=== PATIENT | male | born 1930 | race Caucasian/White ===

== ENCOUNTER → 2016-08-02 | Outpatient (CLI) | payer MEDICARE, BC ==
[2016-08-02 13:13] LABS: Blood Urea Nitrogen 16 mg/dL (9-20); Non-African American GFR(MDRD) 58 (>60 ml/min/1.73 sqM)
--- NOTE | 2016-08-02 14:57 | CT ---
CT angiogram thoracic and abdominal aorta HISTORY: Iliac aneurysm Helical acquisition obtained through the aorta and pelvis pre- and postadministration following 80 cc Visipaque IV. Three-dimensional reconstructions performed on an alternate workstation. Correlation to previous exam 21 July 2015, 12 July 2012 Findings at the lung bases are again noted, there are calcified pleural plaques, post median sternoto my change, soft tissue density present along the left hemidiaphragm with some associated calcificatio n. Calcified right hilar, subcarinal nodes left hilar nodes again noted. No thoracic aortic root aneu rysm evident, ascending aorta 3.8 cm. Descending aorta measures 2.8 cm. At the infrarenal location th ere may be a small limited dissection, aorta measures 2.8 cm, some luminal plaque is present. More di stally at the level just proximal to the bifurcation there is also luminal plaque, possible limited d issection, diameter is approximately 2.9 cm. Right common iliac artery also shows luminal irregularit y and measures 2.8 cm, there may be a limited dissection. Left common iliac artery shows a smaller ar ea of possible limited dissection distally with luminal plaque, maximal diameter of the common iliac artery on the left 14 mm. Internal and external iliac arteries are patent and show normal caliber, co mmon femoral, proximal deep and superficial femoral arteries show normal caliber. Superior mesenteric artery, celiac axis, renal arteries, superior aortic branch vessels are patent. Granulomatous changes also present in the liver and spleen. IMPRESSION: Aneurysmal change as described, additional findings above
== END | disposition home or self-care (01) ==
LOC: RADCTMAIN 12:41
PROVIDERS: ATTEND Thoracic Surgery (Cardiothoracic Vascular Surgery)
DX: I72.3 Aneurysm of iliac artery (principal)
CPT/HCPCS: 82565; 84520; 75635; 71275; 36415; Q9967

== ENCOUNTER 2017-11-18 04:27 | Inpatient (IN) | payer MEDICARE, BC ==
--- NOTE | 2017-11-18 04:49 | CT ---
EXAMINATION TYPE: CT brain wo con DATE OF EXAM: 11/18/2017 COMPARISON: 11/19/2015 HISTORY: stroke CT DLP: 1380 mGycm Automated exposure control for dose reduction was used. FINDINGS: There is severe diffuse cerebral atrophy. There is hypodensity in the periventricular white matter. T here is no mass effect nor midline shift. There is enlargement of the ventricles. There is no evidenc e of intracranial hemorrhage. There is extensive mucosal thickening and opacification in the ethmoid and maxillary sinuses. This is also present to a lesser extent in the sphenoid sinus. I see no focal bone destruction. IMPRESSION: ADVANCED ATROPHY AND CHRONIC SMALL VESSEL ISCHEMIA. NO ACUTE INTRACRANIAL ABNORMALITY. I DO NOT SEE E VIDENCE OF AN ACUTE INFARCT. SINUSITIS. NO SIGNIFICANT CHANGE COMPARED TO OLD EXAM.
[2017-11-18 04:59] LABS: Basophils % (A) 0 %; Eosinophils # (A) 0.8 k/uL (0-0.7); Eosinophils % (A) 11 %; HCT 36.6 % (39.0-53.0); HGB 12.2 gm/dL (13.0-17.5); Lymphocytes # (A) 2.6 k/uL (1.0-4.8); Lymphocytes % (A) 36 %; MCH 30.7 pg (25.0-35.0); MCHC 33.4 g/dL (31.0-37.0); MCV 91.8 fL (80.0-100.0); Mean Platelet Volume 9.1; Monocytes # (A) 0.7 k/uL (0-1.0); Monocytes % (A) 10 %; Neutrophils % (A) 41 %; Platelet Count 201 k/uL (150-450); RBC 3.99 m/uL (4.30-5.90); RDW 13.2 % (11.5-15.5); WBC 7.3 k/uL (3.8-10.6)
--- NOTE | 2017-11-18 05:02 | CT ---
EXAMINATION TYPE: CT angio head neck DATE OF EXAM: 11/18/2017 HISTORY: stroke COMPARISON: None CT DLP: 268.30 mGycm. Automated Exposure Control for Dose Reduction was Utilized. TECHNIQUE: CTA scan of the neck is performed with IV Contrast, patient injected with 65 mL of Isovue 370, axial images are obtained, coronal and sagittal reformatted images are reviewed. Three-D recons tructed images are created on an independent workstation and reviewed. FINDINGS: The ascending aorta measures 3.7 cm at the top of the aortic arch. There is normal branching pattern of the great vessels on the aortic arch. There is arterial flow in both vertebral arteries which are fairly symmetric. There is arterial flow in both common carotid arteries. There is very severe stenos is at the origin of the right internal carotid artery. Stenosis is estimated 90%. There is extensive plaque on the left side at the carotid artery bifurcation an estimated stenosis of 75%. The vertebral artery on the left side fills the basilar artery. Basilar artery appears to fill entire ly from the left side. There is arterial flow in the anterior middle and posterior cerebral arteries. I see no evidence of a neurysm or neovascularity. I see no sign of intracranial arterial stenosis. There is no mass effect. There is no evidence of spasm. There is some atherosclerotic plaque and calc ification in the intracranial internal carotid arteries without evidence of significant stenosis. There is normal contrast opacification of the venous sinuses. Impression Atherosclerotic vascular disease. There is approximate 90% stenosis at the origin of the right buying intern al carotid artery. There is approximate 75% stenosis at the origin left internal carotid artery. No e vidence of any significant intracranial arterial stenosis.
[2017-11-18 05:06] LABS: Glucose,Whole Blood 117 mg/dL (75-99)
[2017-11-18 05:09] LABS: INR 1.1 (<1.2); Partial Thromboplastin Time 22.8 sec (22.0-30.0); Prothrombin Time 10.3 sec (9.0-12.0)
[2017-11-18 05:10] LABS: Albumin 3.1 g/dL (3.5-5.0); Calcium 8.9 mg/dL (8.4-10.2); Creatine Kinase 38 U/L (55-170); Potassium 4.3 mmol/L (3.5-5.1); Total Bilirubin 0.4 mg/dL (0.2-1.3); Total Protein 6.1 g/dL (6.3-8.2)
[2017-11-18 05:22] LABS: Creatine Kinase MB 0.4 ng/mL (0.0-2.4); Troponin I <0.012 ng/mL (0.000-0.034)
--- NOTE | 2017-11-18 05:33 | XR ---
EXAMINATION TYPE: XR chest 1V portable DATE OF EXAM: 11/18/2017 COMPARISON: 08/28/2016 HISTORY: Altered mental status TECHNIQUE: Single frontal view of the chest is obtained. FINDINGS: There is slight blunting of costophrenic angles. There is no heart failure. Thoracic aorta is atheromatous. There are sternal wires. There are chest leads. There is some coarsening of interst itial markings. IMPRESSION: Pulmonary fibrotic changes. No heart failure. There is some pleural reaction at the lung bases that is slightly worse than last exam.
[2017-11-18] MEDS ORDERED: ASPIRIN 325 MG TAB PO STA (07:26)
--- NOTE | 2017-11-18 07:26 | ED ---
Neuro HPI - General Chief Complaint: Altered Mental Status Stated Complaint: Neuro Deficits Time Seen by Provider: 11/18/17 04:29 Source: EMS Mode of arrival: EMS Limitations: language barrier, altered mental status - History of Present Illness Is the patient presenting with stroke symptoms?: Yes Last Known Well Date: 11/17/17 Last Known Well Time: 23:00 Onset/Timin -: hour(s) Initial Comments: This patient is an 87-year-old man brought to be evaluated for suspected stroke. The history is from the patient's partner, she states that he had gone to bed around 11 PM and appeared to be in his usual state of health. He does have moderate underlying dementia. He had gotten up around 4 AM to use the bathroom. She states that when he was going back to bed he appeared to be significantly weak and then slumped down next to the toilet resting his head on his arms and they were not able to get him back up. They state that at that time his speech did appear to be slurred. They also felt he had some right- sided weakness of face and possibly body. The patient does have history of previous TIA. Location: speech, right face History of same: Yes Place: home Severity: moderate Quality: weak Improves With: none Worsens With: none On Anticoagulants: No Associated Symptoms: denies other symptoms Treatments Prior to Arrival: none - Related Data Home Medications: Home Medications Medication Instructions Recorded Confirmed Albuterol Sulfate [Proventil Hfa] 6.7 gm INHALATION RT-DAILY PRN 12/03/13 Mometasone Furoate [Asmanex] 220 mcg INHALATION RT-BID 12/03/13 11/18/17 Omeprazole [PriLOSEC] 20 mg PO DAILY 12/03/13 11/18/17 Aspirin EC [Ecotrin] 81 mg PO DAILY 11/12/15 11/18/17 Cholecalciferol [Vitamin D3] 2,000 units PO DAILY 11/12/15 11/18/17 Metoprolol Tartrate [Lopressor] 25 mg PO DAILY 11/18/17 11/18/17 Allergies/Adverse Reactions: Allergies Allergy/AdvReac Type Severity Reaction Status Date / Time No Known Allergies Allergy Verified 11/18/17 10:13 Review of Systems ROS Statement: Those systems with pertinent positive or pertinent negative responses have been documented in the HPI. ROS Other: All systems not noted in ROS Statement are negative. Limitations: ROS unobtainable due to patients medical condition Constitutional: Reports: fever (Patient reportedly felt hot, but no temperature measured) Respiratory: Denies: cough, dyspnea Cardiovascular: Denies: syncope Gastrointestinal: Denies: vomiting, diarrhea Neurological: Reports: weakness, confusion, abnormal gait General Exam Limitations: language barrier, altered mental status General appearance: alert Head exam: Present: atraumatic, normocephalic Eye exam: Present: normal appearance, PERRL, EOMI. Absent: scleral icterus, conjunctival injection ENT exam: Present: normal oropharynx, other (Right-sided facial droop) Neck exam: Present: normal inspection, full ROM. Absent: meningismus Respiratory exam: Present: normal lung sounds bilaterally. Absent: respiratory distress, wheezes, rales, rhonchi, stridor Cardiovascular Exam: Present: regular rate, normal rhythm, systolic murmur. Absent: diastolic murmur, rubs, gallop GI/Abdominal exam: Present: soft. Absent: distended, tenderness, guarding, rebound, mass Extremities exam: Present: normal inspection, normal capillary refill. Absent: pedal edema, calf tenderness Back exam: Present: normal inspection Neurological exam: Present: alert, motor sensory deficit (Patient not moving the right side equally), other (Patient is not able to follow commands, though on observation he does appear to not move the right side equally though he is able to overcome gravity.). Absent: oriented X3 (Patient is oriented to person only), CN II-XII intact (There is right-sided facial droop) Skin exam: Present: warm, dry, intact, normal color. Absent: rash Stroke MDM - Lab Data Result diagrams: 11/18/17 04:41 11/18/17 04:41 Lab Results 11/18/17 11/18/17 11/18/17 Range/Units 04:41 04:41 04:41 WBC 7.3 (3.8-10.6) k/uL RBC 3.99 L (4.30-5.90) m/uL Hgb 12.2 L (13.0-17.5) gm/dL Hct 36.6 L (39.0-53.0) % MCV 91.8 (80.0-100.0) fL MCH 30.7 (25.0-35.0) pg MCHC 33.4 (31.0-37.0) g/dL RDW 13.2 (11.5-15.5) % Plt Count 201 (150-450) k/uL Neutrophils % 41 % Lymphocytes % 36 % Monocytes % 10 % Eosinophils % 11 % Basophils % 0 % Neutrophils # 3.0 (1.3-7.7) k/uL Lymphocytes # 2.6 (1.0-4.8) k/uL Monocytes # 0.7 (0-1.0) k/uL Eosinophils # 0.8 H (0-0.7) k/uL Basophils # 0.0 (0-0.2) k/uL PT (9.0-12.0) sec INR (<1.2) APTT (22.0-30.0) sec Sodium 136 L (137-145) mmol/L Potassium 4.3 (3.5-5.1) mmol/L Chloride 107 (98-107) mmol/L Carbon Dioxide 22 (22-30) mmol/L Anion Gap 7 mmol/L BUN 17 (9-20) mg/dL Creatinine 1.30 H (0.66-1.25) mg/dL Est GFR (CKD-EPI)AfAm 57 (>60 ml/min/1.73 sqM) Est GFR (CKD-EPI)NonAf 49 (>60 ml/min/1.73 sqM) Glucose 117 H (74-99) mg/dL POC Glucose (mg/dL) (75-99) mg/dL POC Glu Beauty [employer] Manager ID Calcium 8.9 (8.4-10.2) mg/dL Total Bilirubin 0.4 (0.2-1.3) mg/dL AST 22 (17-59) U/L ALT 24 (21-72) U/L Alkaline Phosphatase 85 (38-126) U/L Total Creatine Kinase 38 L (55-170) U/L CK-MB (CK-2) 0.4 (0.0-2.4) ng/mL CK-MB (CK-2) Rel Index 1.1 Troponin I <0.012 (0.000-0.034) ng/mL Total Protein 6.1 L (6.3-8.2) g/dL Albumin 3.1 L (3.5-5.0) g/dL Triglycerides (<150) mg/dL Cholesterol (<200) mg/dL LDL Cholesterol, Calc (0-99) mg/dL HDL Cholesterol (40-60) mg/dL 11/18/17 11/18/17 11/18/17 Range/Units 04:41 04:41 04:45 WBC (3.8-10.6) k/uL RBC (4.30-5.90) m/uL Hgb (13.0-17.5) gm/dL Hct (39.0-53.0) % MCV (80.0-100.0) fL MCH (25.0-35.0) pg MCHC (31.0-37.0) g/dL RDW (11.5-15.5) % Plt Count (150-450) k/uL Neutrophils % % Lymphocytes % % Monocytes % % Eosinophils % % Basophils % % Neutrophils # (1.3-7.7) k/uL Lymphocytes # (1.0-4.8) k/uL Monocytes # (0-1.0) k/uL Eosinophils # (0-0.7) k/uL Basophils # (0-0.2) k/uL PT 10.3 (9.0-12.0) sec INR 1.1 (<1.2) APTT 22.8 (22.0-30.0) sec Sodium (137-145) mmol/L Potassium (3.5-5.1) mmol/L Chloride (98-107) mmol/L Carbon Dioxide (22-30) mmol/L Anion Gap mmol/L BUN (9-20) mg/dL Creatinine (0.66-1.25) mg/dL Est GFR (CKD-EPI)AfAm (>60 ml/min/1.73 sqM) Est GFR (CKD-EPI)NonAf (>60 ml/min/1.73 sqM) Glucose (74-99) mg/dL POC Glucose (mg/dL) 117 H (75-99) mg/dL POC Glu Beauty [employer] Manager ID Gayle Jon Calcium (8.4-10.2) mg/dL Total Bilirubin (0.2-1.3) mg/dL AST (17-59) U/L ALT (21-72) U/L Alkaline Phosphatase (38-126) U/L Total Creatine Kinase (55-170) U/L CK-MB (CK-2) (0.0-2.4) ng/mL CK-MB (CK-2) Rel Index Troponin I (0.000-0.034) ng/mL Total Protein (6.3-8.2) g/dL Albumin (3.5-5.0) g/dL Triglycerides 140 (<150) mg/dL Cholesterol 149 (<200) mg/dL LDL Cholesterol, Calc 93 (0-99) mg/dL HDL Cholesterol 28 L (40-60) mg/dL - Thrombolytic Inclusion/Exclusion Thrombolytic Exclusion Criteria: Onset of Symptoms Unknown Thrombolytic Contraindications: Rapidly Improving s/s - Medical Decision Making Patient is an 87-year-old man with moderate underlying dementia, brought in with suspected stroke. The patient is having rapid improvement in the symptoms , after returning from the CT he was able to squeeze fingers with his right hand and his speech is not displaying dysarthria. After another 20-30 minutes, family states that he does appear to be at his baseline. I did discuss results of studies with the patient is family, and they would like the patient to be evaluated by the neurologist. Case discussed with admitting physician. 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, 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 History of Any Multi-Drug Resistant Organisms: None Reported Past Surgical History: Appendectomy, Cholecystectomy, Coronary Bypass/CABG Additional Past Surgical History / Comment(s): double bypass approx 8 yrs ago Past Anesthesia/Blood Transfusion Reactions: No Reported Reaction Past Psychological History: No Psychological Hx Reported Smoking Status: Former smoker Past Alcohol Use History: None Reported Past Drug Use History: None Reported - Past Family History Father Family Medical History: Myocardial Infarction ([place]) Additional Family Medical History / Comment(s): father in his 50'a Course Vital Signs 11/18/17 11/18/17 11/18/17 04:41 05:15 05:25 Temperature 97.0 F L Pulse Rate 67 64 58 L Respiratory 20 18 20 Rate Blood Pressure 171/74 164/72 163/72 O2 Sat by Pulse 95 94 L 97 Oximetry 11/18/17 11/18/17 11/18/17 05:44 05:55 06:10 Temperature Pulse Rate 60 53 L 57 L Respiratory 18 20 20 Rate Blood Pressure 154/70 164/73 162/72 O2 Sat by Pulse 98 100 98 Oximetry 11/18/17 11/18/17 11/18/17 06:25 06:40 07:13 Temperature Pulse Rate 53 L 57 L 60 Respiratory 20 20 18 Rate Blood Pressure 158/65 160/74 173/75 O2 Sat by Pulse 98 95 98 Oximetry 11/18/17 11/18/17 11/18/17 07:26 08:26 10:13 Temperature Pulse Rate 55 L 58 L 64 Respiratory 18 18 18 Rate Blood Pressure 181/84 181/81 187/85 O2 Sat by Pulse 96 98 97 Oximetry 11/18/17 11/18/17 12:30 14:40 Temperature 97.0 F L Pulse Rate 87 77 Respiratory 18 18 Rate Blood Pressure 174/77 154/77 O2 Sat by Pulse 99 95 Oximetry Critical Care Time Critical Care Time: Yes (30 minutes) Disposition Clinical Impression: TIA (transient ischemic attack) Disposition: ADMITTED IP TO THIS [facility] Condition: Poor
[2017-11-18] MEDS: SODIUM CHLORIDE 0.9% 1,000 ML IV SCH (07:54)
[2017-11-18] MEDS ORDERED: LORazepam 2 MG/ML INJ IV STA (11:39)
[2017-11-18] MEDS: METOPROLOL TARTRATE 50 MG TAB PO SCH (11:48)
[2017-11-18] MEDS: PANTOPRAZOLE 40 MG TABLET PO SCH (11:52)
[2017-11-18] MEDS: CHOLECALCIFEROL 1,000 UNIT TAB PO SCH (11:53)
[2017-11-18 12:45] LABS: Appearance,Urine Clear (Clear); Bacteria,Urine Rare /hpf; Bilirubin,Urine Negative (Negative); Blood,Urine Trace (Negative); Color,Urine Yellow; Glucose,Urine (UA) Negative (Negative); Ketones,Urine Negative (Negative); Leukocyte Esterase,Urine Negative (Negative); Nitrite,Urine Negative (Negative); PH, Urine 6.5 (5.0-8.0); Protein,Urine Negative (Negative); RBC,Urine 4 /hpf (0-5); Specific Gravity,Urine 1.035 (1.001-1.035); Squamous Epithelial Cell,Urine <1 /hpf (0-4); Urobilinogen,Urine <2.0 mg/dL (<2.0); WBC,Urine <1 /hpf (0-5)
--- NOTE | 2017-11-18 15:04 | P.HPIM ---
History of Present Illness H&P Date: 11/18/17 Chief Complaint: Stroke-like symptoms Patient is a 87-year-old male with a known history of coronary artery disease and CABG 8 years ago, COPD, history of TIA, dementia and hypertension was brought to the hospital for evaluation of suspected stroke. According to the family patient had gone to bed around 11 PM last night and appeared to be in his usual state of health. He woke up around 4 AM to use the bathroom to urinate and turned around to go to bed. Patient suddenly became so weak and slid down to the change from there to the floor. Patient apparently has been having left lower extremities weakness since falling 2017. Patient was not able to get up by is warm. As per the family patient's speech did appear to be slurred. Also noticed some right-sided weakness of face, Currently there is no facial droop noted. Patient is able to swallow and does speak without difficulty. Patient does have underlying dementia otherwise. No fever no chills. No nausea vomiting or abdominal pain no diarrhea. No recent illnesses. EKG showed sinus rhythm with first-degree AV block Chest x-ray showed pulmonary fibrotic changes. No heart failure. There is some pleural reaction at the lung bases that is slightly worse than last exam CT head without contrast showed advanced atrophy and chronic small was ischemia. No acute intracranial abnormality. I don't see evidence of an acute infarct. Sinusitis. No children changed compared to old exam CT angiogram of the neck showed atherosclerotic vascular disease. There is approximate 90% stenosis at the origin of the right internal carotid artery. It is approximately 75% stenosis at the origin of the left internal carotid artery. No evidence of any significant intracranial arterial stenosis. Review of Systems Constitutional: Patient denies any fever or chills . Does have generalized weakness.. Abdomen: Patient denied nausea vomiting and diarrhea and abdominal pain. Cardiovascular: Patient denies any chest pain or short of breath no palpitations. Respiratory: patient denied any cough is from production. No shortness of breath Neurologic: Patient denied any numbness or tingling headache. No facial droop or slurring speech. 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, 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 History of Any Multi-Drug Resistant Organisms: None Reported Past Surgical History: Appendectomy, Cholecystectomy, Coronary Bypass/CABG Additional Past Surgical History / Comment(s): double bypass approx 8 yrs ago Past Anesthesia/Blood Transfusion Reactions: No Reported Reaction Past Psychological History: No Psychological Hx Reported Smoking Status: Former smoker Past Alcohol Use History: None Reported Past Drug Use History: None Reported - Past Family History Father Family Medical History: Myocardial Infarction ([place]) Additional Family Medical History / Comment(s): father in his 50'a Medications and Allergies Home Medications Medication Instructions Recorded Confirmed Type Albuterol Sulfate [Proventil Hfa] 6.7 gm INHALATION RT-DAILY PRN 12/03/13 History Mometasone Furoate [Asmanex] 220 mcg INHALATION RT-BID 12/03/13 11/18/17 History Omeprazole [PriLOSEC] 20 mg PO DAILY 12/03/13 11/18/17 History Aspirin EC [Ecotrin] 81 mg PO DAILY 11/12/15 11/18/17 History Cholecalciferol [Vitamin D3] 2,000 units PO DAILY 11/12/15 11/18/17 History Metoprolol Tartrate [Lopressor] 25 mg PO DAILY 11/18/17 11/18/17 History Allergies Allergy/AdvReac Type Severity Reaction Status Date / Time No Known Allergies Allergy Verified 11/18/17 10:13 Physical Exam Vitals: Vital Signs Temp Pulse Resp BP Pulse Ox 11/18/17 10:13 64 18 187/85 97 11/18/17 08:26 58 L 18 181/81 98 11/18/17 07:26 55 L 18 181/84 96 11/18/17 07:13 60 18 173/75 98 11/18/17 06:40 57 L 20 160/74 95 11/18/17 06:25 53 L 20 158/65 98 11/18/17 06:10 57 L 20 162/72 98 11/18/17 05:55 53 L 20 164/73 100 11/18/17 05:44 60 18 154/70 98 11/18/17 05:25 58 L 20 163/72 97 11/18/17 05:15 64 18 164/72 94 L 11/18/17 04:41 97.0 F L 67 20 171/74 95 Intake and Output 11/17/17 11/18/17 11/18/17 22:59 06:59 14:59 Other: Weight 77.383 kg PHYSICAL EXAMINATION: Patient is lying in the bed comfortably, no acute distress, awake alert and oriented2-3.. HEENT: Normocephalic. Neck is supple. Pupils reactive. Nostrils clear. Oral cavity is moist. Ears reveal no drainage. Neck reveals no JVD, carotid bruits, or thyromegaly. CHEST EXAMINATION: Trachea is central. Symmetrical expansion. Lung gonzalez clear to auscultation and percussion. CARDIAC: Normal S1, S2 with no gallops. No murmurs ABDOMEN: Soft. Bowel sounds normal. No organomegaly. No abdominal bruits. Extremities: reveal no edema. No clubbing or cyanosis Neurologically awake, alert, oriented x2-3 with well-coordinated movements. Patient does have generalized bilateral upper extremities weakness. No focal weakness noted. Patient does have underlying dementia. Skin: No rash or skin lesions. Psychiatric: Coperative. Could not bases completely. Musculoskeletal: No joint swelling or deformity. Results CBC & Chem 7: 11/18/17 04:41 11/18/17 04:41 Labs: Abnormal Lab Results - Last 24 Hours (Table) 11/18/17 11/18/17 11/18/17 Range/Units 04:41 04:41 04:41 RBC 3.99 L (4.30-5.90) m/uL Hgb 12.2 L (13.0-17.5) gm/dL Hct 36.6 L (39.0-53.0) % Eosinophils # 0.8 H (0-0.7) k/uL Sodium 136 L (137-145) mmol/L Creatinine 1.30 H (0.66-1.25) mg/dL Glucose 117 H (74-99) mg/dL POC Glucose (mg/dL) (75-99) mg/dL Total Creatine Kinase 38 L (55-170) U/L Total Protein 6.1 L (6.3-8.2) g/dL Albumin 3.1 L (3.5-5.0) g/dL 11/18/17 Range/Units 04:45 RBC (4.30-5.90) m/uL Hgb (13.0-17.5) gm/dL Hct (39.0-53.0) % Eosinophils # (0-0.7) k/uL Sodium (137-145) mmol/L Creatinine (0.66-1.25) mg/dL Glucose (74-99) mg/dL POC Glucose (mg/dL) 117 H (75-99) mg/dL Total Creatine Kinase (55-170) U/L Total Protein (6.3-8.2) g/dL Albumin (3.5-5.0) g/dL Thrombosis Risk Factor Assmnt - DVT/VTE Prophylaxis DVT/VTE Prophylaxis: Pharmacologic Prophylaxis ordered Assessment and Plan Assessment: Possible acute CVA Bilateral carotid artery stenosis History of recent TIA Uncontrolled hypertension COPD stable History of coronary artery disease status post CABG Dementia GERD DVT prophylaxis Previous history of smoking Plan: Patient will be continued on aspirin. CT head and CT angiogram of the neck was done. Neurology was consulted. Vascular surgery was consulted due to carotid artery stenosis. We will continue with neuro checks and follow closely. Continue with home medications. Discussed with the family at bedside. Further recommendations based on the clinical course. Time with Patient: Greater than 30
--- NOTE | 2017-11-18 19:45 | P.CNNES ---
History of Present Illness Consult date: 11/18/17 Reason for Consult: Patient admitted with TIA and severe right carotid artery stenosis. History of Present Illness: This patient is a 87-year-old right-handed white male who has a history of severe dementia. He apparently lives at home with his who takes complete care of him and provides all of his daily needs. He is not currently in any nursing facility at this time. According to the daughter who was at bedside the patient had gone to bed at about 11 PM yesterday evening and appear to be in his usual state of health. As noted he has underlying dementia but did not seem to be showing any other new signs of change. He awoke at about 4 AM to use the bathroom and apparently felt very weak and slid down onto the floor and was unable to get up. Patient has history of left lower extremity weakness after sustaining a fall back in June of this year. Apparently the patient was so weak he could not get up. According to the daughter who is at bedside he also had some slurring of his speech. He was also noted to have possible right sided face sterile weakness. Patient does have history of previous TIA. EMS was called to the home and he was brought into the emergency room at [facility] for further evaluation. He was seen in the ER by Dr. Álvarez who ordered a computed tomography scan of the brain and CTA angiogram of the head and neck. Computed tomography scan of the brain revealed advanced atrophy and chronic small vessel ischemia. No evidence of acute intracranial abnormality was noted. No evidence of acute stroke. Review of the actual CAT scan films of the brain reveals very severe cortical atrophy consistent with his history of severe dementia. Patient also underwent CTA angiogram of the head and neck. Results indicated 90% stenosis of the right internal carotid artery and 75% stenosis of the left internal carotid artery. According to the daughter she is not aware of previous carotid Doppler studies for him in the past. Given his clinical history there was concern for possibility of right hemispheric TIA given his left-sided leg weakness. Due to this severe carotid arteries stenosis vascular surgery has been consulted. Patient does not complain of any significant weakness on examination at this time. He is a very poor historian due to his dementia. Patient is now admitted and neurology has been consulted for further evaluation and recommendations. Review of Systems Constitutional: Denies chills, Denies fever Eyes: denies blurred vision, denies pain Ears, nose, mouth and throat: Denies headache, Denies sore throat Cardiovascular: Denies chest pain, Denies shortness of breath Respiratory: Denies cough Gastrointestinal: Denies abdominal pain, Denies diarrhea, Denies nausea, Denies vomiting Musculoskeletal: Denies myalgias Integumentary: Denies pruritus, Denies rash Neurological: Reports change in mentation, Reports change in speech, Reports confusion, Reports gait dysfunction, Reports memory loss, Reports motor disturbance, Reports syncope, Denies numbness, Denies weakness Psychiatric: Denies anxiety, Denies depression Endocrine: Denies fatigue, Denies weight change 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, 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 History of Any Multi-Drug Resistant Organisms: None Reported Past Surgical History: Appendectomy, Cholecystectomy, Coronary Bypass/CABG Additional Past Surgical History / Comment(s): double bypass approx 8 yrs ago Past Anesthesia/Blood Transfusion Reactions: No Reported Reaction Past Psychological History: No Psychological Hx Reported Smoking Status: Former smoker Past Alcohol Use History: None Reported Past Drug Use History: None Reported - Past Family History Father Family Medical History: Myocardial Infarction ([place]) Additional Family Medical History / Comment(s): father in his 50'a Medications and Allergies Home Medications Medication Instructions Recorded Confirmed Type Albuterol Sulfate [Proventil Hfa] 6.7 gm INHALATION RT-DAILY PRN 12/03/13 History Mometasone Furoate [Asmanex] 220 mcg INHALATION RT-BID 12/03/13 11/18/17 History Omeprazole [PriLOSEC] 20 mg PO DAILY 12/03/13 11/18/17 History Aspirin EC [Ecotrin] 81 mg PO DAILY 11/12/15 11/18/17 History Cholecalciferol [Vitamin D3] 2,000 units PO DAILY 11/12/15 11/18/17 History Metoprolol Tartrate [Lopressor] 25 mg PO DAILY 11/18/17 11/18/17 History Allergies Allergy/AdvReac Type Severity Reaction Status Date / Time No Known Allergies Allergy Verified 11/18/17 10:13 Physical Examination - Vital Signs Vital Signs: Vital Signs Temp Pulse Resp BP Pulse Ox 11/18/17 14:40 97.0 F L 77 18 154/77 95 11/18/17 12:30 87 18 174/77 99 11/18/17 10:13 64 18 187/85 97 11/18/17 08:26 58 L 18 181/81 98 11/18/17 07:26 55 L 18 181/84 96 11/18/17 07:13 60 18 173/75 98 11/18/17 06:40 57 L 20 160/74 95 11/18/17 06:25 53 L 20 158/65 98 11/18/17 06:10 57 L 20 162/72 98 11/18/17 05:55 53 L 20 164/73 100 11/18/17 05:44 60 18 154/70 98 11/18/17 05:25 58 L 20 163/72 97 11/18/17 05:15 64 18 164/72 94 L 11/18/17 04:41 97.0 F L 67 20 171/74 95 Intake and Output 11/18/17 11/18/17 11/18/17 06:59 14:59 22:59 Other: Weight 77.383 kg - Constitutional General appearance: average body habitus, cooperative - EENT EENT: PERRL, mucous membranes moist - Respiratory Respiratory: lungs clear, normal breath sounds - Cardiovascular Cardiovascular: regular rate, normal S1, normal S2 Extremities: no peripheral edema bilaterally - Gastrointestinal Gastrointestinal: normoactive bowel sounds - Integumentary Integumentary: normal - Neurologic Cranial nerve examination: PERRL, EOMI, VFF, V1/V2/V3 grossly intact, face symmetric, intact gag reflex, intact corneal reflex, normal palatal elevation Speech examination: intact Sensorimotor examination: intact Motor examination - right side: 4/5: biceps, triceps, wrist flexion, wrist extension, flour tester, hip flexors, knee extensors, dorsiflexion, toe extension (EHL) , plantarflexion Motor examination - left side: 3/5: hip flexors, knee extensors, dorsiflexion, toe extension (EHL), plantarflexion, 4/5: biceps, triceps, wrist flexion, wrist extension, flour tester Detailed sensory examination: intact Reflex and gait examination: intact Reflexes: 1+: ankle, bicep, knee, tricep - Musculoskeletal Musculoskeletal: no pain - Psychiatric Psychiatric: mood/affect appropriate, cooperative Results - Laboratory Findings CBC and BMP: 11/18/17 04:41 11/18/17 04:41 Abnormal Lab Findings: Abnormal Labs 11/18/17 11/18/17 11/18/17 04:41 04:41 04:41 RBC 3.99 L Hgb 12.2 L Hct 36.6 L Eosinophils # 0.8 H Sodium 136 L Creatinine 1.30 H Glucose 117 H POC Glucose (mg/dL) Total Creatine Kinase 38 L Total Protein 6.1 L Albumin 3.1 L Urine Blood Urine Bacteria 11/18/17 11/18/17 04:45 12:34 RBC Hgb Hct Eosinophils # Sodium Creatinine Glucose POC Glucose (mg/dL) 117 H Total Creatine Kinase Total Protein Albumin Urine Blood Trace H Urine Bacteria Rare H Assessment and Plan (1) TIA (transient ischemic attack) Current Visit: Yes Status: Acute Code(s): G45.9 - TRANSIENT CEREBRAL ISCHEMIC ATTACK, UNSPECIFIED SNOMED Code(s): 247499746 (2) Advanced dementia Current Visit: Yes Status: Acute Code(s): F03.90 - UNSPECIFIED DEMENTIA WITHOUT BEHAVIORAL DISTURBANCE SNOMED Code(s): 93583549 (3) Carotid artery disease Current Visit: Yes Status: Acute Code(s): I77.9 - DISORDER OF ARTERIES AND ARTERIOLES, UNSPECIFIED SNOMED Code(s): 424470461 (4) Uncontrolled hypertension Current Visit: Yes Status: Acute Code(s): I10 - ESSENTIAL (PRIMARY) HYPERTENSION SNOMED Code(s): 05894348 Plan: This patient is a 87-year-old right-handed white male admitted to Hospital with symptoms of generalized weakness and fall at home. Rarely was noted to have slurred speech and left lower extremity weakness initially yesterday and was brought into the hospital. He was seen in the emergency room by Dr. Álvarez ordered computed tomography scan of the brain and CTA angiogram of the head and neck. Results are as noted above. Patient has severe right carotid artery stenosis greater than 90% and will require vascular surgery consultation. He has advanced dementia as noted by his computed tomography scan of the brain results. We will continue close neurological follow-up with the patient. Clinical history at this time suggest possibility of acute TIA as cause of his current symptoms. We'll await further recommendations from vascular surgery. Would recommend tight control of his blood pressure is well. Given his age he may be limited done possible interventions but we will await further recommendations from other specialists. Patient is to continue on aspirin therapy at this time. His overall prognosis at this time remains very guarded. Case was discussed at length with the patient's daughter who is at bedside. All of her questions were answered. She is per of our current findings and recommendations. We will continue close neurological follow-up for this patient during this admission. Time with Patient: Greater than 30
[2017-11-18] MEDS: BUDESONIDE 0.5 MG/2 ML NEBU INHALATION SCH (22:14)
[2017-11-18 23:31] LABS: Cholesterol 149 mg/dL (<200); HDL Cholesterol 28 mg/dL (40-60); LDL Cholesterol,Calculated 93 mg/dL (0-99); Triglycerides 140 mg/dL (<150)
[2017-11-19] MEDS: SODIUM CHLORIDE 0.9% 1,000 ML IV SCH (06:16)
[2017-11-19] MEDS: CHOLECALCIFEROL 1,000 UNIT TAB PO SCH (08:54)
[2017-11-19] MEDS: PANTOPRAZOLE 40 MG TABLET PO SCH (08:54)
[2017-11-19] MEDS: METOPROLOL TARTRATE 50 MG TAB PO SCH (08:54)
[2017-11-19] MEDS ORDERED: ASPIRIN 325 MG TAB PO SCH (09:00)
[2017-11-19] MEDS: BUDESONIDE 0.5 MG/2 ML NEBU INHALATION SCH ×2 (09:10→19:34)
--- NOTE | 2017-11-19 13:58 | CONS ---
CONSULTATION This is an 87-year-old gentleman who has been admitted to [facility] with history of passing out spell at home. He woke up in the morning and he could not get up. He had some slurring of speech with complete recovery. Patient had a similar TIA in the past. Patient has history of coronary artery disease and had a CABG done 8 years ago. Patient also has COPD and severe dementia. Patient also has a history of hypertension. Patient had a CT of the head which showed advanced atrophy and chronic small-vessel disease. No acute intracranial abnormality seen. CT angiogram of the neck showed atherosclerosis vascular disease. There is 80% stenosis of the origin of the right internal carotid artery and 75% stenosis origin of the left internal carotid artery and no evidence of any intracranial vessel disease. PAST HISTORY: Patient had coronary artery disease, COPD, history of TIA in the past, history of severe dementia, history of hypertension, history of memory impairment. PHYSICAL EXAMINATION: Patient was seen in his room with his daughter. His neck is supple. Chest is clear to auscultation. Abdomen is soft, nontender. Vascular examination, brachial and radial femoral pulses are present. CENTRAL NERVOUS SYSTEM: Patient has a normal motor function of the upper and lower extremity. No weakness noted on either extremity. CT of the carotid shows right side 90%, left side 75%, No intracranial bleeding or infarction noted. Patient is on antiplatelet platelet therapy and I have discussed with the daughter and the family. Patient was discussed of the options. Most likely he may have incidental finding of the bilateral carotid stenosis. I have discussed with the family about the surgical intervention. They seem to be reluctant to go for any major vascular intervention because of age and severe dementia. Will follow with you and will discuss with the family and with Dr. Hart again. MMODL / IJN: [id number] /
--- NOTE | 2017-11-19 15:09 | ECHOF ---
Referral Reason:Thrombus MEASUREMENTS -------- HEIGHT: 172.7 cm WEIGHT: 75.8 kg BP: 139/67 IVSd: 1.2 cm (0.6 - 1.1) LVIDd: 4.0 cm (3.9 - 5.3) LVPWd: 1.5 cm (0.6 - 1.1) IVSs: 1.8 cm LVIDs: 2.6 cm LVPWs: 1.6 cm Ao Diam: 3.4 cm (2.0 - 3.7) LA Diam: 3.6 cm (2.7 - 3.8) AV Cusp: 1.9 cm (1.5 - 2.6) EPSS: 1.3 cm RAP: 5.00 mmHg RVSP: 7.85 mmHg MV EF SLOPE: 29.50 mm/s (70 - 150) MV EXCURSION: 9.72 mm (> 18.000) FINDINGS -------- Sinus rhythm. This was a technically difficult study with suboptimal views. Pt. is combative. Pt refused rest of test. The left ventricular size is normal. There is mild concentric left ventricular hypertrophy. Overa ll left ventricular systolic function is normal with, an EF between 55 - 60 %. The right ventricle is normal in size and function. The left atrium is normal in size. The right atrium is normal in size. Aortic valve is trileaflet and is mildly thickened. The mitral valve was not well visualized. The tricuspid valve was not well visualized. The pulmonic valve was not well visualized. CONCLUSIONS -------- 1. Sinus rhythm. 2. This was a technically difficult study with suboptimal views. 3. Pt. is combative. Pt refused rest of test. 4. The left ventricular size is normal. 5. There is mild concentric left ventricular hypertrophy. 6. Overall left ventricular systolic function is normal with, an EF between 55 - 60 %. 7. The right ventricle is normal in size and function. 8. The left atrium is normal in size. 9. The right atrium is normal in size. 10. Aortic valve is trileaflet and is mildly thickened. 11. The mitral valve was not well visualized. 12. The tricuspid valve was not well visualized. 13. The pulmonic valve was not well visualized. IT COMPLIANCE MANAGER: Ava Jacobsen [facility]
[2017-11-19] MEDS ORDERED: HALOPERIDOL LACTATE 5 MG/ML 1 ML VIAL IM PRN (17:34)
[2017-11-19] MEDS: ALBUTEROL NEBULIZED 2.5 MG/3 ML INHALATION PRN (19:34)
--- NOTE | 2017-11-20 00:26 | P.PN ---
Subjective Progress Note Date: 11/19/17 This patient is a 87-year-old male being evaluated for recent episode of TIA. He underwent carotid Doppler ultrasound which reveals significant carotid artery stenosis in the right internal carotid artery. Vascular surgery has been consulted. Patient has a history of underlying dementia which has remained stable. He underwent computed tomography scan of the brain which reveals severe cortical atrophy of both hemispheres. Patient was evaluated by vascular surgery today and treatment options were discussed with the daughter and they are reluctant to go forward with any major vascular intervention because of his age and severe dementia at this time. We will continue to monitor his progress closely during this admission. Patient's was at bedside today and we did update her on her his overall neurological status and recent carotid findings. He underwent a echocardiogram today as well which reveals ejection fraction of 5560 percent. Patient is pleasantly confused. He does follow simple commands. He is having some difficulty eating his dinner today but otherwise according to his has been relatively stable. Patient' s clinical presentation on admission was suggesting left-sided leg weakness. This suggested the differential diagnosis of right hemispheric TIA. Given his severe carotid artery disease involving the right internal carotid artery the possibility of arterial sclerotic disease as a cause of his TIA remains high. As noted at this time he is not considered a surgical candidate. We will continue close neurological follow-up with the patient during this admission. His overall prognosis remains guarded. Objective - Vital Signs Vital signs: Vital Signs Temp 97.9 F 11/19/17 19:24 Pulse 80 11/19/17 19:46 Resp 18 11/19/17 19:25 BP 120/59 11/19/17 19:24 Pulse Ox 99 11/19/17 19:24 Intake & Output 11/19/17 11/19/17 11/20/17 06:59 18:59 06:59 Intake Total 180 Balance 180 Weight 76 kg Intake: Oral 180 Other: Voiding Method Toilet Urinal Urinal # Voids 1 - Exam Physical examination: PHYSICAL EXAMINATION: Patient is resting comfortably in bed. VITAL SIGNS: Blood pressure is [120/59]. Heart rate is [58]. Respiration is [18] . Temperature is [97.9]. HEENT: Head is atraumatic, neck is supple, there were no carotid bruits. CHEST: Lungs are clear to auscultation and percussion. CARDIAC: S1, S2 normal rate and rhythm. There is no murmur. ABDOMEN: Soft and nontender. Bowel sounds are present. EXTREMITIES: There is no pedal edema. Peripheral pulses are present. Neurological examination: Patient's neurological examination is unchanged from yesterday. - Labs CBC & Chem 7: 11/18/17 04:41 11/18/17 04:41 Labs: Abnormal Lab Results - Last 24 Hours (Table) 11/18/17 Range/Units 04:41 HDL Cholesterol 28 L (40-60) mg/dL Assessment and Plan (1) TIA (transient ischemic attack) Current Visit: Yes Status: Acute Code(s): G45.9 - TRANSIENT CEREBRAL ISCHEMIC ATTACK, UNSPECIFIED SNOMED Code(s): 887015550 (2) Advanced dementia Current Visit: Yes Status: Acute Code(s): F03.90 - UNSPECIFIED DEMENTIA WITHOUT BEHAVIORAL DISTURBANCE SNOMED Code(s): 13681568 (3) Carotid artery disease Current Visit: Yes Status: Acute Code(s): I77.9 - DISORDER OF ARTERIES AND ARTERIOLES, UNSPECIFIED SNOMED Code(s): 971030023 (4) Uncontrolled hypertension Current Visit: Yes Status: Acute Code(s): I10 - ESSENTIAL (PRIMARY) HYPERTENSION SNOMED Code(s): 05354691 Plan: This patient is a 87-year-old male who has a long-standing history of advanced dementia and was admitted with possible TIA symptoms. He was seen by vascular surgery today and is not considered a good candidate for surgery as he has evidence of severe right internal carotid artery stenosis of 90%. Given his general for medical health and dementia family has decided to be very cautious in any aggressive treatment for this patient given his elderly age. Neurologically he remains intact. As mentioned his CAT scan of the brain does reveal severe cortical atrophy. This would be consistent with a severe form of dementia. We will continue close neurological follow-up with the patient during this admission. Overall prognosis at this time remains very guarded.
[2017-11-20] MEDS: ALBUTEROL NEBULIZED 2.5 MG/3 ML INHALATION PRN (08:27)
[2017-11-20] MEDS: BUDESONIDE 0.5 MG/2 ML NEBU INHALATION SCH (08:27)
[2017-11-20 08:29] VITALS: BP 124/63; PULSE 64; TEMP 97.2
[2017-11-20] MEDS: SODIUM CHLORIDE 0.9% 1,000 ML IV SCH (08:32)
[2017-11-20] MEDS: CHOLECALCIFEROL 1,000 UNIT TAB PO SCH (08:36)
[2017-11-20] MEDS: PANTOPRAZOLE 40 MG TABLET PO SCH (08:36)
[2017-11-20 08:52] VITALS: RESP 16
[2017-11-20] MEDS ORDERED: METOPROLOL TARTRATE 25 MG TAB PO SCH (09:00)
[2017-11-20] MEDS ORDERED: ASPIRIN 81 MG PO SCH (09:00)
--- NOTE | 2017-11-20 15:29 | PN ---
PROGRESS NOTE DATE OF SERVICE: 11/19/17. CHIEF COMPLAINT: TIA. HISTORY OF PRESENT ILLNESS: This gentleman is doing fairly well. He remains quite agitated at times and has a sitter. He apparently has a very tight carotid stenosis on one side and the was awaiting a talk to Vascular surgery about possible treatments. PHYSICAL EXAM: He has no neurologic deficits. He is awake and alert, but inappropriate and agitated. IMPRESSION: 1. Transient ischemic attack. 2. Dementia with agitation. 3. Carotid occlusive disease. 4. Await consultation with vascular surgery. MMODL / IJN: [id number] /
--- NOTE | 2017-11-20 17:26 | DS ---
DISCHARGE SUMMARY DATE OF DISCHARGE: 11/20/2017 CHIEF COMPLAINT: TIA. HISTORY OF PRESENT ILLNESS AND PHYSICAL EXAMINATION: Details of this man's history and physical can be found in the initial workup. LABORATORY STUDIES: While he was in the hospital he had laboratory studies, details of which can be found in the laboratory section of his chart. COURSE IN THE HOSPITAL: After admission he was placed on bedrest, started on intravenous fluids and worked up for his TIA. Carotid duplex imaging demonstrated a very tight 90% carotid stenosis on one side. He regained full neurologic function other than his usual dementia. He was referred to Vascular Surgery. Decision was made with the patient's that surgery might be risky and, given his general health-related problems and prognosis, it was probably ill-advised to proceed with surgery. He will be discharged home on his usual activity, diet and medications, and be will be followed up at home. He will be seen by [facility] as well. FINAL DIAGNOSES: 1. Transient ischemic attack. 2. Dementia. 3. Carotid occlusive disease. 4. Coronary artery disease. 5. Atherosclerotic cardiovascular disease. OPERATIONS: None. CONSULTATIONS: Vascular Surgery. He is improved. MMODL / IJN: [id number] /
== END 2017-11-20 13:53 | disposition home health service (06) | DRG 69 ==
LOC: EC 04:27 → 6SEL 07:26
PROVIDERS: ADMIT Family Medicine; ATTEND Family Medicine
DX: G45.9 Transient cerebral ischemic attack, unspecified (principal); I65.23 Occlusion and stenosis of bilateral carotid arteries; R29.710 NIHSS score 10; F03.90 Unspecified dementia, unspecified severity, without behavioral disturbance, psychotic disturbance, mood disturbance, and anxiety; I25.10 Atherosclerotic heart disease of native coronary artery without angina pectoris; J44.9 Chronic obstructive pulmonary disease, unspecified; I10 Essential (primary) hypertension; I44.0 Atrioventricular block, first degree; K21.9 Gastro-esophageal reflux disease without esophagitis; Z95.1 Presence of aortocoronary bypass graft; Z86.73 Personal history of transient ischemic attack (TIA), and cerebral infarction without residual deficits; Z82.49 Family history of ischemic heart disease and other diseases of the circulatory system; Z87.891 Personal history of nicotine dependence; Z79.82 Long term (current) use of aspirin; Z79.899 Other long term (current) drug therapy
CPT/HCPCS: 36415; 70450; 70496; 70498; 71045; 80053; 80061; 81001; 82550; 82553; 84484; 85025; 85610; 85730; 93005; 93306; 94640; 94760; 96374; 99291

== ENCOUNTER 2018-02-19 20:17 | Emergency (ER) | payer MEDICARE, BC ==
--- NOTE | 2018-02-19 21:37 | ED ---
Fall HPI - General Chief Complaint: Fall Stated Complaint: fall Time Seen by Provider: 02/19/18 20:57 Source: family Mode of arrival: ambulatory Limitations: altered mental status (Underlying dementia) - History of Present Illness Initial Comments: This patient is an 87-year-old man to be evaluated after he had a fall down approximately 3-4 stairs tonight. Fall was witnessed by his long-term friend who states that he did not lose consciousness. She states that she was concerned because he has some bruising to his left forehead. The patient has moderately severe dementia and is not able to provide any details related to the fall. He is denying pain to the head or neck. He is denying any other injuries related to the fall. MD Complaint: fall Onset/Timin -: hour(s) Fall From: down stairs (#) (4) When Fall Occurred: 1 hour POTLINE MONITOR Fall Witnessed: yes, by family Place Fall Occurred: home Loss of Consciousness: none Prolonged Down Time?: no Symptoms Prior to Fall: none Location: head - Related Data Home Medications Medication Instructions Recorded Confirmed Albuterol Sulfate [Proventil Hfa] 6.7 gm INHALATION RT-DAILY PRN 12/03/13 Mometasone Furoate [Asmanex] 220 mcg INHALATION RT-BID 12/03/13 02/19/18 Omeprazole [PriLOSEC] 20 mg PO DAILY 12/03/13 02/19/18 Aspirin EC [Ecotrin Low Dose] 81 mg PO DAILY 11/12/15 02/19/18 Cholecalciferol [Vitamin D3] 2,000 units PO DAILY 11/12/15 02/19/18 Metoprolol Tartrate [Lopressor] 25 mg PO DAILY 11/18/17 02/19/18 Ketotifen Fumarate [Zaditor] 1 drop BOTH EYES BID 02/19/18 02/19/18 Allergies Allergy/AdvReac Type Severity Reaction Status Date / Time No Known Allergies Allergy Verified 02/19/18 20:49 Review of Systems ROS Statement: Those systems with pertinent positive or pertinent negative responses have been documented in the HPI. ROS Other: All systems not noted in ROS Statement are negative. Limitations: ROS unobtainable due to patients medical condition (Dementia) Constitutional: Denies: weakness Eyes: Denies: vision change Respiratory: Denies: cough, dyspnea Cardiovascular: Denies: chest pain Gastrointestinal: Denies: abdominal pain, vomiting Musculoskeletal: Denies: back pain Neurological: Reports: confusion (At baseline). 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, 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 History of Any Multi-Drug Resistant Organisms: None Reported Past Surgical History: Appendectomy, Cholecystectomy, Coronary Bypass/CABG Additional Past Surgical History / Comment(s): double bypass approx 8 yrs ago Past Anesthesia/Blood Transfusion Reactions: No Reported Reaction Past Psychological History: No Psychological Hx Reported Smoking Status: Former smoker Past Alcohol Use History: None Reported Past Drug Use History: None Reported - Past Family History Father Family Medical History: Myocardial Infarction ([place]) Additional Family Medical History / Comment(s): father in his 50'a General Exam Limitations: no limitations General appearance: alert, in no apparent distress Head exam: Present: normocephalic, other (Contusion and abrasion to the left frontal area. No palpable deformity. There is only minimal tenderness at the contusion.) Eye exam: Present: PERRL, EOMI, conjunctival injection, periorbital swelling, other (The patient does have some left perioral swelling and some conjunctival injection. He was seen by the supplier relationship director today and started on drops and will have follow-up in 2 days.). Absent: scleral icterus, periorbital tenderness ENT exam: Present: normal oropharynx Neck exam: Present: normal inspection, full ROM. Absent: tenderness Respiratory exam: Present: normal lung sounds bilaterally. Absent: respiratory distress, wheezes, rales, rhonchi, stridor, chest wall tenderness Cardiovascular Exam: Present: regular rate, normal rhythm, normal heart sounds. Absent: systolic murmur, diastolic murmur, rubs, gallop GI/Abdominal exam: Present: soft. Absent: distended, tenderness, guarding, rebound, rigid, mass Extremities exam: Present: normal inspection, full ROM, normal capillary refill. Absent: tenderness, pedal edema Back exam: Present: normal inspection. Absent: CVA tenderness (R), CVA tenderness (L), paraspinal tenderness, vertebral tenderness Neurological exam: Present: alert, CN II-XII intact, normal gait. Absent: oriented X3 (Patient is oriented only to person. This is reportedly his baseline), motor sensory deficit Skin exam: Present: warm, dry, intact, normal color. Absent: rash Course Vital Signs 02/19/18 20:34 Pulse Rate 68 Respiratory 20 Rate Blood Pressure 163/81 O2 Sat by Pulse 95 Oximetry Disposition Clinical Impression: Fall, Head injury Disposition: HOME SELF-CARE Condition: Good Instructions: Fall Prevention for Older Adults (ED), Head Injury (ED) Is patient prescribed a controlled substance at d/c from ED?: No Referrals: Gama Hart MD [Primary Care Provider] - 1-2 days
--- NOTE | 2018-02-19 22:05 | CT ---
EXAMINATION TYPE: CT brain ray wo con DATE OF EXAM: 02/19/2018 COMPARISON: 11/18/[address] scan HISTORY: trauma, fall headache. Neck pain CT DLP: 1136.0 mGycm Automated exposure control for dose reduction was used. TECHNIQUE: CT scan of the head and cervical spine are performed without contrast. FINDINGS: There is moderate diffuse cerebral atrophy. There is enlargement of the ventricles. There is no midline shift. There is no sign of intracranial hemorrhage. The calvarium is intact. There is mucosal thickening in the maxillary sinuses and ethmoid sinuses. There is straightening of the cervical spine. There is degenerative disc space narrowing from C3 to C 7 with spurring of the endplates. Facet joints are intact. The skull base is intact. IMPRESSION: Spondylotic changes in the cervical spine. No fracture. Cerebral atrophy. No acute intracranial abnormality. Brain is unchanged compared to old exam. There is sinusitis improved compared to old exam.
[2018-02-19] MEDS ORDERED: DIPH,PERTUS(ACELL)TETVAC-LF 0.5 ML VIAL IM ONE (22:38)
[2018-02-19 23:36] VITALS: BP 148/82; PULSE 62; RESP 16; TEMP 97
== END 2018-02-19 23:36 | disposition home or self-care (01) ==
LOC: EC 20:17
DX: S09.90XA Unspecified injury of head, initial encounter (principal); F03.90 Unspecified dementia, unspecified severity, without behavioral disturbance, psychotic disturbance, mood disturbance, and anxiety; I25.10 Atherosclerotic heart disease of native coronary artery without angina pectoris; I10 Essential (primary) hypertension; K21.9 Gastro-esophageal reflux disease without esophagitis; J44.9 Chronic obstructive pulmonary disease, unspecified; Z23 Encounter for immunization; Z79.82 Long term (current) use of aspirin; Z79.899 Other long term (current) drug therapy; Z86.73 Personal history of transient ischemic attack (TIA), and cerebral infarction without residual deficits; Z95.1 Presence of aortocoronary bypass graft; Z87.891 Personal history of nicotine dependence; W10.9XXA Fall (on) (from) unspecified stairs and steps, initial encounter
CPT/HCPCS: 70450; 72125; 90471; 90715; 99283

== ENCOUNTER 2018-05-08 11:40 | Inpatient (IN) | payer MEDICARE, BC ==
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
[2018-05-08 13:09] LABS: Basophils % (A) 0 %; Eosinophils % (A) 10 %; HCT 44.1 % (39.0-53.0); HGB 14.8 gm/dL (13.0-17.5); Lymphocytes # (A) 3.2 k/uL (1.0-4.8); Lymphocytes % (A) 33 %; MCH 31.2 pg (25.0-35.0); MCHC 33.4 g/dL (31.0-37.0); MCV 93.3 fL (80.0-100.0); Monocytes # (A) 0.8 k/uL (0-1.0); Monocytes % (A) 8 %; Neutrophils # (A) 4.5 k/uL (1.3-7.7); Neutrophils % (A) 47 %; Platelet Count 233 k/uL (150-450); RBC 4.73 m/uL (4.30-5.90); RDW 13.3 % (11.5-15.5); WBC 9.6 k/uL (3.8-10.6)
[2018-05-08 13:19] LABS: Albumin 4.4 g/dL (3.5-5.0); Magnesium 1.9 mg/dL (1.6-2.3); Total Bilirubin 0.8 mg/dL (0.2-1.3); Total Protein 8.3 g/dL (6.3-8.2)
[2018-05-08 13:32] LABS: Creatine Kinase 40 U/L (55-170)
--- NOTE | 2018-05-08 13:35 | CT ---
EXAMINATION TYPE: CT brain wo con DATE OF EXAM: 05/08/2018 COMPARISON: 02/19/2018 HISTORY: 88-year-old male CONFUSION TECHNIQUE: Examination was done in axial plane without intravenous contrast. Coronal and sagittal r econstructions performed. CT DLP: 1060.4 mGycm Automated exposure control for dose reduction was used. FINDINGS: There is no evidence of acute intracranial hemorrhage, acute ischemic changes, mass, mass-effect, or extra-axial fluid collection. There is no effacement of cerebral sulci or basal subarachnoid cister ns. There is no hydrocephalus. There is no midline shift. Rodríguez-white matter distinction is preserv ed. Moderate to severe mucosal thickening throughout the visualized maxillary sinuses and ethmoid air brandon ls and possible trace air-fluid levels on the frontal sinuses, all increased from prior exam. Redemonstrated moderate generalized supratentorial volume loss with mild ventriculomegaly likely due to central cerebral atrophy. There is ratio is calculated at 0.34 and not significantly changed. Moderate confluent white matter hypodensities in both cervical hemispheres. Atherosclerotic calcifica tions in the bilateral carotid siphons are noted. Mastoid air cells are well pneumatized. IMPRESSION: 1. Moderate generalized atrophy and mild hydrocephalus not significantly changed, likely due to ex va cuo ventricular enlargement from central cerebral atrophy. 2. Also, similar moderate confluent changes of chronic small vessel ischemic disease. No acute intrac ranial abnormality seen. 3. Worsening moderate to severe pansinus disease with suggestion of air-fluid levels in the frontal s inuses that could represent superimposed acute sinusitis.
[2018-05-08 13:45] LABS: Creatine Kinase MB 0.6 ng/mL (0.0-2.4); Troponin I <0.012 ng/mL (0.000-0.034)
--- NOTE | 2018-05-08 14:40 | XR ---
EXAMINATION TYPE: XR chest 2V DATE OF EXAM: 05/08/2018 COMPARISON: 11/18/2017 HISTORY: 88-year-old male with cough TECHNIQUE: AP and lateral views FINDINGS: Heart normal size. Aorta within normal limits. Mild diffuse interstitial prominence is unchanged. Xiang e patchy posterior basilar opacity is noted on the lateral view. No sizable effusion. Median sternoto my wires and post-CABG clips. IMPRESSION: Chronic appearing changes but with patchy posterior basilar opacity on the lateral view. This could r epresent atelectasis or pneumonia.
[2018-05-08] MEDS ORDERED: LORazepam 2 MG/ML INJ IV STA (16:16)
[2018-05-08] MEDS ORDERED: PNEUMONIA PROTOCOL UTILIZED 1 EACH MISC PO PRN (16:19)
[2018-05-08] MEDS ORDERED: PSYLLIUM HUSK 100% 6 GM PACKET PO PRN (16:22)
[2018-05-08] MEDS ORDERED: ALBUTEROL NEBULIZED 2.5 MG/3 ML INHALATION PRN (16:22)
[2018-05-08] MEDS ORDERED: AZITHROMYCIN 500 MG in SODIUM CHLORIDE 0.9% 250 ML IVPB STA (16:24)
[2018-05-08] MEDS ORDERED: SODIUM CHLORIDE 0.9% 1,000 ML IV SCH (16:30)
[2018-05-08] MEDS: FLUTICASONE 110 MCG INHALER INHALATION SCH (19:23)
[2018-05-08] MEDS: MELATONIN 5 MG TABLET PO SCH (19:40)
[2018-05-08 20:15] LABS: Appearance,Urine Clear (Clear); Bilirubin,Urine Negative (Negative); Blood,Urine Negative (Negative); Color,Urine Yellow; Glucose,Urine (UA) Negative (Negative); Ketones,Urine Negative (Negative); Leukocyte Esterase,Urine Negative (Negative); Nitrite,Urine Negative (Negative); PH, Urine 6.5 (5.0-8.0); Protein,Urine Negative (Negative); Specific Gravity,Urine 1.011 (1.001-1.035); Urobilinogen,Urine <2.0 mg/dL (<2.0)
[2018-05-08 20:26] LABS: Amphetamine Screen,Urine Not Detected (NotDetected); Barbiturate Screen,Urine Not Detected (NotDetected); Benzodiazepines Screen,Urine Not Detected (NotDetected); Cocaine Screen,Urine Not Detected (NotDetected); Methadone Screen, Urine Not Detected (NotDetected); Opiate Screen,Urine Not Detected (NotDetected); Oxycodone Screen, Urine Not Detected (NotDetected); Phencyclidine Screen,Urine Not Detected (NotDetected); Tricyclic Antidepressant,Urine Not Detected (NotDetected); Urn Cannabinoid Scrn Not Detected (NotDetected)
[2018-05-08] MEDS ORDERED: HALOPERIDOL LACTATE 5 MG/ML 1 ML VIAL IM PRN (23:52)
[2018-05-09] MEDS: ASPIRIN 81 MG PO SCH (08:37)
[2018-05-09] MEDS: METOPROLOL TARTRATE 25 MG TAB PO SCH (08:37)
[2018-05-09] MEDS: AZITHROMYCIN 500 MG TAB PO SCH (08:37)
[2018-05-09] MEDS: FLUTICASONE 110 MCG INHALER INHALATION SCH ×2 (09:08→20:05)
--- NOTE | 2018-05-09 09:24 | XR ---
EXAMINATION TYPE: XR chest 2V DATE OF EXAM: 05/09/2018 COMPARISON: 05/08/2018 TECHNIQUE: PA and lateral views submitted. HISTORY: Pneumonia FINDINGS: Persistent bilateral consolidation correlate for pleural-based calcification along the left hemidiaph ragm. Postsurgical changes are noted there is mild interstitial prominence. No pneumothorax. Biapical pleural thickening. Epicardial lead noted. Arthropathy of the shoulders. IMPRESSION: 1. Bilateral lower lobe infiltrate and small effusion. Mild central venous congestion in the differen tial diagnosis. 2. Pleural-based calcification correlate for asbestosis related disease.
[2018-05-09] MEDS ORDERED: LORazepam 1 MG TAB PO PRN (13:21)
[2018-05-09] MEDS: risperiDONE 2 MG TAB PO SCH (14:17)
--- NOTE | 2018-05-09 14:34 | PN ---
PROGRESS NOTE DATE OF SERVICE: 05/09/2018 CHIEF COMPLAINT: Pneumonitis and dementia. HISTORY OF PRESENT ILLNESS: This gentleman has been very agitated, difficult to manage. We have had to remove his IV. PHYSICAL EXAM: Breath sounds sound clear and cardiac exam is normal. IMPRESSION: 1. Pneumonitis. 2. Dementia. 3. Delirium. 4. Coronary artery disease. PLAN: I will switch antibiotics to oral route. MMODL / IJN: [id number] /
--- NOTE | 2018-05-09 14:40 | HP ---
HISTORY AND PHYSICAL CHIEF COMPLAINT: Acute mental status changes, dementia and pneumonitis. HISTORY OF PRESENT ILLNESS: This is another admission for this 88-year-old white male with dementia and progressively more aggressive behavior at home. His can no longer manage him. He has a history of coronary artery disease and in the emergency room identified as having a possible lower lobe pneumonitis. REVIEW OF SYSTEMS: Unobtainable. Past medical history, family history and personal and social histories reveal that he has had a history of coronary artery disease and hypertension. Other than that, he has had very few medical problems. Details of his medications can be found in his med rec. He does not smoke. PHYSICAL EXAM: Blood pressure is 142/86 with a pulse of 89, respirations of 32 and he is afebrile. GENERAL: He appeared to be well developed, well nourished, and somewhat agitated. Skin color is normal, skin is warm and dry. Lymph nodes not enlarged. Head, ears, eyes, nose, mouth, and throat were normal. Chest is clear. Cardiac exam is normal sinus rhythm. His abdomen is soft, nontender. Extremities are normal. Neurologically sensory motor and cranial nerves are intact, but he is profoundly demented. He is admitted to the hospital with diagnosis: 1. Pneumonitis. 2. Dementia. 3. Delirium. 4. History of coronary artery disease. PLAN: Stabilize for [facility] placement and treatment of pneumonitis. MMODL / PORSCHEN: [id number] /
[2018-05-09] MEDS: CEPHALEXIN 500 MG CAP PO SCH ×2 (17:17→22:01)
[2018-05-09] MEDS: MELATONIN 5 MG TABLET PO SCH (22:01)
[2018-05-10] MEDS: CEPHALEXIN 500 MG CAP PO SCH ×4 (08:10→22:34)
[2018-05-10] MEDS: ASPIRIN 81 MG PO SCH (08:10)
[2018-05-10] MEDS: risperiDONE 2 MG TAB PO SCH (08:10)
[2018-05-10] MEDS: METOPROLOL TARTRATE 25 MG TAB PO SCH (08:10)
[2018-05-10] MEDS: AZITHROMYCIN 500 MG TAB PO SCH (08:10)
[2018-05-10] MEDS: FLUTICASONE 110 MCG INHALER INHALATION SCH ×2 (09:02→20:35)
[2018-05-10] MEDS: MELATONIN 5 MG TABLET PO SCH (22:34)
[2018-05-11] MEDS: FLUTICASONE 110 MCG INHALER INHALATION SCH ×2 (07:38→19:04)
[2018-05-11] MEDS: METOPROLOL TARTRATE 25 MG TAB PO SCH (08:06)
[2018-05-11] MEDS: CEPHALEXIN 500 MG CAP PO SCH ×4 (08:06→23:02)
[2018-05-11] MEDS: ASPIRIN 81 MG PO SCH (08:06)
[2018-05-11] MEDS: AZITHROMYCIN 500 MG TAB PO SCH (08:06)
--- NOTE | 2018-05-11 15:15 | PN ---
PROGRESS NOTE DATE OF SERVICE: 05/10/2018 CHIEF COMPLAINT: Dementia and CAD. HISTORY OF PRESENT ILLNESS: This gentleman is sedated and very drowsy. PHYSICAL EXAM: Chest is clear. Cardiac exam is normal. IMPRESSION: 1. Dementia. 2. Delirium. 3. Sedation. PLAN: 1. Cut back on sedation. 2. Await fdc placement the first of the week. MMODL / IJN: [id number] /
--- NOTE | 2018-05-11 15:29 | PN ---
PROGRESS NOTE DATE OF SERVICE: 05/11/2018 CHIEF COMPLAINT: Dementia and delirium. HISTORY OF PRESENT ILLNESS: This gentleman is stable and somewhat lethargic. We are waiting for bed which will probably become available on Sunday. PHYSICAL EXAMINATION: Color is good. Chest is clear. Cardiac exam is normal. IMPRESSION: 1. Dementia. 2. Delirium. 3. History of coronary artery disease. PLAN: No change in program. MMODL / IJN: [id number] /
[2018-05-11] MEDS: MELATONIN 5 MG TABLET PO SCH (23:02)
[2018-05-12] MEDS: FLUTICASONE 110 MCG INHALER INHALATION SCH ×2 (07:11→19:30)
[2018-05-12] MEDS: AZITHROMYCIN 500 MG TAB PO SCH (07:52)
[2018-05-12] MEDS: ASPIRIN 81 MG PO SCH (07:52)
[2018-05-12] MEDS: METOPROLOL TARTRATE 25 MG TAB PO SCH (07:52)
[2018-05-12] MEDS: CEPHALEXIN 500 MG CAP PO SCH ×4 (07:52→21:09)
[2018-05-12] MEDS: MELATONIN 5 MG TABLET PO SCH (21:09)
[2018-05-13] MEDS: FLUTICASONE 110 MCG INHALER INHALATION SCH ×2 (07:29→19:27)
[2018-05-13] MEDS: CEPHALEXIN 500 MG CAP PO SCH ×4 (08:55→22:54)
[2018-05-13] MEDS: METOPROLOL TARTRATE 25 MG TAB PO SCH (08:55)
[2018-05-13] MEDS: AZITHROMYCIN 500 MG TAB PO SCH (08:55)
[2018-05-13] MEDS: ASPIRIN 81 MG PO SCH (08:55)
[2018-05-13] MEDS: MELATONIN 5 MG TABLET PO SCH (20:23)
--- NOTE | 2018-05-13 22:23 | PN ---
PROGRESS NOTE DATE OF SERVICE: 05/12/2018 CHIEF COMPLAINT: Dementia. HISTORY OF PRESENT ILLNESS: This gentleman is stable and is still quite lethargic. We will stop Ativan. PHYSICAL EXAMINATION: Chest is clear. Cardiac exam is normal. IMPRESSION: 1. Dementia. 2. Agitation. 3. Delirium. 4. Coronary artery disease. PLAN: Stop Ativan and wait for discharge to long-care nursing. MMODL / IJN: [id number] /
--- NOTE | 2018-05-13 22:26 | PN ---
PROGRESS NOTE CHIEF COMPLAINT: Pneumonitis and dementia. HISTORY OF PRESENT ILLNESS: This gentleman is still a bit lethargic, but starting to become more alert. He has apparently been refused at [facility] and another [facility] was being sought. MMODL / IJN: [id number] /
[2018-05-14] MEDS: FLUTICASONE 110 MCG INHALER INHALATION SCH (07:20)
[2018-05-14 07:49] VITALS: RESP 18
[2018-05-14] MEDS: CEPHALEXIN 500 MG CAP PO SCH ×2 (08:21→12:18)
[2018-05-14] MEDS: ASPIRIN 81 MG PO SCH (08:21)
[2018-05-14] MEDS: METOPROLOL TARTRATE 25 MG TAB PO SCH (08:21)
[2018-05-14] MEDS: AZITHROMYCIN 500 MG TAB PO SCH (08:21)
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
[2018-05-14 16:07] VITALS: BP 146/76; PULSE 64; TEMP 97.6
--- NOTE | 2018-05-14 19:30 | DS ---
DISCHARGE SUMMARY CHIEF COMPLAINT: Dementia and delirium with CAD and hypertension. HISTORY OF PRESENT ILLNESS AND PHYSICAL EXAM: Details of this man's history and physical can be found in the initial workup. LABORATORY STUDIES: While he was the hospital, he had laboratory studies, details of which can be found in the laboratory section of his chart. COURSE IN HOSPITAL: After admission, he was placed on bedrest, started on intravenous fluids. IV had to be removed due to agitation and delirium. He was started on sedation and this was eventually stopped. He was recently turned down from [facility] and on the , a bed was found for him at [facility] and he will be transferred there. FINAL DIAGNOSES: 1. Dementia. 2. Agitation. 3. Delirium. 4. Coronary artery disease. 5. Hypertension. OPERATIONS: None. CONSULTATION: None. He is improved. MMPHUCL / PORSCHEN: [id number] /
--- NOTE | 2018-05-16 20:37 | MISC ---
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 MMODL / IJN: [id number] /
== END 2018-05-14 17:43 | DRG 194 ==
LOC: EC 11:40 → 4MS4W 16:19
PROVIDERS: ADMIT Family Medicine; ATTEND Family Medicine
DX: J18.9 Pneumonia, unspecified organism (principal); F05 Delirium due to known physiological condition; J44.0 Chronic obstructive pulmonary disease with (acute) lower respiratory infection; F01.51 Vascular dementia, unspecified severity, with behavioral disturbance; I10 Essential (primary) hypertension; I25.10 Atherosclerotic heart disease of native coronary artery without angina pectoris; K21.9 Gastro-esophageal reflux disease without esophagitis; Z79.899 Other long term (current) drug therapy; Z82.49 Family history of ischemic heart disease and other diseases of the circulatory system; Z87.891 Personal history of nicotine dependence; Z95.1 Presence of aortocoronary bypass graft; I69.319 Unspecified symptoms and signs involving cognitive functions following cerebral infarction
CPT/HCPCS: 36415; 70450; 71046; 80053; 80306; 81003; 82140; 82150; 82550; 82553; 83690; 83735; 84443; 84484; 85025; 87040; 94640; 96365; 96375; 99285

== ENCOUNTER 2018-09-19 21:29 | Inpatient (IN) | payer MEDICARE, BC ==
--- NOTE | 2018-09-19 22:35 | ED ---
General Adult HPI - General Chief complaint: Shortness of Breath Stated complaint: Diff Breathing Time Seen by Provider: 09/19/18 21:46 Source: EMS Mode of arrival: EMS Limitations: altered mental status - History of Present Illness Initial comments: Dictation was produced using [employer] dictation software. please excuse any grammatical, word or spelling errors. Chief Complaint: 88-year-old male presents with altered mental status and shortness of breath. History of Present Illness: Is an 88-year-old male past medical history of coronary artery disease, dementia, COPD, CVA, memory impairment brought in by EMS for dyspnea. Patient has been having abnormal breathing for the last 3 days. Patient presents to the emergency department with his reports that he has been showing some signs of mental status changes. She reports that he has a baseline demented but able to verbalize words. As of the last 2-3 days he's been having gibberish language. No history of recent falls. Patient unable to provide a history at this time. The ROS documented in this emergency department record has been reviewed and c onfirmed by me. Those systems with pertinent positive or negative responses have been documented in the HPI. All other systems are other negative and/or noncontributory. PHYSICAL EXAM: General Impression: Alert and oriented x3, lethargic, abdominal breathing, cachexia HEENT: Normocephalic atraumatic, extra-ocular movements intact, pupils equal and reactive to light bilaterally, dry mucous membranes, shallow-based ulcers to the soft palate Cardiovascular: Heart regular rate and rhythm, S1&S2 audible, no murmurs, rubs or gallops Chest: Lungs clear to auscultation bilaterally, no rhonchi, no wheeze, no rales Abdomen: Bowel sounds present, abdomen soft, non-tender, non-distended, no organomegaly Musculoskeletal: Pulses present and equal in all extremities, no peripheral edema Motor: no focal deficits noted Neurological: no focal motor or sensory deficits noted Skin: Intact with no visualized rashes ED course: 88-year-old female multiple comorbidities presents with respiratory symptoms and ultimate status. As upon arrival are within acceptable limits.Laboratory evaluation obtained. Leukocytosis of 18.8, rest of CBC is unremarkable. Coag panel is unremarkable. Metabolic panel is negative. Chronic enzymes negative. Chest x-ray is positive for infiltrate in the right lower lobe however read by radiology as normal chest x-ray CT of the brain was obtained due to mental status changes. No acute processes noted. At this point there is no clear source however highly suspicious for pneumonia sepsis. Pending urine studies. Nonetheless, patient given broad-spectrum antibiotics vancomycin and cefepime. There is concern of sepsis. No clinical suspicion of meningitis or encephalitis given that negative Kernig's or Brudzinski sign. No signs of septic arthritis given that all his joints are moved about freely. Abdomen is nontender. Discussed patient case with Dr. Hart who is willing to accept admission. EKG interpretation: Ventricular rate 90, sinus rhythm, MD interval 160, Q 70, QTc 433. No MD prolongation, no QTC prolongation, no ST or T-wave changes noted. . Overall, this EKG is unremarkable - Related Data Home Medications Medication Instructions Recorded Confirmed Aspirin EC [Ecotrin Low Dose] 81 mg PO DAILY 11/12/15 09/19/18 Metoprolol Tartrate [Lopressor] 12.5 mg PO BID 11/18/17 09/19/18 Melatonin 5 mg PO HS 05/08/18 09/19/18 Dextromethorphan Polistirex 30 mg PO Q4H PRN 09/19/18 09/19/18 [Delsym] Magnesium Hydroxide [Milk of 2,400 mg PO DAILY PRN 09/19/18 09/19/18 Magnesia] Allergies Allergy/AdvReac Type Severity Reaction Status Date / Time No Known Allergies Allergy Verified 09/19/18 21:55 Review of Systems ROS Statement: Those systems with pertinent positive or pertinent negative responses have been documented in the HPI. ROS Other: All systems not noted in ROS Statement are negative. 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, falls History of Any Multi-Drug Resistant Organisms: None Reported Past Surgical History: Appendectomy, Cholecystectomy, Coronary Bypass/CABG Additional Past Surgical History / Comment(s): double bypass approx 8 yrs ago Past Anesthesia/Blood Transfusion Reactions: No Reported Reaction Past Psychological History: No Psychological Hx Reported Smoking Status: Former smoker - Past Family History Father Family Medical History: Myocardial Infarction (OR) Additional Family Medical History / Comment(s): father in his 50'a General Exam Limitations: altered mental status Course Vital Signs 09/19/18 21:46 Temperature 98.9 F Pulse Rate 79 Respiratory 18 Rate Blood Pressure 130/78 O2 Sat by Pulse 93 L Oximetry Medical Decision Making - Lab Data Result diagrams: 09/19/18 22:20 09/19/18 22:20 Lab Results 09/19/18 09/19/18 09/19/18 Range/Units 22:20 22:20 22:20 WBC 18.8 H (3.8-10.6) k/uL RBC 4.63 (4.30-5.90) m/uL Hgb 14.4 (13.0-17.5) gm/dL Hct 42.7 (39.0-53.0) % MCV 92.3 (80.0-100.0) fL MCH 31.0 (25.0-35.0) pg MCHC 33.6 (31.0-37.0) g/dL RDW 12.9 (11.5-15.5) % Plt Count 354 (150-450) k/uL Neutrophils % 63 % Lymphocytes % 23 % Monocytes % 10 % Eosinophils % 2 % Basophils % 1 % Neutrophils # 11.9 H (1.3-7.7) k/uL Lymphocytes # 4.2 (1.0-4.8) k/uL Monocytes # 1.8 H (0-1.0) k/uL Eosinophils # 0.4 (0-0.7) k/uL Basophils # 0.1 (0-0.2) k/uL PT (9.0-12.0) sec INR (<1.2) APTT (22.0-30.0) sec Sodium 138 (137-145) mmol/L Potassium 5.0 (3.5-5.1) mmol/L Chloride 104 (98-107) mmol/L Carbon Dioxide 22 (22-30) mmol/L Anion Gap 12 mmol/L BUN 19 (9-20) mg/dL Creatinine 1.22 (0.66-1.25) mg/dL Est GFR (CKD-EPI)AfAm 61 (>60 ml/min/1.73 sqM) Est GFR (CKD-EPI)NonAf 53 (>60 ml/min/1.73 sqM) Glucose 123 H (74-99) mg/dL Calcium 10.1 (8.4-10.2) mg/dL Total Bilirubin 1.0 (0.2-1.3) mg/dL AST 31 (17-59) U/L ALT 12 L (21-72) U/L Alkaline Phosphatase 129 H (38-126) U/L Troponin I (0.000-0.034) ng/mL NT-Pro-B Natriuret Pep 528 pg/mL Total Protein 8.3 H (6.3-8.2) g/dL Albumin 4.2 (3.5-5.0) g/dL 09/19/18 09/19/18 Range/Units 22:20 22:20 WBC (3.8-10.6) k/uL RBC (4.30-5.90) m/uL Hgb (13.0-17.5) gm/dL Hct (39.0-53.0) % MCV (80.0-100.0) fL MCH (25.0-35.0) pg MCHC (31.0-37.0) g/dL RDW (11.5-15.5) % Plt Count (150-450) k/uL Neutrophils % % Lymphocytes % % Monocytes % % Eosinophils % % Basophils % % Neutrophils # (1.3-7.7) k/uL Lymphocytes # (1.0-4.8) k/uL Monocytes # (0-1.0) k/uL Eosinophils # (0-0.7) k/uL Basophils # (0-0.2) k/uL PT 10.6 (9.0-12.0) sec INR 1.0 (<1.2) APTT 24.2 (22.0-30.0) sec Sodium (137-145) mmol/L Potassium (3.5-5.1) mmol/L Chloride (98-107) mmol/L Carbon Dioxide (22-30) mmol/L Anion Gap mmol/L BUN (9-20) mg/dL Creatinine (0.66-1.25) mg/dL Est GFR (CKD-EPI)AfAm (>60 ml/min/1.73 sqM) Est GFR (CKD-EPI)NonAf (>60 ml/min/1.73 sqM) Glucose (74-99) mg/dL Calcium (8.4-10.2) mg/dL Total Bilirubin (0.2-1.3) mg/dL AST (17-59) U/L ALT (21-72) U/L Alkaline Phosphatase (38-126) U/L Troponin I <0.012 (0.000-0.034) ng/mL NT-Pro-B Natriuret Pep pg/mL Total Protein (6.3-8.2) g/dL Albumin (3.5-5.0) g/dL Disposition Clinical Impression: Sepsis Disposition: ADMITTED IP TO THIS HOSP Condition: Fair Referrals: Gama Hart MD [Primary Care Provider] - 1-2 days Decision Time: 00:43
[2018-09-19 22:44] LABS: Basophils # (A) 0.1 k/uL (0-0.2); Basophils % (A) 1 %; Eosinophils # (A) 0.4 k/uL (0-0.7); Eosinophils % (A) 2 %; HCT 42.7 % (39.0-53.0); HGB 14.4 gm/dL (13.0-17.5); Lymphocytes # (A) 4.2 k/uL (1.0-4.8); Lymphocytes % (A) 23 %; MCHC 33.6 g/dL (31.0-37.0); MCV 92.3 fL (80.0-100.0); Mean Platelet Volume 10.2; Monocytes # (A) 1.8 k/uL (0-1.0); Monocytes % (A) 10 %; Neutrophils # (A) 11.9 k/uL (1.3-7.7); Neutrophils % (A) 63 %; Platelet Count 354 k/uL (150-450); RBC 4.63 m/uL (4.30-5.90); RDW 12.9 % (11.5-15.5); WBC 18.8 k/uL (3.8-10.6)
[2018-09-19 22:45] LABS: Albumin 4.2 g/dL (3.5-5.0); Calcium 10.1 mg/dL (8.4-10.2); Total Protein 8.3 g/dL (6.3-8.2)
[2018-09-19 22:46] LABS: Partial Thromboplastin Time 24.2 sec (22.0-30.0); Prothrombin Time 10.6 sec (9.0-12.0)
--- NOTE | 2018-09-19 23:05 | XR ---
EXAM: XR Chest, 2 Views CLINICAL HISTORY: difficulty breathing TECHNIQUE: Frontal and lateral views of the chest. COMPARISON: 05/09/18 FINDINGS: There is some patchy density noted in the right lower lobe the possibility of acute infiltrate cannot be totally excluded. There is chronic interstitial changes bilaterally. No pneumothorax. No cardiomegaly. IMPRESSION: Normal chest x-rays.
--- NOTE | 2018-09-19 23:31 | CT ---
EXAM: CT Head Without Intravenous Contrast CLINICAL HISTORY: Pain TECHNIQUE: Axial computed tomography images of the head/brain without intravenous contrast. CTDI is 51.7 mGy and DLP is 1370.4 mGy-cm. This CT exam was performed using one or more of the following dose reduction techniques: automated exposure control, adjustment of the mA and/or kV according to patient size, and/or use of iterative reconstruction technique. COMPARISON: 05/08/18 FINDINGS: No intracranial hemorrhage, abnormal intra- or extra-axial collections or parenchymal lesions are seen. There are involutional changes with prominence of the sulci, basal cisterns and ventricles. Scattered white matter hypoattenuations are present, likely from small vessel disease. The gamboa-white differentiation is preserved. No evidence of mass effect, midline shift, or edema. The osseous structures are unremarkable. The visualized portions of the paranasal sinuses are clear. IMPRESSION: 1. No acute intracranial process. 2. Involutional changes with small vessel disease. Stable compared to 05/08/18
[2018-09-20] MEDS ORDERED: CEFEPIME 2 GM in SODIUM CHLORIDE 0.9% 100 ML IVPB ONE ×2
[2018-09-20] MEDS ORDERED: VANCOMYCIN 1,000 MG in SODIUM CHLORIDE 0.9% 250 ML IVPB ONE ×2
[2018-09-20] MEDS ORDERED: NALOXONE 0.4 MG/ML 1 ML VIAL IV PRN (00:43)
[2018-09-20] MEDS ORDERED: ACETAMINOPHEN TAB 325 MG TAB PO PRN (00:43)
[2018-09-20] MEDS ORDERED: SODIUM CHLORIDE 0.9% 500 ML 500 ML IV ONE (02:21)
[2018-09-20] MEDS ORDERED: SODIUM CHLORIDE 0.9% 2,000 ML IV ONE (02:21)
[2018-09-20] MEDS ORDERED: SODIUM CHLORIDE 0.9% 500 ML 200 ML IV ONE (02:22)
[2018-09-20 02:54] LABS: Appearance,Urine Cloudy (Clear); Bacteria,Urine Occasional /hpf; Bilirubin,Urine Negative (Negative); Blood,Urine Moderate (Negative); Color,Urine Yellow; Glucose,Urine (UA) Negative (Negative); Ketones,Urine Negative (Negative); Leukocyte Esterase,Urine Large (Negative); Mucus,Urine Few /hpf; Nitrite,Urine Positive (Negative); Protein,Urine 2+ (Negative); RBC,Urine 43 /hpf (0-5); Specific Gravity,Urine 1.028 (1.001-1.035); Squamous Epithelial Cell,Urine 5 /hpf (0-4); Urobilinogen,Urine <2.0 mg/dL (<2.0); WBC,Urine >182 /hpf (0-5)
[2018-09-20] MEDS: SODIUM CHLORIDE 0.9% 1,000 ML IV SCH ×3 (06:21→21:25)
[2018-09-20] MEDS: METOPROLOL TARTRATE 12.5 MG TAB PO SCH ×2 (18:13→21:20)
[2018-09-20] MEDS: ASPIRIN 81 MG PO SCH (18:14)
[2018-09-20] MEDS: LEVOFLOXACIN 250 MG TAB PO SCH (18:14)
--- NOTE | 2018-09-20 20:38 | HP ---
HISTORY AND PHYSICAL CHIEF COMPLAINT: Weakness, hypotension, mental status changes, dehydration. HISTORY OF PRESENT ILLNESS: This gentleman resides at [facility] and was found to have a change in mentation and weakness as well as blood pressure dropping to 91 systolically. He was brought to the emergency room. In the ER he was found to have an elevated white count and urine suggesting infection and chest x-ray suggesting a patchy right lower lobe infiltrate. REVIEW OF SYSTEMS: Review of systems is unobtainable. Past medical history, family history, and personal and social histories are similarly unobtainable because of his dementia. He is NOT ALLERGIC TO ANY MEDICATION. The rest of his history is unremarkable and noncontributory. PHYSICAL EXAMINATION: Blood pressure 134/63, pulse 78, respirations 16 and temperature 98.7. In general he appeared to be dehydrated. Skin was dry. Lymph nodes were not enlarged. Head, ears, eyes, nose, mouth and throat were normal except for dehydration. Neck veins were not distended. The chest demonstrated scattered rales throughout both lung gonzalez. Cardiac exam demonstrated sinus rhythm. The abdomen was soft, nontender. Extremities were normal. Neurologically he was symmetrically intact but very confused, but alert. IMPRESSION: 1. Right lower lobe pneumonitis. 2. Urinary tract infection. 3. Dehydration. 4. Dementia. 5. Coronary artery disease. PLAN: 1. Bed rest. 2. IV fluids. 3. IV antibiotics. LEO / NORBERT: [id number] /
[2018-09-20] MEDS: MELATONIN 5 MG TABLET PO SCH (21:20)
--- NOTE | 2018-09-20 21:29 | PN ---
PROGRESS NOTE DATE OF SERVICE: 09/20/2018 CHIEF COMPLAINT: Dehydration. HISTORY OF PRESENT ILLNESS: This gentleman is alert. He is still very dehydrated. The temperature has been down. Vital signs have been normal. PHYSICAL EXAM: Chest demonstrates persistent rales at the bases posteriorly and cardiac exam is normal. Abdomen is soft, nontender. IMPRESSION: 1. Urinary tract infection. 2. Probable right lower lobe pneumonitis. 3. Dehydration. 4. Hypotension. 5. Dementia. PLAN: Continue with IV fluids and antibiotics. MMODL / IJN: [id number] /
[2018-09-21] MEDS: SODIUM CHLORIDE 0.9% 1,000 ML IV SCH ×2 (05:48→21:20)
[2018-09-21] MEDS: METOPROLOL TARTRATE 12.5 MG TAB PO SCH ×2 (08:59→21:20)
[2018-09-21] MEDS: ASPIRIN 81 MG PO SCH (08:59)
[2018-09-21] MEDS: LEVOFLOXACIN 250 MG TAB PO SCH (16:44)
--- NOTE | 2018-09-21 19:57 | PN ---
PROGRESS NOTE CHIEF COMPLAINT: Mental status changes, dehydration, urinary tract infection and possible pneumonitis. HISTORY OF PRESENT ILLNESS: This gentleman is doing a lot better. He is much more awake and alert. Hydration is improved greatly. He is eating and his activities increasing. PHYSICAL EXAM: Chest is quite clear. Cardiac exam is normal. Abdomen is soft and nontender. Hydration is improved. IMPRESSION: 1. Mental status changes. 2. Dehydration. 3. Urinary tract infection. 4. Pneumonitis. 5. History of coronary artery disease. PLAN: Continue rehydration and probably send back to the longterm on Sunday. MMODL / IJN: [id number] /
[2018-09-21] MEDS: MELATONIN 5 MG TABLET PO SCH (21:20)
[2018-09-22] MEDS: SODIUM CHLORIDE 0.9% 1,000 ML IV SCH ×2 (04:14→11:17)
[2018-09-22] MEDS: METOPROLOL TARTRATE 12.5 MG TAB PO SCH ×2 (10:01→20:30)
[2018-09-22] MEDS: ASPIRIN 81 MG PO SCH (10:01)
[2018-09-22] MEDS: LEVOFLOXACIN 250 MG TAB PO SCH (14:59)
[2018-09-22 18:55] LABS: Basophils % (A) 0 %; Eosinophils # (A) 0.6 k/uL (0-0.7); Eosinophils % (A) 8 %; HCT 39.9 % (39.0-53.0); HGB 13.1 gm/dL (13.0-17.5); Lymphocytes # (A) 2.3 k/uL (1.0-4.8); Lymphocytes % (A) 29 %; MCH 30.2 pg (25.0-35.0); MCHC 32.9 g/dL (31.0-37.0); MCV 91.8 fL (80.0-100.0); Mean Platelet Volume 8.6; Monocytes # (A) 0.8 k/uL (0-1.0); Monocytes % (A) 10 %; Neutrophils # (A) 3.9 k/uL (1.3-7.7); Neutrophils % (A) 49 %; Platelet Count 337 k/uL (150-450); RBC 4.35 m/uL (4.30-5.90); RDW 12.3 % (11.5-15.5); WBC 7.9 k/uL (3.8-10.6)
[2018-09-22 19:15] LABS: Albumin 3.3 g/dL (3.5-5.0); Calcium 9.2 mg/dL (8.4-10.2); Potassium 4.3 mmol/L (3.5-5.1); Total Bilirubin 0.4 mg/dL (0.2-1.3); Total Protein 6.8 g/dL (6.3-8.2)
--- NOTE | 2018-09-22 20:17 | PN ---
PROGRESS NOTE CHIEF COMPLAINT: Urinary tract infection and pneumonia. HISTORY OF PRESENT ILLNESS: This gentleman is doing fairly well. When he is awake, he is alert and he eats well and he is well hydrated. We will probably be able to send him back to the [facility] tomorrow. PHYSICAL EXAM: CHEST: Clear now. There are no rales or rhonchi. Cardiac exam is normal. Abdomen is soft, nontender. IMPRESSION: 1. Urinary tract infection. 2. Dehydration. 3. Possible pneumonitis. 4. Dementia. 5. Coronary artery disease. PLAN: Probably return to the [facility] tomorrow. MMODL / IJN: [id number] /
[2018-09-22] MEDS: MELATONIN 5 MG TABLET PO SCH (20:30)
[2018-09-23] MEDS: SODIUM CHLORIDE 0.9% 1,000 ML IV SCH ×2 (07:51→08:20)
[2018-09-23 07:54] VITALS: RESP 16; TEMP 97.5
[2018-09-23] MEDS: METOPROLOL TARTRATE 12.5 MG TAB PO SCH (08:20)
[2018-09-23] MEDS: ASPIRIN 81 MG PO SCH (08:20)
--- NOTE | 2018-09-23 12:43 | DS ---
DISCHARGE SUMMARY CHIEF COMPLAINT: Syncope, dehydration and urinary tract infection. HISTORY OF PRESENT ILLNESS AND PHYSICAL EXAM: Details of this man's history and physical can be found in the initial workup. LABORATORY STUDIES: While he was in a hospital he had laboratory studies, details of which can be found in the laboratory section of his chart. COURSE IN HOSPITAL: After admission, he was placed on bedrest, started intravenous fluids and IV antibiotics. He is rehydrated and he became much more awake and alert. It was felt that he may have a right-sided pneumonitis, but it was believed more likely that the urine was the source of his infection. He is doing well. It was felt that he could go back to the assisted on the . He will go there on Levaquin 250 mg once a day. FINAL DIAGNOSES: 1. Syncope and weakness due to urinary tract infection. 2. Cystitis. 3. Dehydration. 4. Possible right lower lobe pneumonitis. 5. Dementia. OPERATIONS: None. CONSULTATION: None. He is improved. MMODL / IJN: [id number] /
[2018-09-23 13:36] VITALS: BP 152/78; PULSE 68
--- NOTE | 2018-09-25 01:34 | CDI ---
Documentation Clarification Form Date: 09/25/18 From: Keron Powell Phone: call to [phone] Admit Date: 09/20/2018 12:43:00 AM Patient Name: Mauro Simmons Visit Number: [id number] Discharge Date: 09/23/2018 2:05:00 PM ATTENTION: The Clinical Documentation Specialists (CDI) and [facility] Coding Staff appreciate your assistance in clarifying documentation. Please respond to the clarification below the line at the bottom and electronically sign. The CDI & [facility] Coding staff will review the response and follow-up if needed. Please note: Queries are made part of the Legal Health Record. If you have any questions, please contact the author of this message via ITS. Dr. Gama Hart The patient presented with the following SOB, altered mental status. EMS. A/Ox3, lethargic, abd breathing, cachexia, dry mucous membranes, ulcers to soft palate. Highly suspicious for sepsis w/pneumonia, Only In ED Clinical impression mentioned "Sepsis" documenetd by Dr. Dakota Thomas DO In ED documented Clinical indicators are symptoms : AMS Pulse Rate 79 Respiratory rate: 18 WBC: 18.8 Temperature: 98.9 F Infectious codnitions: UTI & Pneumonia treatment: Broad-spectrum Antibiotics vancomycin and cefepime. In your professional opinion, please clarify if these findings signify one of the following conditions, whether the condition is POA, and cause, if known: Condition Sepsis Sepsis with Pneumonia & UTI Sepsis Ruled out Unable to determine MTDD
--- NOTE | 2018-09-26 13:03 | MISC ---
MISCELLANOUS REPORT QUERY Sepsis is ruled out. MMODL / IJN: [id number] /
--- NOTE | 2018-09-27 00:20 | CDI ---
Documentation Clarification Form Date: 09/25/2018 From: Keron Powell Phone: call to [phone] Admit Date: 09/20/2018 12:43:00 AM Patient Name: Mauro Simmons Visit Number: [id number] Discharge Date: 09/23/2018 2:05:00 PM ATTENTION: The Clinical Documentation Specialists (CDI) and [facility] Coding Staff appreciate your assistance in clarifying documentation. Please respond to the clarification below the line at the bottom and electronically sign. The CDI & [facility] Coding staff will review the response and follow-up if needed. Please note: Queries are made part of the Legal Health Record. If you have any questions, please contact the author of this message via ITS. Dr. Gama Hart, The patient presented with the following SOB, altered mental status. EMS. A/Ox3, lethargic, abd breathing, cachexia, dry mucous membranes, ulcers to soft palate. Highly suspicious for sepsis w/pneumonia, Only In ED Clinical impression mentioned "Sepsis" documenetd by Dr. Dakota Thomas DO In ED documented Clinical indicators are symptoms : AMS Pulse Rate 79 Respiratory rate: 18 WBC: 18.8 Temperature: 98.9 F Infectious codnitions: UTI Pneumonia treatment: Broad-spectrum Antibiotics vancomycin and cefepime. In your professional opinion, please clarify if these findings signify one of the following conditions, whether the condition is POA, and cause, if known: Condition Sepsis Sepsis with Pneumonia & UTI Sepsis Ruled out Unable to determine MTDD
--- NOTE | 2018-09-27 10:45 | MISC ---
MISCELLANOUS REPORT QUERY: Sepsis ruled out. MMODL / IJN: [id number] /
== END 2018-09-23 14:05 | DRG 689 ==
LOC: EC 21:29 → 3SCARD 09-20 00:43
PROVIDERS: ADMIT Family Medicine; ATTEND Family Medicine
DX: N39.0 Urinary tract infection, site not specified (principal); J18.9 Pneumonia, unspecified organism; J44.0 Chronic obstructive pulmonary disease with (acute) lower respiratory infection; I25.10 Atherosclerotic heart disease of native coronary artery without angina pectoris; F03.90 Unspecified dementia, unspecified severity, without behavioral disturbance, psychotic disturbance, mood disturbance, and anxiety; E86.0 Dehydration; I10 Essential (primary) hypertension; I95.9 Hypotension, unspecified; K21.9 Gastro-esophageal reflux disease without esophagitis; Z79.82 Long term (current) use of aspirin; Z82.49 Family history of ischemic heart disease and other diseases of the circulatory system; Z86.73 Personal history of transient ischemic attack (TIA), and cerebral infarction without residual deficits; Z87.891 Personal history of nicotine dependence; Z90.49 Acquired absence of other specified parts of digestive tract; Z95.1 Presence of aortocoronary bypass graft
CPT/HCPCS: 36415; 51701; 70450; 71046; 80053; 81001; 83605; 83880; 84484; 85025; 85610; 85730; 87040; 87081; 87086; 87430; 87502; 93005; 96365; 96366; 96368; 99285

== ENCOUNTER 2018-10-11 16:06 | Inpatient (IN) | payer MEDICARE, BC, OTHER ==
[2018-10-11] MEDS ORDERED: ACETAMINOPHEN TAB 500 MG TAB PO STA (16:39)
[2018-10-11] MEDS ORDERED: VANCOMYCIN IV PER PHARMACY 1 EACH MISC MISCELLANE PRN (16:56)
[2018-10-11] MEDS ORDERED: PIPERACILLIN-TAZOBACTAM 3.375 GM in SODIUM CHLORIDE 0.9% 100 ML IVPB STA (16:56)
--- NOTE | 2018-10-11 16:57 | ED ---
General Adult HPI - General Chief complaint: Fever Stated complaint: Hypertension, Altered Time Seen by Provider: 10/11/18 16:29 Source: family, EMS, RN notes reviewed, old records reviewed Mode of arrival: EMS Limitations: altered mental status - History of Present Illness Initial comments: 88-year-old male with advanced dementia presenting with dyspnea and fever. Patient unable to contribute to the history. Review of the medical record does indicate the patient was recently admitted with pneumonia, UTI, and dehydration. There is no history of vomiting or diarrhea. Patient did have mild cough. He has not been eating or drinking well recently. - Related Data Home Medications Medication Instructions Recorded Confirmed Aspirin EC [Ecotrin Low Dose] 81 mg PO DAILY 11/12/15 10/11/18 Metoprolol Tartrate [Lopressor] 12.5 mg PO BID 11/18/17 10/11/18 Melatonin 5 mg PO HS 05/08/18 10/11/18 Dextromethorphan Polistirex 30 mg PO Q4H PRN 09/19/18 10/11/18 [Delsym] Magnesium Hydroxide [Milk of 2,400 mg PO DAILY PRN 09/19/18 10/11/18 Magnesia] Allergies Allergy/AdvReac Type Severity Reaction Status Date / Time No Known Allergies Allergy Verified 10/11/18 17:01 Review of Systems ROS Statement: Those systems with pertinent positive or pertinent negative responses have been documented in the HPI. 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, [place] History of Any Multi-Drug Resistant Organisms: None Reported Past Surgical History: Appendectomy, Cholecystectomy, Coronary Bypass/CABG Additional Past Surgical History / Comment(s): double bypass approx 8 yrs ago Past Anesthesia/Blood Transfusion Reactions: No Reported Reaction Past Psychological History: No Psychological Hx Reported Smoking Status: Former smoker Past Alcohol Use History: None Reported Past Drug Use History: None Reported - Past Family History Father Family Medical History: Myocardial Infarction ([place]) Additional Family Medical History / Comment(s): father in his 50'a General Exam Limitations: altered mental status General appearance: lethargic, in distress Head exam: Present: atraumatic, normocephalic Eye exam: Present: normal appearance, PERRL ENT exam: Present: mucous membranes dry Respiratory exam: Present: respiratory distress, rhonchi, decreased breath sounds Cardiovascular Exam: Present: normal rhythm, tachycardia GI/Abdominal exam: Present: soft. Absent: distended, tenderness, guarding, rebound Rectal exam: Present: other (No decubitus ulcer) Extremities exam: Present: normal inspection. Absent: pedal edema Skin exam: Present: warm, dry, intact. Absent: cyanosis, diaphoretic Course Vital Signs 10/11/18 10/11/18 10/11/18 16:18 17:00 17:30 Temperature 102.7 F H Pulse Rate 105 H 101 H 102 H Respiratory 20 20 22 Rate Blood Pressure 191/98 176/93 165/88 O2 Sat by Pulse 94 L 95 95 Oximetry 10/11/18 10/11/18 10/11/18 18:00 18:30 19:05 Temperature Pulse Rate 101 H 107 H 101 H Respiratory 19 20 24 Rate Blood Pressure 158/82 160/86 81/51 O2 Sat by Pulse 96 96 98 Oximetry EKG Findings - EKG Comments: EKG Findings:: EKG: Sinus rhythm with first-degree AV block, rate of 99, DC interval 212, QRS duration 88, QTC 428, no ST segment elevation Medical Decision Making - Medical Decision Making 88-year-old male presenting with fever, lethargy, history of dementia. Patient is tachycardic, hypotensive and febrile on initial evaluation. He is foul- smelling urine. Urinalysis does reveal greater than 182 red cells, bacteria, and 72 white cells. He has leukocytosis of 23,000. Lactic 3.6. He receives 2.5 L normal saline bolus with improvement in blood pressure and heart rate. He started on broad-spectrum antibiotics including Zosyn and vancomycin. Chest x- ray does show concern for some increased atelectasis, maybe early pneumonia. He's admitted for further evaluation and treatment. Case is discussed with Dr. Hart who will admit. - Lab Data Result diagrams: 10/11/18 16:35 10/11/18 16:35 Lab Results 10/11/18 10/11/18 10/11/18 Range/Units 16:35 16:35 16:35 WBC 22.6 H (3.8-10.6) k/uL RBC 4.57 (4.30-5.90) m/uL Hgb 13.7 (13.0-17.5) gm/dL Hct 41.6 (39.0-53.0) % MCV 90.9 (80.0-100.0) fL MCH 29.9 (25.0-35.0) pg MCHC 32.9 (31.0-37.0) g/dL RDW 14.0 (11.5-15.5) % Plt Count 295 (150-450) k/uL Neutrophils % 87 % Lymphocytes % 4 % Monocytes % 7 % Eosinophils % 1 % Basophils % 0 % Neutrophils # 19.7 H (1.3-7.7) k/uL Lymphocytes # 0.9 L (1.0-4.8) k/uL Monocytes # 1.5 H (0-1.0) k/uL Eosinophils # 0.2 (0-0.7) k/uL Basophils # 0.1 (0-0.2) k/uL PT (9.0-12.0) sec INR (<1.2) APTT (22.0-30.0) sec Sodium 135 L (137-145) mmol/L Potassium 5.1 (3.5-5.1) mmol/L Chloride 97 L (98-107) mmol/L Carbon Dioxide 23 (22-30) mmol/L Anion Gap 15 mmol/L BUN 19 (9-20) mg/dL Creatinine 1.19 (0.66-1.25) mg/dL Est GFR (CKD-EPI)AfAm 63 (>60 ml/min/1.73 sqM) Est GFR (CKD-EPI)NonAf 54 (>60 ml/min/1.73 sqM) Glucose 174 H (74-99) mg/dL Plasma Lactic Acid Keith 3.6 H* (0.7-2.0) mmol/L Calcium 9.7 (8.4-10.2) mg/dL Total Bilirubin 1.1 (0.2-1.3) mg/dL AST 34 (17-59) U/L ALT 9 L (21-72) U/L Alkaline Phosphatase 113 (38-126) U/L Total Protein 8.6 H (6.3-8.2) g/dL Albumin 4.4 (3.5-5.0) g/dL Urine Color Urine Appearance (Clear) Urine pH (5.0-8.0) Ur Specific [place] (1.001-1.035) Urine Protein (Negative) Urine Glucose (UA) (Negative) Urine Ketones (Negative) Urine Blood (Negative) Urine Nitrite (Negative) Urine Bilirubin (Negative) Urine Urobilinogen (<2.0) mg/dL Ur Leukocyte Esterase (Negative) Urine RBC (0-5) /hpf Urine WBC (0-5) /hpf Urine WBC Clumps (None) /hpf Ur Squamous Epith Cells (0-4) /hpf Urine Bacteria (None) /hpf Urine Mucus (None) /hpf 10/11/18 10/11/18 Range/Units 16:35 16:35 WBC (3.8-10.6) k/uL RBC (4.30-5.90) m/uL Hgb (13.0-17.5) gm/dL Hct (39.0-53.0) % MCV (80.0-100.0) fL MCH (25.0-35.0) pg MCHC (31.0-37.0) g/dL RDW (11.5-15.5) % Plt Count (150-450) k/uL Neutrophils % % Lymphocytes % % Monocytes % % Eosinophils % % Basophils % % Neutrophils # (1.3-7.7) k/uL Lymphocytes # (1.0-4.8) k/uL Monocytes # (0-1.0) k/uL Eosinophils # (0-0.7) k/uL Basophils # (0-0.2) k/uL PT 10.4 (9.0-12.0) sec INR 1.0 (<1.2) APTT 22.1 (22.0-30.0) sec Sodium (137-145) mmol/L Potassium (3.5-5.1) mmol/L Chloride (98-107) mmol/L Carbon Dioxide (22-30) mmol/L Anion Gap mmol/L BUN (9-20) mg/dL Creatinine (0.66-1.25) mg/dL Est GFR (CKD-EPI)AfAm (>60 ml/min/1.73 sqM) Est GFR (CKD-EPI)NonAf (>60 ml/min/1.73 sqM) Glucose (74-99) mg/dL Plasma Lactic Acid Keith (0.7-2.0) mmol/L Calcium (8.4-10.2) mg/dL Total Bilirubin (0.2-1.3) mg/dL AST (17-59) U/L ALT (21-72) U/L Alkaline Phosphatase (38-126) U/L Total Protein (6.3-8.2) g/dL Albumin (3.5-5.0) g/dL Urine Color Yellow Urine Appearance Cloudy (Clear) Urine pH 8.0 (5.0-8.0) Ur Specific [place] 1.018 (1.001-1.035) Urine Protein 1+ H (Negative) Urine Glucose (UA) 3+ H (Negative) Urine Ketones Negative (Negative) Urine Blood Moderate H (Negative) Urine Nitrite Positive (Negative) Urine Bilirubin Negative (Negative) Urine Urobilinogen <2.0 (<2.0) mg/dL Ur Leukocyte Esterase Large H (Negative) Urine RBC >182 H (0-5) /hpf Urine WBC 72 H (0-5) /hpf Urine WBC Clumps Few H (None) /hpf Ur Squamous Epith Cells 2 (0-4) /hpf Urine Bacteria Few H (None) /hpf Urine Mucus Rare H (None) /hpf Critical Care Time Critical Care Time: Yes Total Critical Care Time: 35 Disposition Clinical Impression: Sepsis, Dementia, Pneumonia, UTI (urinary tract infection) Disposition: ADMITTED IP TO THIS [facility] Condition: Serious Is patient prescribed a controlled substance at d/c from ED?: No Referrals: Gama Hart MD [Primary Care Provider] - 1-2 days Decision to Admit Reason: Admit from EC Decision Date: 10/11/18 Decision Time: 19:09
[2018-10-11] MEDS ORDERED: VANCOMYCIN 1,750 MG in SODIUM CHLORIDE 0.9% 500 ML 500 ML IVPB STA (17:05)
[2018-10-11 17:07] LABS: Albumin 4.4 g/dL (3.5-5.0); Calcium 9.7 mg/dL (8.4-10.2); Potassium 5.1 mmol/L (3.5-5.1); Total Bilirubin 1.1 mg/dL (0.2-1.3); Total Protein 8.6 g/dL (6.3-8.2)
[2018-10-11 17:11] LABS: Appearance,Urine Cloudy (Clear); Bacteria,Urine Few /hpf; Bilirubin,Urine Negative (Negative); Blood,Urine Moderate (Negative); Color,Urine Yellow; Glucose,Urine (UA) 3+ (Negative); Ketones,Urine Negative (Negative); Leukocyte Esterase,Urine Large (Negative); Mucus,Urine Rare /hpf; Nitrite,Urine Positive (Negative); Protein,Urine 1+ (Negative); RBC,Urine >182 /hpf (0-5); Specific Gravity,Urine 1.018 (1.001-1.035); Squamous Epithelial Cell,Urine 2 /hpf (0-4); Urobilinogen,Urine <2.0 mg/dL (<2.0); WBC,Urine 72 /hpf (0-5)
[2018-10-11] MEDS: SODIUM CHLORIDE 0.9% 500 ML 500 ML IV SCH ×2 (17:12→17:13)
[2018-10-11 17:13] LABS: Partial Thromboplastin Time 22.1 sec (22.0-30.0); Prothrombin Time 10.4 sec (9.0-12.0)
[2018-10-11 17:24] LABS: Basophils # (A) 0.1 k/uL (0-0.2); Basophils % (A) 0 %; Eosinophils # (A) 0.2 k/uL (0-0.7); Eosinophils % (A) 1 %; HCT 41.6 % (39.0-53.0); HGB 13.7 gm/dL (13.0-17.5); Lymphocytes # (A) 0.9 k/uL (1.0-4.8); Lymphocytes % (A) 4 %; MCH 29.9 pg (25.0-35.0); MCHC 32.9 g/dL (31.0-37.0); MCV 90.9 fL (80.0-100.0); Mean Platelet Volume 10.3; Monocytes # (A) 1.5 k/uL (0-1.0); Monocytes % (A) 7 %; Neutrophils # (A) 19.7 k/uL (1.3-7.7); Neutrophils % (A) 87 %; Platelet Count 295 k/uL (150-450); RBC 4.57 m/uL (4.30-5.90); WBC 22.6 k/uL (3.8-10.6)
--- NOTE | 2018-10-11 18:45 | XR ---
EXAMINATION TYPE: XR chest 2V DATE OF EXAM: 10/11/2018 COMPARISON: 09/19/2018 HISTORY: Fever TECHNIQUE: Frontal and lateral views of the chest are obtained. FINDINGS: There is no heart failure. There is coarsening of the lung markings. There is poor inspira tion. There is some linear density at the lung bases. Thoracic aorta is atheromatous. There are louie al wires. There is no definite pleural effusion. IMPRESSION: Mild pulmonary fibrosis. Inspiration is decreased compared to last exam. No gross heart failure. There is slight increased atelectasis at the lung bases compared to old exam.
[2018-10-11] MEDS ORDERED: SODIUM CHLORIDE 0.9% 1,000 ML IV ONE (19:03)
[2018-10-11] MEDS ORDERED: NALOXONE 0.4 MG/ML 1 ML VIAL IV PRN (19:04)
[2018-10-11] MEDS ORDERED: SODIUM CHLORIDE 0.9% 500 ML 500 ML IV ONE (19:08)
[2018-10-11] MEDS: SODIUM CHLORIDE 0.9% 1,000 ML IV SCH (19:51)
[2018-10-12] MEDS: PIPERACILLIN-TAZOBACTAM 3.375 GM in SODIUM CHLORIDE 0.9% 100 ML IVPB SCH ×4 (00:07→23:30)
[2018-10-12] MEDS ORDERED: VANCOMYCIN 1,750 MG in SODIUM CHLORIDE 0.9% 500 ML 500 ML IVPB ONE (06:45)
[2018-10-12 06:52] LABS: Basophils # (A) 0.1 k/uL (0-0.2); Basophils % (A) 0 %; Eosinophils # (A) 0.1 k/uL (0-0.7); Eosinophils % (A) 0 %; HCT 33.9 % (39.0-53.0); HGB 11.2 gm/dL (13.0-17.5); Lymphocytes # (A) 1.8 k/uL (1.0-4.8); Lymphocytes % (A) 6 %; MCH 30.2 pg (25.0-35.0); MCHC 32.9 g/dL (31.0-37.0); MCV 91.7 fL (80.0-100.0); Monocytes # (A) 2.1 k/uL (0-1.0); Monocytes % (A) 7 %; Neutrophils # (A) 24.4 k/uL (1.3-7.7); Neutrophils % (A) 85 %; Platelet Count 245 k/uL (150-450); RBC 3.69 m/uL (4.30-5.90); RDW 13.9 % (11.5-15.5); WBC 28.7 k/uL (3.8-10.6)
[2018-10-12 07:04] LABS: Calcium 8.7 mg/dL (8.4-10.2); Total Bilirubin 1.3 mg/dL (0.2-1.3); Total Protein 6.1 g/dL (6.3-8.2)
[2018-10-12] MEDS: SODIUM CHLORIDE 0.9% 1,000 ML IV SCH (07:25)
[2018-10-12 10:44] VITALS: BMI 18.8
[2018-10-12] MEDS: ACETAMINOPHEN TAB 325 MG TAB PO PRN (14:06)
--- NOTE | 2018-10-12 15:29 | US ---
EXAMINATION TYPE: US kidneys/renal and bladder DATE OF EXAM: 10/12/2018 COMPARISON: US, CT CLINICAL HISTORY: RECURRENT uti. UTI EXAM MEASUREMENTS: Right Kidney: 9.7 x 4.6 x 4.7 cm Left Kidney: 10.4 x 4.9 x 4.7 cm Left kidney imaged 1st due to pt's body position Right Kidney: Possible cortical thinning/ very difficult to visualize right kidney due to pt's positi on and uncooperative pt, moving, grabbing tech's arm Left Kidney: wnl Bladder: wnl Bilateral Jets seen: No Incidental granulomatous spleen IMPRESSION: No evidence of renal mass or obstruction. Normal appearing urinary bladder.
--- NOTE | 2018-10-12 16:22 | PN ---
PROGRESS NOTE DATE OF SERVICE: 10/12/2018 CHIEF COMPLAINT: Urinary tract infection with fever and dehydration. HISTORY OF PRESENT ILLNESS: This gentleman's remains a little bit more lethargic than normal. He is still somewhat dehydrated. Head, ears, eyes, nose, mouth, and throat are normal other than evidence of his dryness. Chest is clear. Cardiac exam is normal. Abdomen is soft and nontender without any masses. IMPRESSION: 1. Cystitis. 2. Dehydration. 3. Dementia. 4. Coronary artery disease. PLAN: Continue with IV fluids and antibiotics. MMODL / IJN: [id number] /
--- NOTE | 2018-10-12 16:22 | HP ---
HISTORY AND PHYSICAL CHIEF COMPLAINT: Hyperpyrexia. HISTORY OF PRESENT ILLNESS: This is another recent admission for this 88-year-old demented white male from a shelter. He was just in the hospital recently with urinary tract infection. He suddenly spiked a temp up to over 103 along with elevation of his blood pressure. He was sent to the emergency room where he was thought to have urinary tract infection and was admitted. REVIEW OF SYSTEMS: Unobtainable. Past medical history, family history, personal and social histories are all otherwise unobtainable or unchanged from his recent visit to the hospital. He is not allergic to any medication. PHYSICAL EXAMINATION: Temperature when he came in was 103.5 and he is now afebrile. Blood pressure 123/61 with a pulse of 85 and regular, respirations of 35. In general, he appears to be slightly dehydrated and pale. Head, ears, eyes, nose, mouth, and throat are normal. Mucous membranes are dry, however. Neck veins are not distended. Chest sounds clear to auscultation. Cardiac exam demonstrates sinus tachycardia. Abdomen is soft. He is not tender over the bladder. Extremities are normal. Neurologically, other than being demented, he is intact. He is somewhat lethargic. He is admitted to the hospital with diagnoses: 1. Urinary tract infection with hyperpyrexia. 2. Coronary artery disease. 3. Dementia. 4. Dehydration. PLAN: 1. Bed rest. 2. IV fluids. 3. IV antibiotics. LEO / NORBERT: [id number] /
[2018-10-12] MEDS: METOPROLOL TARTRATE 12.5 MG TAB PO SCH (20:39)
[2018-10-12] MEDS ORDERED: VANCOMYCIN 1,500 MG in SODIUM CHLORIDE 0.9% 250 ML IVPB SCH (22:00)
--- NOTE | 2018-10-12 23:01 | P.CONS ---
History of Present Illness - Reason for Consult Consult date: 10/12/18 Fever Requesting physician: Gama Hart - Chief Complaint Fever and shortness of breath x 1 day - History of Present Illness Patient is a 88-year-old male who was brought into the ER at [facility] ER last night with chief complaints of fever and increasing shortness of breath the patient's symptom has been going on for a day before the patient was brought into the hospital is no clear history of any nausea and vomiting patient to have underlying dementia and unable to put any history most information has been obtained by the family at the bedside and did mention the patient seemed to have some pain while urinating the last day or 2 but no history of any hematuria suprapubic or flank pain no nausea no vomiting or any diarrhea that has some shortness of breath and no significant cough or sputum production or choking on the phone with the symptoms the patient has been evaluated by the ER physician on arrival to the patient did have a temperature of 102F did have elevated white count 22,000 chest x-ray with poor inspiratory effort and increased lung markings patient had did have significant positive UA patient has been started on vancomycin and Zosyn and admitted to the hospital infectious disease was consulted for further recommendation for antibiotic Review of Systems Positive points has been mentioned in HPI complete review could not be obtained because of underlying dementia 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 Smoking Status: Former smoker Past Alcohol Use History: None Reported Additional Past Alcohol Use History / Comment(s): started smoking age 17(1948) and quit 1989, sig other does'nt know how much he used to smoked. Past Drug Use History: None Reported - Past Family History Father Family Medical History: Myocardial Infarction ([place]) Additional Family Medical History / Comment(s): father in his 50s Medications and Allergies Home Medications Medication Instructions Recorded Confirmed Type Aspirin EC [Ecotrin Low Dose] 81 mg PO DAILY 11/12/15 10/11/18 History Metoprolol Tartrate [Lopressor] 12.5 mg PO BID 11/18/17 10/11/18 History Melatonin 5 mg PO HS 05/08/18 10/11/18 History Dextromethorphan Polistirex 30 mg PO Q4H PRN 09/19/18 10/11/18 History [Delsym] Magnesium Hydroxide [Milk of 2,400 mg PO DAILY PRN 09/19/18 10/11/18 History Magnesia] Allergies Allergy/AdvReac Type Severity Reaction Status Date / Time No Known Allergies Allergy Verified 10/11/18 17:01 Physical Exam Vitals: Vital Signs Temp Pulse Pulse Resp BP BP BP 10/12/18 07:00 98.7 F 85 16 123/61 10/12/18 04:25 98.9 F 10/12/18 02:05 99.4 F 90 20 135/61 10/11/18 21:30 98.7 F 83 22 103/60 10/11/18 20:26 120/80 10/11/18 19:49 98.4 F 10/11/18 19:35 86 21 106/45 10/11/18 19:05 101 H 24 81/51 10/11/18 18:30 107 H 20 160/86 10/11/18 18:00 101 H 19 158/82 10/11/18 17:30 102 H 22 165/88 10/11/18 17:00 101 H 20 176/93 10/11/18 16:18 102.7 F H 105 H 20 191/98 Pulse Ox 10/12/18 07:00 96 10/12/18 04:25 10/12/18 02:05 96 10/11/18 21:30 95 10/11/18 20:26 10/11/18 19:49 10/11/18 19:35 99 10/11/18 19:05 98 10/11/18 18:30 96 10/11/18 18:00 96 10/11/18 17:30 95 10/11/18 17:00 95 10/11/18 16:18 94 L Intake and Output 10/11/18 10/12/18 10/12/18 22:59 06:59 14:59 Intake Total 350 901 Output Total 2 Balance 350 899 Intake: Intake, IV Titration 150 700 Amount Piperacillin-Tazobactam 3 100 .375 gm In Sodium Chloride 0.9% 100 ml @ 25 mls/hr IVPB Q8HR DAILY Rx# :[id number] Sodium Chloride 0.9% 1, 150 600 000 ml @ 75 mls/hr IV . [id number] DAILY Rx#:[id number] Oral 200 201 Output: Urine/Stool Mix 2 Other: Voiding Method Diaper Diaper Incontinent Incontinent # Voids 1 2 # Bowel Movements 1 1 Weight 79.379 kg 59.5 kg GENERAL DESCRIPTION: Elderly male lying in bed, no distress. No tachypnea or accessory muscle of respiration use. HEENT: Shows Pallor , no scleral icterus. Oral mucous membrane is dry. No pharyngeal erythema or thrush NECK: Trachea central, no thyromegaly. LUNGS: Unlabored breathing. Decreased breath sound at the base. No wheeze or crackle. HEART: S1, S2, regular rate and rhythm. No loud murmur ABDOMEN: Soft, no tenderness , guarding or rigidity, no organomegaly EXTREMITIES: No edema of feet. SKIN: No rash, no masses palpable. NEUROLOGICAL: The patient is awake, alert, oriented x1, mood and affect normal Results CBC & Chem 7: 10/12/18 05:37 10/12/18 05:37 Labs: Abnormal Lab Results - Last 24 Hours (Table) 10/11/18 10/11/18 10/11/18 Range/Units 16:35 16:35 16:35 WBC 22.6 H (3.8-10.6) k/uL RBC (4.30-5.90) m/uL Hgb (13.0-17.5) gm/dL Hct (39.0-53.0) % Neutrophils # 19.7 H (1.3-7.7) k/uL Lymphocytes # 0.9 L (1.0-4.8) k/uL Monocytes # 1.5 H (0-1.0) k/uL Sodium 135 L (137-145) mmol/L Chloride 97 L (98-107) mmol/L Creatinine (0.66-1.25) mg/dL Glucose 174 H (74-99) mg/dL Plasma Lactic Acid Keith 3.6 H* (0.7-2.0) mmol/L ALT 9 L (21-72) U/L Total Protein 8.6 H (6.3-8.2) g/dL Albumin (3.5-5.0) g/dL Urine Protein (Negative) Urine Glucose (UA) (Negative) Urine Blood (Negative) Ur Leukocyte Esterase (Negative) Urine RBC (0-5) /hpf Urine WBC (0-5) /hpf Urine WBC Clumps (None) /hpf Urine Bacteria (None) /hpf Urine Mucus (None) /hpf 10/11/18 10/11/18 10/12/18 Range/Units 16:35 21:01 05:37 WBC 28.7 H (3.8-10.6) k/uL RBC 3.69 L (4.30-5.90) m/uL Hgb 11.2 L (13.0-17.5) gm/dL Hct 33.9 L (39.0-53.0) % Neutrophils # 24.4 H (1.3-7.7) k/uL Lymphocytes # (1.0-4.8) k/uL Monocytes # 2.1 H (0-1.0) k/uL Sodium (137-145) mmol/L Chloride (98-107) mmol/L Creatinine (0.66-1.25) mg/dL Glucose (74-99) mg/dL Plasma Lactic Acid Keith 2.3 H* (0.7-2.0) mmol/L ALT (21-72) U/L Total Protein (6.3-8.2) g/dL Albumin (3.5-5.0) g/dL Urine Protein 1+ H (Negative) Urine Glucose (UA) 3+ H (Negative) Urine Blood Moderate H (Negative) Ur Leukocyte Esterase Large H (Negative) Urine RBC >182 H (0-5) /hpf Urine WBC 72 H (0-5) /hpf Urine WBC Clumps Few H (None) /hpf Urine Bacteria Few H (None) /hpf Urine Mucus Rare H (None) /hpf 10/12/18 Range/Units 05:37 WBC (3.8-10.6) k/uL RBC (4.30-5.90) m/uL Hgb (13.0-17.5) gm/dL Hct (39.0-53.0) % Neutrophils # (1.3-7.7) k/uL Lymphocytes # (1.0-4.8) k/uL Monocytes # (0-1.0) k/uL Sodium 136 L (137-145) mmol/L Chloride (98-107) mmol/L Creatinine 1.30 H (0.66-1.25) mg/dL Glucose 109 H (74-99) mg/dL Plasma Lactic Acid Keith (0.7-2.0) mmol/L ALT 15 L (21-72) U/L Total Protein 6.1 L (6.3-8.2) g/dL Albumin 3.0 L (3.5-5.0) g/dL Urine Protein (Negative) Urine Glucose (UA) (Negative) Urine Blood (Negative) Ur Leukocyte Esterase (Negative) Urine RBC (0-5) /hpf Urine WBC (0-5) /hpf Urine WBC Clumps (None) /hpf Urine Bacteria (None) /hpf Urine Mucus (None) /hpf Microbiology - Last 24 Hours (Table) 10/11/18 16:35 Urine Culture - Preliminary Urine,Catheterized Assessment and Plan Assessment: 1-patient admitted hospital with sepsis in this patient who did have a fever of 102F the patient did have elevated white blood count [id number] meeting criteria for sepsis source is likely urinary tract infection in this patient who has been in and out of the hospital will need to cover for resistant gram-negative patient has some shortness of breath but no significant cough or sputum production chest x-ray finding more likely related to poor inspiratory effort rather than pneumonia (1) Sepsis Current Visit: Yes Status: Acute Code(s): A41.9 - SEPSIS, UNSPECIFIED ORGANISM SNOMED Code(s): 19936273 (2) UTI (urinary tract infection) Current Visit: Yes Status: Acute Code(s): N39.0 - URINARY TRACT INFECTION, SITE NOT SPECIFIED SNOMED Code(s): 18350985 Plan: 1-the patient be continued on Zosyn 3.375 g every 8 hours that should cover for the UTI and possible pneumonitis, however discontinue the vancomycin to decrease risk of nephrotoxicity and clinical suspicion is low for underlying gram- positive infection 2-gentle IV fluid we will follow up on clinical condition and cultures to further adjust medication if needed Thank you for this consultation will follow this patient along with you Time with Patient: Greater than 30
[2018-10-13] MEDS: SODIUM CHLORIDE 0.9% 1,000 ML IV SCH ×3 (00:34→23:44)
[2018-10-13] MEDS: ACETAMINOPHEN TAB 325 MG TAB PO PRN (07:40)
[2018-10-13] MEDS: PIPERACILLIN-TAZOBACTAM 3.375 GM in SODIUM CHLORIDE 0.9% 100 ML IVPB SCH ×3 (07:41→23:44)
[2018-10-13] MEDS: METOPROLOL TARTRATE 12.5 MG TAB PO SCH ×2 (07:41→20:02)
[2018-10-13] MEDS: ASPIRIN 81 MG PO SCH (07:41)
--- NOTE | 2018-10-13 10:45 | PN ---
PROGRESS NOTE CHIEF COMPLAINT: Sepsis due to urinary tract infection. HISTORY OF PRESENT ILLNESS: This gentleman still is more lethargic than normal and is still dehydrated. PHYSICAL EXAM: He is awake but not very alert and not communicative. Exam his chest is clear and cardiac exam is normal. Abdomen is soft, nontender. IMPRESSION: 1. Urinary tract infection. 2. Septicemia. 3. Dementia. PLAN: Continue with IV fluids and antibiotics. MMODL / IJN: [id number] /
[2018-10-13 14:47] LABS: Glucose,Whole Blood 132 mg/dL (75-99)
--- NOTE | 2018-10-13 19:54 | PN ---
PROGRESS NOTE DATE OF SERVICE: 10/13/2018. REASON FOR FOLLOWUP VISIT: Urinary tract infection. INTERVAL HISTORY: The patient is currently afebrile. The patient has been sleepy since morning. Per the RN, has not received any pain medication. No nausea, vomiting or diarrhea reported. The patient did not have any urine output since morning with a plan for a bladder scan per RN. Sugar has been stable, currently at 132. No history could be obtained from the patient. PHYSICAL EXAMINATION: Blood pressure 122/70 with a pulse of 78, temperature 96.9. He is 95% on 2 L. General description is an elderly male lying in bed in no distress. RESPIRATORY SYSTEM: Unlabored breathing. Clear to auscultation anteriorly. HEART: S1, S2. Regular rate and rhythm. ABDOMEN: Soft, no tenderness. LABS: The urine culture showing a gram-negative. No CBC and BMP has been done. Ultrasound was negative for edema or obstruction. IMPRESSION/PLAN: The patient admitted to the hospital with fever and mental status changes. Source is likely urinary tract infection. The patient's urine has been growing gram-negative with resistance to penicillins. We will keep the patient on Zosyn while waiting for the culture to finalize. Bladder scan to make sure the patient is not making any urine. Continue supportive care. MMODL / IJN: [id number] /
[2018-10-14] MEDS: PIPERACILLIN-TAZOBACTAM 3.375 GM in SODIUM CHLORIDE 0.9% 100 ML IVPB SCH (07:20)
[2018-10-14] MEDS: METOPROLOL TARTRATE 12.5 MG TAB PO SCH ×2 (07:21→20:18)
[2018-10-14] MEDS: ASPIRIN 81 MG PO SCH (07:21)
--- NOTE | 2018-10-14 13:04 | PN ---
PROGRESS NOTE DATE OF SERVICE: 10/14/2018 REASON FOR FOLLOWUP: Urinary tract infection. INTERVAL HISTORY: The patient is currently afebrile. Patient has been slightly lethargic, but no agitation has been noted. No nausea, vomiting, or any diarrhea. The patient in on unable to provided any history. PHYSICAL EXAMINATION: Blood count is 157/69, with a pulse of 95, temperature 98.6, he is 97% on 2 L nasal cannula. General description is an elderly male, lying in bed in no distress. RESPIRATORY SYSTEM: Unlabored breathing, clear to auscultation anteriorly. HEART: S1, S2. Regular rate and rhythm. ABDOMEN: Soft, no tenderness. LAB: Urine has been finalized with an E coli, that is a sensitive pathogen. DIAGNOSTIC IMPRESSION AND PLAN: Patient with E coli urinary tract infection, in view of the organism being sensitive. Antibiotic will be transitioned to Rocephin 2 g daily and monitor his clinical course closely. Continue with supportive care. MMODL / IJN: [id number] /
[2018-10-14] MEDS: SODIUM CHLORIDE 0.9% 1,000 ML IV SCH (13:31)
--- NOTE | 2018-10-14 18:28 | PN ---
PROGRESS NOTE CHIEF COMPLAINT: Septicemia, urinary tract infection, dementia. HISTORY OF PRESENT ILLNESS: This gentleman is doing a little bit better. Hydration is improved and he is becoming a little bit more alert. PHYSICAL EXAMINATION: Chest demonstrates scattered rales at the bases. Cardiac exam is normal. Abdomen is soft and nontender. IMPRESSION: 1. Urinary tract infection with septicemia. 2. Dehydration. 3. Dementia. 4. Delirium. PLAN: Continue with IV fluids and antibiotics. MMODL / IJN: [id number] /
[2018-10-15] MEDS: SODIUM CHLORIDE 0.9% 1,000 ML IV SCH ×2 (05:42→15:39)
[2018-10-15] MEDS: ASPIRIN 81 MG PO SCH (07:01)
[2018-10-15] MEDS: METOPROLOL TARTRATE 12.5 MG TAB PO SCH ×2 (07:01→20:16)
[2018-10-15 12:17] LABS: HCT 32.3 % (39.0-53.0); HGB 10.3 gm/dL (13.0-17.5); MCH 29.8 pg (25.0-35.0); MCV 93.1 fL (80.0-100.0); Mean Platelet Volume 9.9; Platelet Count 208 k/uL (150-450); RBC 3.47 m/uL (4.30-5.90); RDW 13.1 % (11.5-15.5); WBC 5.3 k/uL (3.8-10.6)
[2018-10-15 13:31] LABS: Band Neutrophils % 2 %; Eosinophils # (M) 0.42 k/uL (0-0.7); Lymphocytes # (M) 1.06 k/uL (1.0-4.8); Monocytes # (M) 1.01 k/uL (0-1.0); Neutrophils % (M) 51 %; Nucleated Red Blood Cells 0 /100 WBC (0-0); Total Cells Counted 100
--- NOTE | 2018-10-15 13:38 | PN ---
PROGRESS NOTE CHIEF COMPLAINT: Urinary tract infection with sepsis and dementia. HISTORY OF PRESENT ILLNESS: This gentleman is doing better. He is more awake and alert as his hydration improves. PHYSICAL EXAMINATION: Respirations are shallow, but breath sounds are fairly clear. Abdomen is soft and nontender. IMPRESSION: 1. Urinary tract infection with sepsis. 2. Dehydration. 3. Dementia. PLAN: Continue with IV fluids and antibiotics. Try to increase activity. If he continues to improve. He could probably go back to the senior care in a day or 2. MMODL / IJN: [id number] /
--- NOTE | 2018-10-15 18:05 | PN ---
PROGRESS NOTE DATE OF SERVICE: 10/15/2018 REASON FOR FOLLOWUP: E coli urinary tract infection. INTERVAL HISTORY: The patient is currently afebrile. The patient has been breathing comfortably. He is hemodynamically stable. No nausea, vomiting or any diarrhea has been reported. Less agitation per the family at the bedside. PHYSICAL EXAMINATION: Blood pressure 135/67 with a pulse of 65, temperature 97.5. He is 99% on 3 L nasal cannula. General description is an elderly male lying in bed in no distress. RESPIRATORY SYSTEM: Unlabored breathing. Clear to auscultation anteriorly. HEART: S1, S2. Regular rate and rhythm. ABDOMEN: Soft. No tenderness. LABS: Hemoglobin 10.3, white count 5.3. Urine with an E coli sensitive pathogen. Blood cultures have been negative. DIAGNOSTIC IMPRESSION AND PLAN: Patient with an Escherichia coli urinary tract infection. The patient is currently covered with Rocephin. Transition to oral Ceftin on discharge for a short course therapy. Family at the bedside. Their questions and concerns were answered about how to prevent recurrent UTIs. MMODL / IJN: [id number] /
[2018-10-15 22:18] VITALS: RESP 16
[2018-10-16] MEDS: SODIUM CHLORIDE 0.9% 1,000 ML IV SCH (03:59)
[2018-10-16 06:07] VITALS: BP 142/63; PULSE 73
[2018-10-16] MEDS: METOPROLOL TARTRATE 12.5 MG TAB PO SCH (08:37)
[2018-10-16] MEDS: ASPIRIN 81 MG PO SCH (08:37)
[2018-10-16] MEDS ORDERED: NITROFURANTOIN MONOHYD/M-CRYST 100 MG CAP PO STA (11:10)
[2018-10-16 11:39] VITALS: TEMP 98
--- NOTE | 2018-10-16 11:53 | DS ---
DISCHARGE SUMMARY CHIEF COMPLAINT: Fever, chills, delirium, dehydration, lethargy, urinary tract infection, septicemia. HISTORY OF PRESENT ILLNESS AND PHYSICAL EXAM: Details of this man's history and history and physical can be found in the initial workup. LABORATORY STUDIES: While he was in the hospital he had laboratory studies, details of which can be found in the laboratory section of his chart. COURSE IN HOSPITAL: After admission, he was placed on bedrest, started on intravenous fluids and was rehydrated. He was placed on IV antibiotics. He grew out E coli sensitive to most antibiotics. He gradually became more awake and alert and hydration improved. He started to eat and was felt he could go back to the assisted on the . Good on usual activity, diet and medication and will try keeping him on Macrobid 50 mg once a day, to see if this helps suppress his frequent UTIs. The Escherichia coli was sensitive to nitrofurantoin. FINAL DIAGNOSES: 1. Bacterial septicemia. 2. Bacterial urinary tract infection. 3. Dehydration. 4. Dementia. 5. Coronary artery disease. OPERATIONS: None. CONSULTATION: He is improved. MMODL / IJN: [id number] /
--- NOTE | 2018-10-16 12:23 | PN ---
PROGRESS NOTE DATE OF SERVICE: 10/16/2018. REASON FOR FOLLOWUP: E. coli urinary tract infection. INTERVAL HISTORY: The patient is currently afebrile. The patient has been breathing comfortably. He is more awake, alert today. However, remains to be pleasantly confused, unable to provide any history. No nausea, vomiting or diarrhea reported by the nurse aide. PHYSICAL EXAMINATION: Blood pressure is 142/63 with a pulse of 73, temperature 98.5. He is 95% on room air. General description is an elderly male, lying in bed in no distress. RESPIRATORY SYSTEM: Unlabored breathing, clear to auscultation anteriorly. HEART: S1, S2. Regular rate and rhythm. ABDOMEN: Soft, no tenderness. LABS: Hemoglobin is 10.1, white count of 5.3. DIAGNOSTIC IMPRESSION AND PLAN: Patient with an Escherichia coli urinary tract infection, seemed to have shown clinical improvement. PLAN: At this time is to continue therapy with a short course of oral Ceftin and close outpatient followup. Continue supportive care. MMODL / IJN: [id number] /
== END 2018-10-16 16:37 | DRG 872 ==
LOC: EC 16:06 → EEVIPCON 16:06 → 4SSUR 19:05 → 4MS4W 10-13 07:13
PROVIDERS: ADMIT Family Medicine; ATTEND Family Medicine
DX: A41.51 Sepsis due to Escherichia coli [E. coli] (principal); N39.0 Urinary tract infection, site not specified; E86.0 Dehydration; F03.90 Unspecified dementia, unspecified severity, without behavioral disturbance, psychotic disturbance, mood disturbance, and anxiety; I10 Essential (primary) hypertension; I25.10 Atherosclerotic heart disease of native coronary artery without angina pectoris; J44.9 Chronic obstructive pulmonary disease, unspecified; K21.9 Gastro-esophageal reflux disease without esophagitis; Z79.82 Long term (current) use of aspirin; Z82.49 Family history of ischemic heart disease and other diseases of the circulatory system; Z86.73 Personal history of transient ischemic attack (TIA), and cerebral infarction without residual deficits; Z87.891 Personal history of nicotine dependence; Z95.1 Presence of aortocoronary bypass graft; Z90.49 Acquired absence of other specified parts of digestive tract; Z87.440 Personal history of urinary (tract) infections
CPT/HCPCS: 36415; 51701; 71046; 76770; 80053; 81001; 82565; 83605; 85025; 85610; 85730; 87040; 87077; 87086; 87186; 93005; 96361; 96365; 99291

== ENCOUNTER 2018-12-23 17:06 | Inpatient (IN) | payer MEDICARE, BC ==
[2018-12-23] MEDS ORDERED: cefTRIAXone IN SWFI 1,000 MG/10 ML SYRINGE IVP STA ×2 (17:53→18:32)
--- NOTE | 2018-12-23 17:59 | ED ---
General Adult HPI - General Chief complaint: Altered Mental Status Stated complaint: UTI Time Seen by Provider: 12/23/18 17:15 Source: EMS, RN notes reviewed Mode of arrival: EMS Limitations: altered mental status, physical limitation - History of Present Illness Initial comments: This is an 88-year-old male who presents emergency Department with his . Patient comes in because the states he is altered mentally. states she's normally awake but not alert or oriented. states that the normal speech but doesn't make any sense and today he wasn't talking at all which indicated to her that something was wrong. Patient is unable to express that he has any pain. states he does not have a fever that she knows of. states he is breathing a little heavier than normal. He has a history of urinary tract infections and once had pneumonia. does state he has trouble swallowing so most of his food is thickened. Patient is unable to give any history on his own. - Related Data Home Medications Medication Instructions Recorded Confirmed Aspirin EC [Ecotrin Low Dose] 81 mg PO DAILY 11/12/15 12/23/18 Metoprolol Tartrate [Lopressor] 12.5 mg PO BID 11/18/17 12/23/18 Melatonin 5 mg PO HS 05/08/18 12/23/18 Magnesium Hydroxide [Milk of 2,400 mg PO DAILY PRN 09/19/18 12/23/18 Magnesia] Allergies Allergy/AdvReac Type Severity Reaction Status Date / Time No Known Allergies Allergy Verified 12/23/18 19:14 Review of Systems ROS Statement: Those systems with pertinent positive or pertinent negative responses have been documented in the HPI. ROS Other: All systems not noted in ROS Statement are negative. 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, [place] History of Any Multi-Drug Resistant Organisms: None Reported Past Surgical History: Appendectomy, Cholecystectomy, Coronary Bypass/CABG Additional Past Surgical History / Comment(s): double bypass approx 8 yrs ago Past Anesthesia/Blood Transfusion Reactions: No Reported Reaction Past Psychological History: No Psychological Hx Reported Smoking Status: Former smoker Past Alcohol Use History: None Reported Past Drug Use History: None Reported - Past Family History Father Family Medical History: Myocardial Infarction ([place]) Additional Family Medical History / Comment(s): father in his 50s General Exam - General Exam Comments Initial Comments: GENERAL: Patient is well-developed and well-nourished. ENT: Neck is soft and supple. No significant lymphadenopathy is noted. Oropharynx is clear. Moist mucous membranes. EYES: The sclera were anicteric and conjunctiva were pink and moist. PULMONARY: Unlabored respirations. Good breath sounds bilaterally. CARDIOVASCULAR: There is a regular rate and rhythm without any murmurs gallops or rubs. ABDOMEN: Soft and nontender with normal bowel sounds. SKIN: Skin is clear with no lesions or rashes and otherwise unremarkable. NEUROLOGIC: Patient is not oriented at all. Cranial nerves II through XII are grossly intact. Motor and sensory are also intact. Normal speech, volume and content. Symmetrical smile. MUSCULOSKELETAL: Normal extremities with adequate strength and full range of motion. LYMPHATICS: No significant lymphadenopathy is noted PSYCHIATRIC: Normal psychiatric evaluation. Limitations: altered mental status, physical limitation Course Vital Signs 12/23/18 12/23/18 12/23/18 17:17 17:22 18:21 Temperature 99.4 F 103.0 F H Pulse Rate 101 H 96 Respiratory 16 16 Rate Blood Pressure 143/70 143/70 O2 Sat by Pulse 94 L 98 Oximetry 12/23/18 12/23/18 18:51 18:59 Temperature Pulse Rate 98 Respiratory 18 Rate Blood Pressure 107/96 O2 Sat by Pulse 96 Oximetry Medical Decision Making - Medical Decision Making EKG shows sinus rhythm at a 99 bpm AL interval is 204 QRS is 80 QT interval is 348 QTC is 446. Patient's EKG is a quality EKG because the patient would not sit still. But there is no obvious ST segment elevation. Chest x-ray shows an infiltrate not right base which appears to be worse than previous x-ray. Because the patient had a high fever and some white cells in the urine and the infiltrate I started the patient on Rocephin [address] Vizcarra and he agreed to admit the patient admitted the patient wrote admitting orders. - Lab Data Result diagrams: 12/23/18 17:17 12/23/18 17:17 Lab Results 12/23/18 12/23/1812/23/19 Range/Units 17:17 17:17 17:17 WBC 25.1 H (3.8-10.6) k/uL RBC 3.77 L (4.30-5.90) m/uL Hgb 11.7 L (13.0-17.5) gm/dL Hct 35.0 L (39.0-53.0) % MCV 93.0 (80.0-100.0) fL MCH 30.9 (25.0-35.0) pg MCHC 33.3 (31.0-37.0) g/dL RDW 15.1 (11.5-15.5) % Plt Count 301 (150-450) k/uL Neutrophils % 82 % Lymphocytes % 6 % Monocytes % 9 % Eosinophils % 1 % Basophils % 1 % Neutrophils # 20.7 H (1.3-7.7) k/uL Lymphocytes # 1.6 (1.0-4.8) k/uL Monocytes # 2.2 H (0-1.0) k/uL Eosinophils # 0.2 (0-0.7) k/uL Basophils # 0.2 (0-0.2) k/uL PT (9.0-12.0) sec INR (<1.2) APTT (22.0-30.0) sec Sodium 132 L (137-145) mmol/L Potassium 5.1 (3.5-5.1) mmol/L Chloride 97 L (98-107) mmol/L Carbon Dioxide 22 (22-30) mmol/L Anion Gap 13 mmol/L BUN 19 (9-20) mg/dL Creatinine 1.18 (0.66-1.25) mg/dL Est GFR (CKD-EPI)AfAm 63 (>60 ml/min/1.73 sqM) Est GFR (CKD-EPI)NonAf 55 (>60 ml/min/1.73 sqM) Glucose 184 H (74-99) mg/dL Plasma Lactic Acid Keith 2.6 H* (0.7-2.0) mmol/L Calcium 9.5 (8.4-10.2) mg/dL Total Bilirubin 1.0 (0.2-1.3) mg/dL AST 45 (17-59) U/L ALT <6 L (21-72) U/L Alkaline Phosphatase 96 (38-126) U/L Troponin I (0.000-0.034) ng/mL Total Protein 8.3 H (6.3-8.2) g/dL Albumin 4.1 (3.5-5.0) g/dL Urine Color Urine Appearance (Clear) Urine pH (5.0-8.0) Ur Specific [place] (1.001-1.035) Urine Protein (Negative) Urine Glucose (UA) (Negative) Urine Ketones (Negative) Urine Blood (Negative) Urine Nitrite (Negative) Urine Bilirubin (Negative) Urine Urobilinogen (<2.0) mg/dL Ur Leukocyte Esterase (Negative) Urine RBC (0-5) /hpf Urine WBC (0-5) /hpf Ur Squamous Epith Cells (0-4) /hpf Urine Mucus (None) /hpf 12/23/18 12/23/18 12/23/18 Range/Units 17:17 17:17 18:12 WBC (3.8-10.6) k/uL RBC (4.30-5.90) m/uL Hgb (13.0-17.5) gm/dL Hct (39.0-53.0) % MCV (80.0-100.0) fL MCH (25.0-35.0) pg MCHC (31.0-37.0) g/dL RDW (11.5-15.5) % Plt Count (150-450) k/uL Neutrophils % % Lymphocytes % % Monocytes % % Eosinophils % % Basophils % % Neutrophils # (1.3-7.7) k/uL Lymphocytes # (1.0-4.8) k/uL Monocytes # (0-1.0) k/uL Eosinophils # (0-0.7) k/uL Basophils # (0-0.2) k/uL PT 10.4 (9.0-12.0) sec INR 1.0 (<1.2) APTT 22.8 (22.0-30.0) sec Sodium (137-145) mmol/L Potassium (3.5-5.1) mmol/L Chloride (98-107) mmol/L Carbon Dioxide (22-30) mmol/L Anion Gap mmol/L BUN (9-20) mg/dL Creatinine (0.66-1.25) mg/dL Est GFR (CKD-EPI)AfAm (>60 ml/min/1.73 sqM) Est GFR (CKD-EPI)NonAf (>60 ml/min/1.73 sqM) Glucose (74-99) mg/dL Plasma Lactic Acid Keith (0.7-2.0) mmol/L Calcium (8.4-10.2) mg/dL Total Bilirubin (0.2-1.3) mg/dL AST (17-59) U/L ALT (21-72) U/L Alkaline Phosphatase (38-126) U/L Troponin I <0.012 (0.000-0.034) ng/mL Total Protein (6.3-8.2) g/dL Albumin (3.5-5.0) g/dL Urine Color Yellow Urine Appearance Clear (Clear) Urine pH 8.0 (5.0-8.0) Ur Specific [place] 1.017 (1.001-1.035) Urine Protein 1+ H (Negative) Urine Glucose (UA) 2+ H (Negative) Urine Ketones Negative (Negative) Urine Blood Small H (Negative) Urine Nitrite Positive (Negative) Urine Bilirubin Negative (Negative) Urine Urobilinogen <2.0 (<2.0) mg/dL Ur Leukocyte Esterase Moderate H (Negative) Urine RBC 52 H (0-5) /hpf Urine WBC 18 H (0-5) /hpf Ur Squamous Epith Cells <1 (0-4) /hpf Urine Mucus Rare H (None) /hpf Critical Care Time Critical Care Time: Yes Total Critical Care Time: 35 Disposition Clinical Impression: Urinary tract infection, Sepsis, Pneumonia, Altered mental state Disposition: ADMITTED IP TO THIS HOSP Referrals: Gama Hart MD [Primary Care Provider] - 1-2 days Time of Disposition: 20:04
[2018-12-23 18:04] LABS: Basophils # (A) 0.2 k/uL (0-0.2); Basophils % (A) 1 %; Eosinophils # (A) 0.2 k/uL (0-0.7); Eosinophils % (A) 1 %; HGB 11.7 gm/dL (13.0-17.5); Lymphocytes # (A) 1.6 k/uL (1.0-4.8); Lymphocytes % (A) 6 %; MCH 30.9 pg (25.0-35.0); MCHC 33.3 g/dL (31.0-37.0); Mean Platelet Volume 10.3; Monocytes # (A) 2.2 k/uL (0-1.0); Monocytes % (A) 9 %; Neutrophils # (A) 20.7 k/uL (1.3-7.7); Neutrophils % (A) 82 %; Platelet Count 301 k/uL (150-450); RBC 3.77 m/uL (4.30-5.90); RDW 15.1 % (11.5-15.5); WBC 25.1 k/uL (3.8-10.6)
[2018-12-23 18:12] LABS: ALT <6 U/L (21-72); AST 45 U/L (17-59); African American GFR (CKD) 63 (>60 ml/min/1.73 sqM); Albumin 4.1 g/dL (3.5-5.0); Alkaline Phosphatase 96 U/L (38-126); Anion Gap 13 mmol/L; Blood Urea Nitrogen 19 mg/dL (9-20); Calcium 9.5 mg/dL (8.4-10.2); Carbon Dioxide 22 mmol/L (22-30); Chloride 97 mmol/L (98-107); Glucose 184 mg/dL (74-99); Non-African American GFR(CKD) 55 (>60 ml/min/1.73 sqM); Potassium 5.1 mmol/L (3.5-5.1); Sodium 132 mmol/L (137-145); Total Protein 8.3 g/dL (6.3-8.2)
[2018-12-23 18:13] LABS: Partial Thromboplastin Time 22.8 sec (22.0-30.0); Prothrombin Time 10.4 sec (9.0-12.0)
[2018-12-23] MEDS: SODIUM CHLORIDE 0.9% 500 ML 500 ML IV SCH ×2 (18:19→18:49)
[2018-12-23] MEDS ORDERED: IBUPROFEN IV 800 MG in SODIUM CHLORIDE 0.9% 250 ML IV ONE (18:31)
[2018-12-23] MEDS ORDERED: ACETAMINOPHEN SUPPOSITORY 650 MG SUPP RECTAL STA (18:31)
[2018-12-23 18:36] LABS: Appearance,Urine Clear (Clear); Bilirubin,Urine Negative (Negative); Blood,Urine Small (Negative); Color,Urine Yellow; Glucose,Urine (UA) 2+ (Negative); Ketones,Urine Negative (Negative); Leukocyte Esterase,Urine Moderate (Negative); Mucus,Urine Rare /hpf; Nitrite,Urine Positive (Negative); Protein,Urine 1+ (Negative); RBC,Urine 52 /hpf (0-5); Specific Gravity,Urine 1.017 (1.001-1.035); Squamous Epithelial Cell,Urine <1 /hpf (0-4); Urobilinogen,Urine <2.0 mg/dL (<2.0); WBC,Urine 18 /hpf (0-5)
--- NOTE | 2018-12-23 19:51 | XR ---
EXAMINATION TYPE: XR chest 2V DATE OF EXAM: 12/23/2018 COMPARISON: 10/11/2018 HISTORY: Fever TECHNIQUE: Frontal and lateral views of the chest are obtained. FINDINGS: There is some patchy atelectasis at the lung bases. There are sternal wires. Heart size is normal. There is spurring in the thoracic spine. IMPRESSION: Mild atelectasis at the lung bases is the same or slightly worse than last exam. No hear t failure.
[2018-12-23] MEDS ORDERED: AZITHROMYCIN 500 MG in SODIUM CHLORIDE 0.9% 250 ML IVPB STA (20:06)
[2018-12-23] MEDS ORDERED: SODIUM CHLORIDE 0.9% 1,000 ML IV SCH (20:15)
[2018-12-24] MEDS ORDERED: IPRATROPIUM-ALBUTEROL 3 ML NEB INHALATION PRN (11:26)
[2018-12-24 12:09] LABS: HGB 11.3 gm/dL (13.0-17.5); MCH 31.1 pg (25.0-35.0); MCHC 33.3 g/dL (31.0-37.0); MCV 93.3 fL (80.0-100.0); Mean Platelet Volume 8.7; Platelet Count 286 k/uL (150-450); RBC 3.65 m/uL (4.30-5.90); RDW 14.1 % (11.5-15.5); WBC 18.5 k/uL (3.8-10.6)
[2018-12-24 12:25] LABS: Calcium 9.1 mg/dL (8.4-10.2); Potassium 4.5 mmol/L (3.5-5.1)
[2018-12-24] MEDS ORDERED: LEVOFLOXACIN 500MG-D5W PMX 500 MG in DEXTROSE/WATER 1 100ML.BAG IVPB SCH (13:00)
[2018-12-24] MEDS: IPRATROPIUM-ALBUTEROL 3 ML NEB INHALATION SCH ×2 (13:14→19:24)
--- NOTE | 2018-12-24 13:28 | P.CNPUL ---
History of Present Illness Consult date: 12/24/18 Requesting physician: Gama Hart Reason for consult: dyspnea, other Chief complaint: Altered mentation, fever, dyspnea History of present illness: This is a 88-year-old white male patient of Dr. Coppola with past history of advanced dementia, he is a resident of [facility] since May 2018, history of recurrent urinary tract infections, his history of pneumonias, COPD, CVA/TIA, GERD/reflux, hypertension, and past history of smoking, was brought in to the emergency department on 12/23/2018 for evaluation of altered mental status, mild dyspnea, cough, and fever of 101F. Patient was recently hospitalized in October twice for urinary tract infections, patient is chronically incontinent of urine and occasionally of bowel. Wears a brief. His states the day before he was more fidgety, and on the day of admission she came in and found the patient extremely lethargic and febrile. She does admit patient having some snoring breathing the day before, some limited cough, he did sound congested, but not able to bring up anything. Normally does not wear oxygen. Does have chronic dysphagia and he is on modified diet with pured diet and thickened liquids. Chest x-ray was completed in the emergency department showing patchy atelectasis at the lung bases, or a possibility of early infiltrate at the right base. Patient had positive leukocytosis, with a white blood cell count of 25.1, hemoglobin of 11.7, serum sodium was 132, potassium is 5.1, chloride was 97, CO2 is 22, renal profile was within normal limits, lactic acid was elevated at 2.6, blood was negative 1, urinalysis showed nitrites, moderate leuk trase, and white blood cells and red blood cells. Patient is extremely poor historian, unable to provide much history, or follow instructions. Most history was provided by his was at the bedside. Patient was started on the condition of Rocephin and Zithromax for possibility of right lower lung pneumonia, and urinary tract infection, blood cultures and urine cultures have been sent and are pending at this time. No hypotension, this morning she is afebrile, with a temp of 97.4, room air pulse ox 94%, tachycardia, respirations are nonlabored, diminished breath sounds with the bilateral rales at the bases, right greater than the left. Patient is confused, but seems to be at his baseline for the most part, he is awake today, and his mentation seems to have improved. Review of Systems All systems: negative Constitutional: Denies chills, Denies fever Eyes: denies blurred vision, denies pain Ears, nose, mouth and throat: Denies headache, Denies sore throat Cardiovascular: Denies chest pain, Denies shortness of breath Respiratory: Reports congestion, Reports dyspnea, Denies cough Gastrointestinal: Denies abdominal pain, Denies diarrhea, Denies nausea, Denies vomiting Musculoskeletal: Denies myalgias Integumentary: Denies pruritus, Denies rash Neurological: Reports change in mentation, Reports confusion, Reports gait dysfunction, Denies numbness, Denies weakness Psychiatric: Denies anxiety, Denies depression Endocrine: Denies fatigue, Denies weight change 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 Smoking Status: Former smoker Past Alcohol Use History: None Reported Additional Past Alcohol Use History / Comment(s): started smoking age 17(1948) and quit 1989, sig other does'nt know how much he used to smoked. Past Drug Use History: None Reported - Past Family History Father Family Medical History: Myocardial Infarction ([place]) Additional Family Medical History / Comment(s): father in his 50s Medications and Allergies Home Medications Medication Instructions Recorded Confirmed Type Aspirin EC [Ecotrin Low Dose] 81 mg PO DAILY 11/12/15 12/23/18 History Metoprolol Tartrate [Lopressor] 12.5 mg PO BID 11/18/17 12/23/18 History Melatonin 5 mg PO HS 05/08/18 12/23/18 History Magnesium Hydroxide [Milk of 2,400 mg PO DAILY PRN 09/19/18 12/23/18 History Magnesia] Allergies Allergy/AdvReac Type Severity Reaction Status Date / Time No Known Allergies Allergy Verified 12/23/18 19:14 Physical Exam Vitals: Vital Signs Temp Pulse Pulse Resp BP BP Pulse Ox 12/24/18 05:00 97.4 F L 66 18 136/59 94 L 12/24/18 03:50 99.2 F 12/23/18 23:00 59 L 18 102/51 94 L 12/23/18 21:00 100.9 F H 72 18 105/62 95 12/23/18 18:59 107/96 12/23/18 18:51 98 18 96 12/23/18 18:21 96 16 143/70 98 12/23/18 17:22 103.0 F H 12/23/18 17:17 99.4 F 101 H 16 143/70 94 L Intake and Output 12/23/18 12/24/18 12/24/18 22:59 06:59 14:59 Intake Total 0 Balance 0 Intake: Oral 0 Other: Voiding Method Incontinent Incontinent # Voids 1 # Bowel Movements 1 Weight 72.575 kg GENERAL EXAM: Alert, confused, 88-year-old white male, poor historian, does not follow command, related to history of advanced dementia comfortable in no apparent distress. HEAD: Normocephalic/atraumatic. EYES: Normal reaction of pupils, equal size. Conjunctiva pink, sclera white. NOSE: Clear with pink turbinates. THROAT: No erythema or exudates. NECK: No masses, no JVD, no thyroid enlargement, no adenopathy. CHEST: No chest wall deformity. Symmetrical expansion. LUNGS: Equal air entry with bibasilar crackles crackles, but no wheeze, rhonchi or dullness. CVS: Regular rate and rhythm, normal S1 and S2, no gallops, no murmurs, no rubs ABDOMEN: Soft, nontender. No hepatosplenomegaly, normal bowel sounds, no guarding or rigidity. EXTREMITIES: No clubbing, no edema, no cyanosis, 2+ pulses and upper and lower extremities. MUSCULOSKELETAL: Muscle strength and tone normal. SPINE: No scoliosis or deformity SKIN: No rashes CENTRAL NERVOUS SYSTEM: Alert, confused. No focal deficits, tone is normal in all 4 extremities. PSYCHIATRIC: Alert, confused. Results - Laboratory Findings CBC and BMP: 12/24/18 11:45 12/24/18 11:45 PT/INR, D-dimer PT 10.4 sec (9.0-12.0) 12/23/18 17:17 INR 1.0 (<1.2) 12/23/18 17:17 Abnormal lab findings: Abnormal Labs 12/23/18 12/23/18 12/23/18 17:17 17:17 17:17 WBC 25.1 H RBC 3.77 L Hgb 11.7 L Hct 35.0 L Neutrophils # 20.7 H Monocytes # 2.2 H Sodium 132 L Chloride 97 L Glucose 184 H Plasma Lactic Acid Keith 2.6 H* ALT <6 L Total Protein 8.3 H Urine Protein Urine Glucose (UA) Urine Blood Ur Leukocyte Esterase Urine RBC Urine WBC Urine Mucus 12/23/18 12/24/18 12/24/18 18:12 11:45 11:45 WBC 18.5 H RBC 3.65 L Hgb 11.3 L Hct 34.0 L Neutrophils # Monocytes # Sodium 135 L Chloride Glucose 117 H Plasma Lactic Acid Keith ALT Total Protein Urine Protein 1+ H Urine Glucose (UA) 2+ H Urine Blood Small H Ur Leukocyte Esterase Moderate H Urine RBC 52 H Urine WBC 18 H Urine Mucus Rare H - Diagnostic Findings Chest x-ray: report reviewed, image reviewed Assessment and Plan Plan: Assessment: #1. Acute urinary tract infection with sepsis #2. Lactic acidosis related to the above, resolved #3. Altered mentation, improved #4. History of recurrent urinary tract infections #5. Dyspnea, congestion, bibasilar atelectasis versus early infiltrates #6. Dysphagia, he is on modified diet, risk for aspiration related to advanced dementia #7. History of COPD #8. CVA/TIA, #9. Dementia #10. Gait dysfunction, is wheelchair bound, resides at a local longterm #11. History of hypertension #12. Former smoker #13. History of coronary artery disease, status post bypass grafting Plan: Blood culture and urine culture have been collected and are pending at this time, fever has improved, patient is awake and alert, confused, which seems to be the patient's baseline. Maintain aspiration precautions, speech therapy is evaluating the patient. Hemodynamically stable, leukocytosis is improving. We'll stop the Rocephin and Zithromax will switch to Zosyn and Levaquin. We'll order some breathing treatments. We'll continue to follow. I performed a history & physical examination of the patient and discussed their management with my nurse practitioner, Heike eKy. I reviewed the nurse practitioner's note and agree with the documented findings and plan of care. Lung sounds are positive for basilar rales. The findings and the impression was discussed with the patient. I attest to the documentation by the nurse practitioner. Time with Patient: Greater than 30
[2018-12-24] MEDS: DEXTROSE 5%-0.2% NACL 1,000 ML IV SCH (14:05)
[2018-12-24] MEDS: PIPERACILLIN-TAZOBACTAM 3.375 GM in SODIUM CHLORIDE 0.9% 100 ML IVPB SCH (16:33)
--- NOTE | 2018-12-24 17:41 | HP ---
HISTORY AND PHYSICAL CHIEF COMPLAINT: Fever and mental status changes. HISTORY OF PRESENT ILLNESS: This 88-year-old man was sent to the emergency room from the [place] [facility] when he developed fever, chills, more lethargy and mental status changes. He has severe dementia. He has been having frequent episodes of urinary tract infections with sepsis. He presented to the emergency room and was evaluated and admitted for sepsis. REVIEW OF SYSTEMS: Review of systems cannot be obtained from the patient. He is severely demented. Past medical history, family history, and personal and social histories are unremarkable and unchanged. He does have a history of hypertension and CAD many years ago. PHYSICAL EXAMINATION: Blood pressure is 138/90 with a pulse of 84 and regular, respirations of 36 and temperature 99.6. In general he appeared to be slightly dehydrated. He was a little bit more lethargic than usual. Head, ears, eyes, nose, mouth and throat were normal. Pupils were round and gaze conjugate. Neck veins were not distended. Thyroid was not enlarged. Chest was clear. Cardiac exam was normal. Abdomen was soft, nontender. Neurologically he is profoundly demented. He is admitted to the hospital with the diagnoses: 1. Urinary tract infection and sepsis. 2. Possible limited pneumonitis. 3. Dementia. 4. History of coronary artery disease. PLAN: 1. Bed rest. 2. IV fluids. 3. IV antibiotics. MMKERMIT / NORBERT: [id number] /
--- NOTE | 2018-12-24 17:53 | PN ---
PROGRESS NOTE DATE OF SERVICE: 12/24/2018 CHIEF COMPLAINT: Urinary tract infection and sepsis. HISTORY OF PRESENT ILLNESS: This gentleman is a little bit more alert today. He remains confused. He denies any pain. PHYSICAL EXAMINATION: He is dehydrated. Chest demonstrates breath sounds on both sides. The cardiac exam is normal. Abdomen is soft and nontender. Extremities are normal. IMPRESSION: 1. Urinary tract infection. 2. Dementia. 3. Delirium. 4. Coronary artery disease. 5. History of hypertension. PLAN: IV fluids and continue antibiotics. MMODL / IJN: [id number] /
[2018-12-24] MEDS ORDERED: AZITHROMYCIN 500 MG in SODIUM CHLORIDE 0.9% 250 ML IVPB SCH (21:00)
[2018-12-25] MEDS: PIPERACILLIN-TAZOBACTAM 3.375 GM in SODIUM CHLORIDE 0.9% 100 ML IVPB SCH ×4 (00:44→23:24)
[2018-12-25] MEDS: DEXTROSE 5%-0.2% NACL 1,000 ML IV SCH ×3 (00:45→17:43)
[2018-12-25] MEDS: IPRATROPIUM-ALBUTEROL 3 ML NEB INHALATION SCH ×3 (07:28→19:19)
[2018-12-25 07:56] LABS: HCT 31.2 % (39.0-53.0); HGB 10.4 gm/dL (13.0-17.5); MCH 30.9 pg (25.0-35.0); MCHC 33.3 g/dL (31.0-37.0); MCV 92.9 fL (80.0-100.0); Mean Platelet Volume 9.1; Platelet Count 276 k/uL (150-450); RBC 3.36 m/uL (4.30-5.90); WBC 10.4 k/uL (3.8-10.6)
[2018-12-25 08:19] LABS: Potassium 4.1 mmol/L (3.5-5.1)
--- NOTE | 2018-12-25 11:06 | P.PN ---
Subjective Progress Note Date: 12/25/18 Principal diagnosis: Acute urinary tract infection with sepsis. This is a 88-year-old white male patient of Dr. Coppola with past history of advanced dementia, he is a resident of [facility] [place] since May 2018, history of recurrent urinary tract infections, his history of pneumonias, COPD, CVA/TIA, GERD/reflux, hypertension, and past history of smoking, was br ought in to the emergency department on 12/23/2018 for evaluation of altered mental status, mild dyspnea, cough, and fever of 101F. Patient was recently hospitalized in October twice for urinary tract infections, patient is chronically incontinent of urine and occasionally of bowel. Wears a brief. His states the day before he was more fidgety, and on the day of admission she came in and found the patient extremely lethargic and febrile. She does admit patient having some snoring breathing the day before, some limited cough, he did sound congested, but not able to bring up anything. Normally does not wear oxygen. Does have chronic dysphagia and he is on modified diet with pured diet and thickened liquids. Chest x-ray was completed in the emergency department showing patchy atelectasis at the lung bases, or a possibility of early infiltrate at the right base. Patient had positive leukocytosis, with a white blood cell count of 25.1, hemoglobin of 11.7, serum sodium was 132, potassium is 5.1, chloride was 97, CO2 is 22, renal profile was within normal limits, lactic acid was elevated at 2.6, blood was negative 1, urinalysis showed nitrites, moderate leuk trase, and white blood cells and red blood cells. Patient is extremely poor historian, unable to provide much history, or follow instructions. Most history was provided by his was at the bedside. Patient was started on the condition of Rocephin and Zithromax for possibility of right lower lung pneumonia, and urinary tract infection, blood cultures and urine cultures have been sent and are pending at this time. No hypotension, this morning she is afebrile, with a temp of 97.4, room air pulse ox 94%, tachy cardia, respirations are nonlabored, diminished breath sounds with the bilateral rales at the bases, right greater than the left. Patient is confused, but seems to be at his baseline for the most part, he is awake today, and his mentation seems to have improved. The patient is seen today 12/25/2018 in follow-up on the regular medical floor. He is currently awake, alert, disoriented to time and place. He is resting comfortably in bed. Maintaining good O2 saturations in the 90s on room air. He's been afebrile. Hemodynamically stable. Urine culture reveals gram- negative bacilli. Blood culture reveals no growth. White count 10.4. Hemoglobin 10.4. Creatinine 1.16. Sodium 132. Potassium 4.1. He is continued on Zosyn and Levaquin. Maintained on bronchodilators. D5.45 normal saline at 100 ML's per hour. Objective - Vital Signs Vital signs: Vital Signs Temp 97.9 F 12/25/18 05:25 Pulse 68 12/25/18 07:43 Resp 20 12/25/18 08:00 BP 120/64 12/25/18 05:25 Pulse Ox 94 L 12/25/18 07:31 Intake & Output 12/24/18 12/25/18 12/25/18 18:59 06:59 18:59 Intake Total 50 100 Balance 50 100 Intake: Intake, IV Titration 50 Amount cefTRIAXone 1 gm In 50 Sodium Chloride 0.9% 50 ml @ 100 mls/hr IVPB Q24HR [facility] Rx#:[id number] Oral 100 Other: Voiding Method Incontinent Incontinent Incontinent # Voids 2 # Bowel Movements 0 - Exam GENERAL EXAM: Alert, confused, 88-year-old male, poor historian, does not follow command, related to history of advanced dementia comfortable in no appa rent distress. On room air. HEAD: Normocephalic/atraumatic. EYES: Normal reaction of pupils, equal size. Conjunctiva pink, sclera white. NOSE: Clear with pink turbinates. THROAT: No erythema or exudates. NECK: No masses, no JVD, no thyroid enlargement, no adenopathy. CHEST: No chest wall deformity. Symmetrical expansion. LUNGS: Equal air entry with bibasilar crackles crackles, but no wheeze, rhonchi or dullness. CVS: Regular rate and rhythm, normal S1 and S2, no gallops, no murmurs, no rubs ABDOMEN: Soft, nontender. No hepatosplenomegaly, normal bowel sounds, no guarding or rigidity. EXTREMITIES: No clubbing, no edema, no cyanosis, 2+ pulses and upper and lower extremities. MUSCULOSKELETAL: Muscle strength and tone normal. SPINE: No scoliosis or deformity SKIN: No rashes CENTRAL NERVOUS SYSTEM: Alert, confused. No focal deficits, tone is normal in all 4 extremities. PSYCHIATRIC: Alert, confused. - Labs CBC & Chem 7: 12/25/18 07:13 12/25/18 07:13 Labs: Abnormal Lab Results - Last 24 Hours (Table) 12/24/18 12/24/18 12/25/18 Range/Units 11:45 11:45 07:13 WBC 18.5 H (3.8-10.6) k/uL RBC 3.65 L 3.36 L (4.30-5.90) m/uL Hgb 11.3 L 10.4 L (13.0-17.5) gm/dL Hct 34.0 L 31.2 L (39.0-53.0) % Sodium 135 L (137-145) mmol/L Glucose 117 H (74-99) mg/dL 12/25/18 Range/Units 07:13 WBC (3.8-10.6) k/uL RBC (4.30-5.90) m/uL Hgb (13.0-17.5) gm/dL Hct (39.0-53.0) % Sodium 132 L (137-145) mmol/L Glucose 129 H (74-99) mg/dL Microbiology - Last 24 Hours (Table) 12/23/18 17:17 Blood Culture - Preliminary Blood No Growth after 24 hours 12/23/18 19:40 Urine Culture - Preliminary Urine,Catheterized Gram Neg Bacilli Assessment and Plan Assessment: Assessment: #1. Acute urinary tract infection secondary to gram-negative bacilli with sepsis #2. Lactic acidosis related to the above, resolved #3. Altered mentation, improved #4. History of recurrent urinary tract infections #5. Dyspnea, congestion, bibasilar atelectasis versus early infiltrates #6. Dysphagia, he is on modified diet, risk for aspiration related to advanced dementia #7. History of COPD #8. CVA/TIA, #9. Dementia #10. Gait dysfunction, wheelchair bound, resides at a local detention #11. History of hypertension #12. Former smoker #13. History of coronary artery disease, status post bypass grafting Plan: The patient is seen and evaluated by Dr. Diaz. He is currently stable from the pulmonary standpoint. Continue with DuoNeb inhalations. Continue antibiotics in the form of Zosyn and Levaquin. Aspiration precautions. Speech evaluation recommended pured diet with nectar thick liquids. We'll continue to follow. I, the cosigning physician, performed a history & physical examination of the patient. Lungs sounds with basilar crackles. Maintaining good O2 saturations in the 90s on room air. I discussed the assessment and plan of care with my nurse practitioner, Marjorie Osman. I attest to the above note as dictated by her.
[2018-12-25 11:25] LABS: Albumin 3.1 g/dL (3.5-5.0); Total Bilirubin 0.3 mg/dL (0.2-1.3); Total Protein 6.6 g/dL (6.3-8.2)
--- NOTE | 2018-12-25 11:54 | CDI ---
Documentation Clarification Form Date: 12/25/2018 11:39:50 AM From: Alondra Schultz RN, CCDS Admit Date: 12/23/2018 8:07:00 PM Patient Name: Mauro Simmons Visit Number: [id number] ATTENTION: The Clinical Documentation Specialists (CDI) and [facility] Coding Staff appreciate your assistance in clarifying documentation. Please respond to the clarification below the line at the bottom and electronically sign. The CDI & [facility] Coding staff will review the response and follow-up if needed. Please note: Queries are made part of the Legal Health Record. If you have any questions, please contact the author of this message via ITS. Dr. Gama Hart Altered Mental Status was documented in the EC, H&P, Consult, and Progress notes and requires further specificity. History/Risk Factors: Frequent UTI, from a [facility] Clinical Indicators: 12/24 H&P: "Altered mentation, fever, dyspnea. Neurologically he is profoundly demented. Urinary tract infection and sepsis. Possible limited pneumonitis. Dementia." 12/24 Consult: "Patient is confused, but seems to be at his baseline for the most part, he is awake today, and his mentation seems to have improved." Labs: WBC 25.1/18.5/10.4, HGB 11.7/11.3/10.4 CXR: mild atelectasis Treatment: IV Rocephin, ivf bolus, IV Motrin, IV Zithromax, IV Levaquin In your professional opinion, please clarify the etiology of the Altered Mental Status, if known. Metabolic Encephalopathy (specify cause if known) Toxic Encephalopathy (specify cause/drug if known) Other condition (please specify) Unable to determine (Last Revision: August 2017) MTDD
[2018-12-25] MEDS: LEVOFLOXACIN 250MG-D5W PMX 250 MG in DEXTROSE/WATER 1 50ML.BAG IVPB SCH (13:11)
--- NOTE | 2018-12-25 17:12 | PN ---
PROGRESS NOTE CHIEF COMPLAINT: Urinary tract infection, dehydration, dementia. HISTORY OF PRESENT ILLNESS: This gentleman is doing a little bit better. His hydration has improved. Temperature has been down. PHYSICAL EXAMINATION: Chest is clear. Cardiac exam is normal. Abdomen is soft. IMPRESSION: 1. Urinary tract infection. 2. Coronary artery disease. 3. Chronic obstructive pulmonary disease. 4. Dementia. PLAN: Continue with IV fluids and IV antibiotics. MMODL / IJN: [id number] /
[2018-12-26] MEDS: DEXTROSE 5%-0.2% NACL 1,000 ML IV SCH ×2 (04:34→13:24)
[2018-12-26] MEDS: PIPERACILLIN-TAZOBACTAM 3.375 GM in SODIUM CHLORIDE 0.9% 100 ML IVPB SCH ×2 (07:27→15:28)
[2018-12-26] MEDS: IPRATROPIUM-ALBUTEROL 3 ML NEB INHALATION SCH ×3 (09:27→20:07)
[2018-12-26] MEDS: LEVOFLOXACIN 250MG-D5W PMX 250 MG in DEXTROSE/WATER 1 50ML.BAG IVPB SCH (13:23)
--- NOTE | 2018-12-26 16:55 | PN ---
PROGRESS NOTE DATE OF SERVICE: 12/26/2018. CHIEF COMPLAINT: Dehydration, urinary tract infection and early sepsis. HISTORY OF PRESENT ILLNESS: This gentleman is doing much better. He is much more awake and alert. Hydration is improving. Significant other was in the room and we had a lengthy discussion regarding the patient's condition and prognosis. PHYSICAL EXAMINATION: Hydration is improved. Chest is clear. Cardiac exam is normal. Abdomen is soft, nontender. IMPRESSION: 1. Urinary tract infection. 2. Dehydration. 3. Dementia. PLAN: 1. Continue with IV fluids and antibiotics. 2. Discuss with the significant other the CODE STATUS. She indicates that she and the children have talked about this and want him resuscitated if he should have a cardiac arrest, but do not want him on life supports. MMODL / IJN: [id number] /
[2018-12-27] MEDS: PIPERACILLIN-TAZOBACTAM 3.375 GM in SODIUM CHLORIDE 0.9% 100 ML IVPB SCH ×3 (00:16→15:45)
[2018-12-27] MEDS: DEXTROSE 5%-0.2% NACL 1,000 ML IV SCH ×2 (00:17→13:18)
[2018-12-27] MEDS: IPRATROPIUM-ALBUTEROL 3 ML NEB INHALATION SCH ×2 (07:32→12:10)
[2018-12-27 07:34] VITALS: BP 145/79; TEMP 97.5
[2018-12-27 07:37] VITALS: RESP 16
[2018-12-27 11:59] LABS: Basophils % (A) 0 %; Eosinophils % (A) 20 %; HCT 34.6 % (39.0-53.0); HGB 11.4 gm/dL (13.0-17.5); Lymphocytes # (A) 2.4 k/uL (1.0-4.8); Lymphocytes % (A) 24 %; MCH 30.6 pg (25.0-35.0); MCHC 33.1 g/dL (31.0-37.0); MCV 92.6 fL (80.0-100.0); Monocytes # (A) 0.9 k/uL (0-1.0); Monocytes % (A) 9 %; Neutrophils # (A) 4.4 k/uL (1.3-7.7); Neutrophils % (A) 44 %; Platelet Count 377 k/uL (150-450); RBC 3.74 m/uL (4.30-5.90); RDW 14.5 % (11.5-15.5)
[2018-12-27 12:12] LABS: Albumin 3.8 g/dL (3.5-5.0); Calcium 9.8 mg/dL (8.4-10.2); Potassium 4.2 mmol/L (3.5-5.1); Total Bilirubin 0.3 mg/dL (0.2-1.3); Total Protein 7.7 g/dL (6.3-8.2)
[2018-12-27 12:13] VITALS: PULSE 69
[2018-12-27] MEDS: LEVOFLOXACIN 250MG-D5W PMX 250 MG in DEXTROSE/WATER 1 50ML.BAG IVPB SCH (13:20)
--- NOTE | 2018-12-27 13:27 | DS ---
DISCHARGE SUMMARY DATE OF DISCHARGE: 12/27/2018. CHIEF COMPLAINT: Fever, dehydration, urinary tract infection and dementia. HISTORY OF PRESENT ILLNESS AND PHYSICAL EXAM: Details of this man's history and physical can be found in the initial workup. LABORATORY STUDIES: While he was in the hospital he had laboratory studies, details of which can be found in the laboratory section of the chart. COURSE IN HOSPITAL: After admission, he was placed on bedrest, started intravenous fluids and IV antibiotics. He was rehydrated, temperature came down. He became more awake and alert. He was doing quite well and it was felt that he could be discharged [facility] to the [facility] . He will go there on his usual activity, diet, medications, and he will be on Levaquin 250 mg once a day for a period of 2 weeks. He will also will have Flomax 0.4 at bedtime added to his regimen. FINAL DIAGNOSES: 1. Urinary tract infection. 2. Dehydration. 3. Coronary artery disease. 4. Dementia. OPERATIONS: None. CONSULTATIONS: Infectious Disease and Pulmonology. He is improved. MMODL / IJN: [id number] /
--- NOTE | 2018-12-27 14:03 | PN ---
PROGRESS NOTE CHIEF COMPLAINT: Dementia, urinary tract infection. HISTORY OF PRESENT ILLNESS: This patient has been stable and temperature has been down. Before he goes back to the senior care, we will give him a trial on Flomax to see if this helps prevent frequent urinary tract infections. He has grown out Pseudomonas, which is sensitive to his Levaquin. PHYSICAL EXAMINATION: Hydration is improving and color is improved. Chest is clear. Cardiac exam is normal. Abdomen is soft, nontender. IMPRESSION: 1. Urinary tract infection with Pseudomonas. 2. Dementia. PLAN: 1. Add Flomax 0.4 once a day. 2. Probably back to senior care in the next day or 2. MMODL / IJN: [id number] /
[2018-12-27] MEDS ORDERED: TAMSULOSIN 0.4 MG CAP.ER.24H PO SCH (18:30)
--- NOTE | 2018-12-27 22:27 | MISC ---
MISCELLANOUS REPORT QUERY: Other condition: Dementia. MMODL / IJN: [id number] /
[2018-12-28] MEDS ORDERED: LEVOFLOXACIN 250 MG TAB PO SCH (12:00)
== END 2018-12-27 16:31 | DRG 871 ==
LOC: EC 17:06 → 4MS4W 20:07
PROVIDERS: ADMIT Family Medicine; ATTEND Family Medicine
DX: A41.9 Sepsis, unspecified organism (principal); J18.9 Pneumonia, unspecified organism; N39.0 Urinary tract infection, site not specified; E87.2 Acidosis; J98.11 Atelectasis; J44.0 Chronic obstructive pulmonary disease with (acute) lower respiratory infection; E86.0 Dehydration; R13.10 Dysphagia, unspecified; F03.90 Unspecified dementia, unspecified severity, without behavioral disturbance, psychotic disturbance, mood disturbance, and anxiety; B96.5 Pseudomonas (aeruginosa) (mallei) (pseudomallei) as the cause of diseases classified elsewhere; I10 Essential (primary) hypertension; R26.9 Unspecified abnormalities of gait and mobility; R32 Unspecified urinary incontinence; I25.10 Atherosclerotic heart disease of native coronary artery without angina pectoris; K21.9 Gastro-esophageal reflux disease without esophagitis; Z79.82 Long term (current) use of aspirin; Z79.899 Other long term (current) drug therapy; Z87.01 Personal history of pneumonia (recurrent); Z86.73 Personal history of transient ischemic attack (TIA), and cerebral infarction without residual deficits; Z95.1 Presence of aortocoronary bypass graft; Z87.891 Personal history of nicotine dependence; Z87.440 Personal history of urinary (tract) infections; Z99.3 Dependence on wheelchair; Z90.49 Acquired absence of other specified parts of digestive tract; Z82.49 Family history of ischemic heart disease and other diseases of the circulatory system
CPT/HCPCS: 36415; 71046; 80048; 80053; 81001; 83605; 84484; 85025; 85027; 85610; 85730; 87040; 87077; 87086; 87186; 93005; 94640; 94760; 96365; 96366; 96367; 96375; 96376; 99291

== ENCOUNTER 2019-01-22 16:00 | Inpatient (IN) | payer MEDICARE, BC ==
[2019-01-22] MEDS ORDERED: SODIUM CHLORIDE 0.9% 1,000 ML IV STA (16:21)
--- NOTE | 2019-01-22 16:26 | ED ---
SOB HPI - General Stated Complaint: DENNIS Time Seen by Provider: 01/22/19 16:00 Source: EMS, RN notes reviewed, old records reviewed Mode of arrival: EMS - History of Present Illness Initial Comments: This 88-year-old male with a recent admission for pneumonia who was brought in by EMS from a [facility] with complaints of shortness of breath and suspected aspiration pneumonia. He was getting IV antibiotics who became more dyspneic today with decreased level consciousness. Patient normally has dementia and is more confused than usual. No reports of a trauma no reports of fevers chills nausea vomiting sweats. He was receiving a nebulizer treatment upon arrival. Patient himself is a poor historian MD Complaint: shortness of breath - Related Data Home Medications Medication Instructions Recorded Confirmed Aspirin EC [Ecotrin Low Dose] 81 mg PO DAILY@0800 11/12/15 01/22/19 Metoprolol Tartrate [Lopressor] 12.5 mg PO BID 11/18/17 01/22/19 Melatonin 5 mg PO HS 05/08/18 01/22/19 Magnesium Hydroxide [Milk of 2,400 mg PO DAILY PRN 09/19/18 01/22/19 Magnesia] Ipratropium-Albuterol Nebulize 3 ml INHALATION RT-QID PRN 01/22/19 01/22/19 [Duoneb 0.5 mg-3 mg/3 ml Soln] Tamsulosin [Flomax] 0.4 mg PO HS 01/22/19 01/22/19 cefTRIAXone [Rocephin] 1 gm IVPB BID@0800,199901/22/19 01/22/19 Allergies Allergy/AdvReac Type Severity Reaction Status Date / Time No Known Allergies Allergy Verified 01/22/19 16:33 Review of Systems ROS Statement: Those systems with pertinent positive or pertinent negative responses have been documented in the HPI. ROS Other: All systems not noted in ROS Statement are negative. 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 Smoking Status: Former smoker Past Alcohol Use History: None Reported Additional Past Alcohol Use History / Comment(s): started smoking age 17(1948) and quit 1989, sig other does'nt know how much he used to smoked. Past Drug Use History: None Reported - Past Family History Father Family Medical History: Myocardial Infarction ([place]) Additional Family Medical History / Comment(s): father in his 50s General Exam - General Exam Comments Initial Comments: This is a well-developed well-nourished awake alert but lethargic male General appearance: alert, lethargic Head exam: Present: atraumatic, normocephalic, normal inspection Eye exam: Present: normal appearance, PERRL, EOMI. Absent: scleral icterus, conjunctival injection, periorbital swelling ENT exam: Present: mucous membranes dry Neck exam: Present: normal inspection, full ROM, other (No stridor JVD or bruits). Absent: tenderness, meningismus, lymphadenopathy Respiratory exam: Present: wheezes, rhonchi, accessory muscle use, decreased breath sounds Cardiovascular Exam: Present: regular rate, normal rhythm, normal heart sounds. Absent: systolic murmur, diastolic murmur, rubs, gallop, clicks GI/Abdominal exam: Present: soft, normal bowel sounds. Absent: distended, tenderness, guarding, rebound, rigid Extremities exam: Present: normal inspection, full ROM, normal capillary refill. Absent: tenderness, pedal edema, joint swelling, calf tenderness Back exam: Present: normal inspection Neurological exam: Present: alert, altered, CN II-XII intact Psychiatric exam: Present: normal mood, flat affect Skin exam: Present: warm, dry, intact, normal color. Absent: rash Course Vital Signs 01/22/19 01/22/19 01/22/19 16:27 17:30 18:19 Temperature 97.6 F Pulse Rate 90 83 80 Respiratory 20 20 Rate Blood Pressure 151/81 139/78 O2 Sat by Pulse 97 95 Oximetry Medical Decision Making - Medical Decision Making I did discuss the findings with the patient and family as well as with Dr. Hart the patient be admitted for treatment of pneumonia COPD and outpatient treatment failure - Lab Data Result diagrams: 01/22/19 16:39 01/22/19 16:39 Lab Results 01/22/19 01/22/19 01/22/19 Range/Units 16:39 16:39 16:39 WBC 13.3 H (3.8-10.6) k/uL RBC 3.97 L (4.30-5.90) m/uL Hgb 12.1 L (13.0-17.5) gm/dL Hct 37.3 L (39.0-53.0) % MCV 93.9 (80.0-100.0) fL MCH 30.5 (25.0-35.0) pg MCHC 32.5 (31.0-37.0) g/dL RDW 14.9 (11.5-15.5) % Plt Count 339 (150-450) k/uL Neutrophils % (Manual) 24 % Lymphocytes % (Manual) 51 % Monocytes % (Manual) 3 % Eosinophils % (Manual) 22 % Neutrophils # (Manual) 3.19 (1.3-7.7) k/uL Lymphocytes # (Manual) 6.78 H (1.0-4.8) k/uL Monocytes # (Manual) 0.40 (0-1.0) k/uL Eosinophils # (Manual) 2.93 H (0-0.7) k/uL Nucleated RBCs 0 (0-0) /100 WBC Manual Slide Review Performed PT (9.0-12.0) sec INR (<1.2) APTT (22.0-30.0) sec Sodium 140 (137-145) mmol/L Potassium 4.5 (3.5-5.1) mmol/L Chloride 101 (98-107) mmol/L Carbon Dioxide 27 (22-30) mmol/L Anion Gap 12 mmol/L BUN 21 H (9-20) mg/dL Creatinine 1.29 H (0.66-1.25) mg/dL Est GFR (CKD-EPI)AfAm 57 (>60 ml/min/1.73 sqM) Est GFR (CKD-EPI)NonAf 49 (>60 ml/min/1.73 sqM) Glucose 108 H (74-99) mg/dL Calcium 9.6 (8.4-10.2) mg/dL Magnesium 1.9 (1.6-2.3) mg/dL Total Bilirubin 0.3 (0.2-1.3) mg/dL AST 28 (17-59) U/L ALT 21 (21-72) U/L Alkaline Phosphatase 110 (38-126) U/L Creatine Kinase 39 L (55-170) U/L Troponin I (0.000-0.034) ng/mL NT-Pro-B Natriuret Pep 189 pg/mL Total Protein 8.2 (6.3-8.2) g/dL Albumin 4.1 (3.5-5.0) g/dL 01/22/19 01/22/19 Range/Units 16:39 16:39 WBC (3.8-10.6) k/uL RBC (4.30-5.90) m/uL Hgb (13.0-17.5) gm/dL Hct (39.0-53.0) % MCV (80.0-100.0) fL MCH (25.0-35.0) pg MCHC (31.0-37.0) g/dL RDW (11.5-15.5) % Plt Count (150-450) k/uL Neutrophils % (Manual) % Lymphocytes % (Manual) % Monocytes % (Manual) % Eosinophils % (Manual) % Neutrophils # (Manual) (1.3-7.7) k/uL Lymphocytes # (Manual) (1.0-4.8) k/uL Monocytes # (Manual) (0-1.0) k/uL Eosinophils # (Manual) (0-0.7) k/uL Nucleated RBCs (0-0) /100 WBC Manual Slide Review PT 10.2 (9.0-12.0) sec INR 0.9 (<1.2) APTT 27.7 (22.0-30.0) sec Sodium (137-145) mmol/L Potassium (3.5-5.1) mmol/L Chloride (98-107) mmol/L Carbon Dioxide (22-30) mmol/L Anion Gap mmol/L BUN (9-20) mg/dL Creatinine (0.66-1.25) mg/dL Est GFR (CKD-EPI)AfAm (>60 ml/min/1.73 sqM) Est GFR (CKD-EPI)NonAf (>60 ml/min/1.73 sqM) Glucose (74-99) mg/dL Calcium (8.4-10.2) mg/dL Magnesium (1.6-2.3) mg/dL Total Bilirubin (0.2-1.3) mg/dL AST (17-59) U/L ALT (21-72) U/L Alkaline Phosphatase (38-126) U/L Creatine Kinase (55-170) U/L Troponin I <0.012 (0.000-0.034) ng/mL NT-Pro-B Natriuret Pep pg/mL Total Protein (6.3-8.2) g/dL Albumin (3.5-5.0) g/dL - EKG Data -: EKG Interpreted by Me EKG shows normal: sinus rhythm (Sinus rhythm with sinus arrhythmia rate was 83. Interval 180 QRS duration 88 QT since QTC 388/455 evidence of old septal infarct.) - Radiology Data Radiology results: report reviewed (I did review the imaging and report evidence of bilateral infiltrates), image reviewed Disposition Clinical Impression: Pneumonia of both lower lobes, Acute exacerbation of chronic obstructive pulmonary disease, Dehydration, Failure of outpatient treatment Disposition: ADMITTED IP TO THIS HOSP Condition: Fair Referrals: Gama Hart MD [Primary Care Provider] - 1-2 days
[2019-01-22 16:59] LABS: HCT 37.3 % (39.0-53.0); HGB 12.1 gm/dL (13.0-17.5); MCH 30.5 pg (25.0-35.0); MCHC 32.5 g/dL (31.0-37.0); MCV 93.9 fL (80.0-100.0); Mean Platelet Volume 9.2; Platelet Count 339 k/uL (150-450); RBC 3.97 m/uL (4.30-5.90); RDW 14.9 % (11.5-15.5); WBC 13.3 k/uL (3.8-10.6)
[2019-01-22 17:01] LABS: INR 0.9 (<1.2); Partial Thromboplastin Time 27.7 sec (22.0-30.0); Prothrombin Time 10.2 sec (9.0-12.0)
[2019-01-22 17:10] LABS: Albumin 4.1 g/dL (3.5-5.0); Calcium 9.6 mg/dL (8.4-10.2); Magnesium 1.9 mg/dL (1.6-2.3); Potassium 4.5 mmol/L (3.5-5.1); Total Bilirubin 0.3 mg/dL (0.2-1.3); Total Protein 8.2 g/dL (6.3-8.2)
[2019-01-22 17:15] LABS: Eosinophils # (M) 2.93 k/uL (0-0.7); Lymphocytes # (M) 6.78 k/uL (1.0-4.8); Neutrophils % (M) 24 %; Nucleated Red Blood Cells 0 /100 WBC (0-0); Total Cells Counted 100
--- NOTE | 2019-01-22 17:31 | XR ---
EXAMINATION TYPE: XR chest 2V DATE OF EXAM: 01/22/2019 COMPARISON: 12/23/2018 HISTORY: Short of breath TECHNIQUE: Frontal and lateral views of the chest are obtained. FINDINGS: There is no heart failure. There is coarse interstitial infiltrate and atelectasis at the lung bases. Heart size is normal. There are sternal wires. There are no hilar masses. Thoracic aorta is atheromatous. There is mild chronic elevated right diaphragm. IMPRESSION: Mild interstitial infiltrates and atelectasis at the lung bases unchanged. There could b e partial right diaphragm paralysis. No heart failure seen. No significant change.
[2019-01-22] MEDS ORDERED: LEVOFLOXACIN 750MG-D5W PMX 750 MG in DEXTROSE/WATER 1 150ML.BAG IVPB STA (17:42)
[2019-01-22] MEDS ORDERED: methylPREDNISolone SOD SUCCI 125 MG/2 ML VIAL IV STA (17:43)
[2019-01-22] MEDS ORDERED: IPRATROPIUM-ALBUTEROL 3 ML NEB INHALATION STA (17:43)
[2019-01-22] MEDS ORDERED: PNEUMONIA PROTOCOL UTILIZED 1 EACH MISC PO PRN (18:30)
[2019-01-22] MEDS ORDERED: MAGNESIUM HYDROXIDE 2,400 MG/10 ML CUP PO PRN (18:33)
[2019-01-22] MEDS: IPRATROPIUM-ALBUTEROL 3 ML NEB INHALATION SCH ×2 (20:05→23:22)
[2019-01-22] MEDS: TAMSULOSIN 0.4 MG CAP.ER.24H PO SCH (21:08)
[2019-01-22] MEDS: SODIUM CHLORIDE 0.9% 1,000 ML IV SCH (21:08)
[2019-01-22] MEDS: MELATONIN 5 MG TABLET PO SCH (21:08)
[2019-01-22] MEDS: PIPERACILLIN-TAZOBACTAM 3.375 GM in SODIUM CHLORIDE 0.9% 100 ML IVPB SCH (21:08)
[2019-01-22] MEDS: METOPROLOL TARTRATE 12.5 MG TAB PO SCH (21:08)
[2019-01-23] MEDS: methylPREDNISolone SOD SUCCI 125 MG/2 ML VIAL IV SCH ×2 (00:48→06:19)
[2019-01-23] MEDS: IPRATROPIUM-ALBUTEROL 3 ML NEB INHALATION SCH ×5 (04:13→20:11)
[2019-01-23] MEDS: PIPERACILLIN-TAZOBACTAM 3.375 GM in SODIUM CHLORIDE 0.9% 100 ML IVPB SCH ×3 (05:23→20:00)
[2019-01-23] MEDS: SODIUM CHLORIDE 0.9% 1,000 ML IV SCH ×2 (05:46→14:33)
[2019-01-23] MEDS: METOPROLOL TARTRATE 12.5 MG TAB PO SCH ×2 (08:36→19:59)
[2019-01-23] MEDS: ASPIRIN 81 MG PO SCH (08:36)
[2019-01-23] MEDS ORDERED: IPRATROPIUM-ALBUTEROL 3 ML NEB INHALATION PRN (10:58)
[2019-01-23 11:13] LABS: HCT 35.1 % (39.0-53.0); HGB 11.6 gm/dL (13.0-17.5); MCH 31.8 pg (25.0-35.0); MCHC 33.1 g/dL (31.0-37.0); MCV 96.2 fL (80.0-100.0); Platelet Count 284 k/uL (150-450); RBC 3.65 m/uL (4.30-5.90); RDW 13.7 % (11.5-15.5); WBC 7.6 k/uL (3.8-10.6)
[2019-01-23 11:16] LABS: Albumin 3.8 g/dL (3.5-5.0); Calcium 9.7 mg/dL (8.4-10.2); Potassium 4.8 mmol/L (3.5-5.1); Total Bilirubin 0.3 mg/dL (0.2-1.3); Total Protein 7.7 g/dL (6.3-8.2)
[2019-01-23 12:50] LABS: Basophils % (A) 0 %; Eosinophils % (A) 0 %; HCT 33.9 % (39.0-53.0); HGB 11.1 gm/dL (13.0-17.5); Lymphocytes # (A) 0.8 k/uL (1.0-4.8); Lymphocytes % (A) 9 %; MCHC 32.9 g/dL (31.0-37.0); MCV 94.3 fL (80.0-100.0); Mean Platelet Volume 9.4; Monocytes # (A) 0.2 k/uL (0-1.0); Monocytes % (A) 3 %; Neutrophils # (A) 7.9 k/uL (1.3-7.7); Neutrophils % (A) 87 %; Platelet Count 289 k/uL (150-450); RBC 3.59 m/uL (4.30-5.90); RDW 14.1 % (11.5-15.5); WBC 9.1 k/uL (3.8-10.6)
--- NOTE | 2019-01-23 12:58 | XR ---
EXAMINATION TYPE: XR chest 1V DATE OF EXAM: 01/23/2019 COMPARISON: Prior chest x-ray 01/22/2018 HISTORY: Pneumonia TECHNIQUE: Single frontal view of the chest is obtained. FINDINGS: Patient is rotated and post median sternotomy. Subsegmental atelectatic changes are presen t at the lung bases versus possible scarring, difficult to exclude airspace disease. Heart size is st able. Aorta is dense. Midline catheter present in the left upper extremity. No pneumothorax or eviden t effusion. Perihilar increased density and prominence of interstitium is noted. 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 IMPRESSION: Correlate for asbestos related disease. There may be interstitial edema, possible scarri ng or atelectasis, pneumonia not excluded.
[2019-01-23 13:02] LABS: Albumin 3.7 g/dL (3.5-5.0); Calcium 9.4 mg/dL (8.4-10.2); Potassium 4.4 mmol/L (3.5-5.1); Total Bilirubin 0.2 mg/dL (0.2-1.3); Total Protein 7.5 g/dL (6.3-8.2)
[2019-01-23 13:14] LABS: Appearance,Urine Clear (Clear); Bilirubin,Urine Negative (Negative); Blood,Urine Negative (Negative); Color,Urine Light Yellow; Glucose,Urine (UA) Negative (Negative); Ketones,Urine Negative (Negative); Leukocyte Esterase,Urine Negative (Negative); Nitrite,Urine Negative (Negative); Protein,Urine Negative (Negative); Specific Gravity,Urine 1.009 (1.001-1.035); Urobilinogen,Urine <2.0 mg/dL (<2.0)
--- NOTE | 2019-01-23 15:20 | PN ---
PROGRESS NOTE DATE OF SERVICE: 01/23/2019 CHIEF COMPLAINT: Bronchopneumonia. HISTORY OF PRESENT ILLNESS: This gentleman seems stable so far. He is awake and alert, but in his usual confused state. Skin is dry. He is dehydrated. Chest demonstrated shallow breath sounds with crackles throughout. There are occasional rhonchi. The cardiac exam is normal and the abdomen is soft, nontender. The extremities are normal. IMPRESSION: 1. Bilateral lower lobe bronchopneumonia. 2. Frequent urinary tract infections. 3. Dementia. 4. History of coronary artery disease. 5. History of hypertension. PLAN: Continue with IV fluids and antibiotics as well as updrafts and he is being seen by Pulmonology. MMODL / IJN: [id number] /
--- NOTE | 2019-01-23 15:20 | HP ---
HISTORY AND PHYSICAL CHIEF COMPLAINT: Shortness of breath. HISTORY OF PRESENT ILLNESS: This is another admission for this 88-year-old white male from [facility]. He is noticed to be somewhat short of breath and he was sent to emergency room where he was diagnosed as having bilateral lower lobe pneumonia. His usual problem is urinary tract infection. He has profound dementia. He has had an old history of CAD, but has otherwise been healthy. REVIEW OF SYSTEMS: Unobtainable. PAST MEDICAL HISTORY, FAMILY HISTORY AND PERSONAL AND SOCIAL HISTORIES: Are all unobtainable other than details that can be found in the documentation from the intermediate. PHYSICAL EXAMINATION: Blood pressure is 165/100 with a pulse of 88, respirations of 34, and temperature 99.1. In general, he appeared to be slightly dehydrated. Skin color is normal. Head, ears, eyes, nose, mouth, and throat were normal. Chest demonstrated decreased breath sounds throughout with scattered rales and rhonchi at both bases. Cardiac exam demonstrated sinus tachycardia and the abdomen is soft. Extremities are normal. IMPRESSION: 1. Bilateral lower lobe bronchopneumonia. 2. History of frequent urinary tract infections. 3. Dementia. 4. History of coronary artery disease. PLAN: 1. Bed rest. 2. IV fluids. 3. IV antibiotics. 4. Updrafts. MMODL / IJN: [id number] /
[2019-01-23] MEDS: MELATONIN 5 MG TABLET PO SCH (19:59)
[2019-01-23] MEDS: TAMSULOSIN 0.4 MG CAP.ER.24H PO SCH (19:59)
[2019-01-23] MEDS: BUDESONIDE 1 MG/2 ML NEBU INHALATION SCH (20:12)
[2019-01-23] MEDS: FORMOTEROL FUMARATE 20 MCG/2 ML NEBU INHALATION SCH (20:12)
--- NOTE | 2019-01-23 21:44 | CONS ---
CONSULTATION DATE OF SERVICE: 01/23/2019 Pulmonary/Critical care consultation dated January 23, 2019. This is a 88-year-old demented male who resides permanently at a local long term. He apparently was noted by the nursing staff to have some difficulty breathing and lower saturation. He also apparently was found to be tachypneic and had chest congestion. For that reason, he was sent in by EMS to be evaluated. The patient is accompanied by his significant other. The patient himself really cannot answer any questions. His significant other, does answer questions for us. He apparently does reside at the long term. He has been there for a long period of time since May of this year. He apparently is going to be permanent resident of a long term when he gets well if he is able to leave the hospital. Anyway, the patient does suffer from severe dementia. Again, he was seen in the ER and apparently thought to have pneumonia. It looks like he probably aspirated. The significant other tells us that he does not eat on his own. She feeds him. He does choke on his food, particularly with liquids as opposed to solids. Anyway, the patient likely aspirated and has a healthcare acquired aspiration pneumonia. The patient again as I mentioned, is demented and unable to give any additional history. The patient is currently on some nasal O2 at 2 L. Does not appear to be having any respiratory difficulty or distress. CHEST X-RAY: Evaluation appears that showed infiltrate in the right middle lobe, right lower lobe, probably consistent with aspiration. MEDICATIONS: His home medications include aspirin, metoprolol, melatonin, milk of magnesia, DuoNeb, Flomax, Rocephin. ALLERGIES: Allergies are denied. MEDICAL HISTORY: Include CAD, COPD, CVA, dementia, GERD, hypertension, hypertriglyceridemia, iliac artery aneurysm, vertigo and a left lung mass for which he sees Dr. Diaz. SURGICAL HISTORY: Includes appendectomy, cholecystectomy, bypass grafting. SOCIAL HISTORY: Positive for previous tobacco use. Denies any alcohol. No illicit drug use. He apparently started smoking when he was 17 in 1948 and quit in 1989. That gives him about 42 years of tobacco use. FAMILY HISTORY: Positive for father with myocardial infarction. Father prematurely. REVIEW OF SYSTEMS: As best can be derived from the significant other. CONSTITUTIONAL negative. NEUROLOGICAL: Negative. HEENT negative. CARDIOVASCULAR negative. PULMONARY: Chest congestion, shortness of breath, decreased saturations. GI negative. negative. RHEUMATOLOGIC negative. IMMUNOLOGIC negative. ENDOCRINOLOGIC negative. DERMATOLOGIC negative. PHYSICAL EXAMINATION: VITAL SIGNS: Current vital signs include a temperature which is 97.5. Heart rate which is 80. Respiratory rate 18, blood pressure 130/63, 2 L saturation 100%. Appears in no acute distress. HEENT examination is grossly unremarkable. Nasal O2 in place. Mucous membranes are dry. NECK: Supple. Full range of motion. No adenopathy. Neck veins are flat. No thyromegaly. CARDIOVASCULAR examination reveals regular rhythm and rate. Heart rate 80. S1, S2 normal. Heart sounds are distant. No distinct murmur. LUNGS: Reveal mostly clear breath sounds. A few scattered rhonchi. No wheezes or crackles. Breath sounds equal. ABDOMEN: Soft. Bowel sounds are heard. EXTREMITIES are intact. No edema. SKIN: Without rash. NEUROLOGIC examination is difficult to assess as the patient is quite demented. He does not answer questions or follow directions or the instructions. He does move all 4 extremities. X-RAY: Chest x-ray on the , compared to the one done prior suggests the possibility of a right lower lobe or right middle lobe infiltrate. There are some changes of atelectasis and scarring noted. It is difficult to exclude airspace disease. CURRENT LABORATORY DATA: Reviewed. White count 9.1, hemoglobin 11.1, hematocrit 33.9, platelet count 289,000. Sodium 139, potassium 4.4. Chloride 104, CO2 20, anion gap is 15. BUN 24 and creatinine 1.24. His lactic acid was 5.9 and then down to 5.3. The rest of his comprehensive metabolic profile is okay. His urine is clean. Current medications are reviewed. The patient is on Pulmicort, DuoNeb, Levaquin and Zosyn. The other medications are all his typical and/or usual medications. The patient is also on formoterol as well mixed with Pulmicort twice a day. From the pulmonary standpoint, he is on more than adequate medication. ASSESSMENT: 1. Probable aspiration pneumonia, healthcare acquired. 2. Previous history of 42 years of tobacco use, quit in 1989. 3. History of coronary artery disease with previous bypass grafting. 4. History of cerebrovascular accident. 5. History of dementia. 6. Gastroesophageal reflux disease. 7. Hypertension. 8. History of vertigo. 9. History of iliac artery aneurysm. 10.Hypertriglyceridemia. PLAN: The patient is placed on appropriate updrafts and also on antibiotics. We will continue to follow. Prognosis is guarded. I did broach the subject of code status with significant other. She apparently is a proxy decision maker. She states that he would agree to short-term mechanical ventilation, but would not agree to anything long- term and likely would not agree to a tracheostomy or PEG tube placement. We will continue to follow. Head of bed elevated at all times. Aspiration precautions. MMODL / IJN: [id number] /
[2019-01-24] MEDS: SODIUM CHLORIDE 0.9% 1,000 ML IV SCH ×3 (02:25→21:13)
[2019-01-24] MEDS: PIPERACILLIN-TAZOBACTAM 3.375 GM in SODIUM CHLORIDE 0.9% 100 ML IVPB SCH ×3 (04:23→21:13)
[2019-01-24] MEDS: BUDESONIDE 1 MG/2 ML NEBU INHALATION SCH ×2 (07:16→20:09)
[2019-01-24] MEDS: FORMOTEROL FUMARATE 20 MCG/2 ML NEBU INHALATION SCH ×2 (07:16→20:09)
[2019-01-24] MEDS: IPRATROPIUM-ALBUTEROL 3 ML NEB INHALATION SCH ×5 (07:16→20:09)
[2019-01-24] MEDS: ASPIRIN 81 MG PO SCH (07:33)
[2019-01-24] MEDS: METOPROLOL TARTRATE 12.5 MG TAB PO SCH ×2 (07:33→21:13)
[2019-01-24 08:05] LABS: HCT 29.5 % (39.0-53.0); HGB 9.9 gm/dL (13.0-17.5); MCH 31.7 pg (25.0-35.0); MCHC 33.4 g/dL (31.0-37.0); MCV 94.7 fL (80.0-100.0); Mean Platelet Volume 9.9; Platelet Count 265 k/uL (150-450); RBC 3.12 m/uL (4.30-5.90); RDW 14.1 % (11.5-15.5); WBC 10.7 k/uL (3.8-10.6)
[2019-01-24 08:21] LABS: Albumin 3.3 g/dL (3.5-5.0); Potassium 3.9 mmol/L (3.5-5.1); Total Bilirubin 0.3 mg/dL (0.2-1.3); Total Protein 6.7 g/dL (6.3-8.2)
--- NOTE | 2019-01-24 09:54 | P.CONS ---
History of Present Illness - Reason for Consult Consult date: 01/23/19 Pneumonitis Requesting physician: Gama Hart - Chief Complaint Shortness of breath and congested cough x few days - History of Present Illness Patient is 88-year-old male with a past medical history significant for dementia patient is currently a care home resident patient has been sent to the ER at [facility] after the patient was noticed to have increasing shortness of breath low O2 sats at the care home the patient did have a congested cough his symptom has been going on for a day or 2 before presentation to the hospital the patient did have a modified diet but do have occasional coughing episodes especially when the patient is fed liquids with the symptom for the patient was evaluated by the ER physician patient did have a chest x-ray with evidence of bilateral infiltrate he did not have any fever though have elevated white count of 13,000 with concern for possible healthcare associated pneumonia the patient was started on Zosyn and Levaquin infection disease was consulted for further recommendation regarding antibiotic most of the information has been obtained from the family and the patient's chart as the patient himself is unable to provide a reliable history Review of Systems Positive points has been mentioned in HPI complete review could not be obtained because of the patient mental status 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 Smoking Status: Former smoker Past Alcohol Use History: None Reported Additional Past Alcohol Use History / Comment(s): started smoking age 17(1948) and quit 1989, sig other does'nt know how much he used to smoked. Past Drug Use History: None Reported - Past Family History Father Family Medical History: Myocardial Infarction ([place]) Additional Family Medical History / Comment(s): father in his 50s Medications and Allergies Home Medications Medication Instructions Recorded Confirmed Type Aspirin EC [Ecotrin Low Dose] 81 mg PO DAILY@0800 11/12/15 01/22/19 History Metoprolol Tartrate [Lopressor] 12.5 mg PO BID 11/18/17 01/22/19 History Melatonin 5 mg PO HS 05/08/18 01/22/19 History Magnesium Hydroxide [Milk of 2,400 mg PO DAILY PRN 09/19/18 01/22/19 History Magnesia] Ipratropium-Albuterol Nebulize 3 ml INHALATION RT-QID PRN 01/22/19 01/22/19 History [Duoneb 0.5 mg-3 mg/3 ml Soln] Tamsulosin [Flomax] 0.4 mg PO HS 01/22/19 01/22/19 History cefTRIAXone [Rocephin] 1 gm IVPB BID@0800,199901/22/19 01/22/19 History Allergies Allergy/AdvReac Type Severity Reaction Status Date / Time No Known Allergies Allergy Verified 01/22/19 16:33 Physical Exam Vitals: Vital Signs Temp Pulse Pulse Resp BP Pulse Ox 01/23/19 20:35 98.8 F 108 H 20 102/50 95 01/23/19 20:24 80 01/23/19 20:12 80 01/23/19 15:52 80 01/23/19 15:47 84 01/23/19 12:04 97.5 F L 96 18 130/63 100 01/23/19 11:48 80 01/23/19 11:39 76 01/23/19 08:00 84 01/23/19 07:46 88 01/23/19 04:55 97.0 F L 101 H 16 106/66 98 01/23/19 04:23 80 01/23/19 04:13 76 Intake and Output 01/23/19 01/23/19 01/24/19 14:59 22:59 06:59 Intake Total 125 240 Balance 125 240 Intake: Oral 125 240 Other: # Voids 1 1 GENERAL DESCRIPTION: Elderly male lying in bed, no distress. No tachypnea or accessory muscle of respiration use. HEENT: Shows Pallor , no scleral icterus. Oral mucous membrane is dry. No pharyngeal erythema or thrush NECK: Trachea central, no thyromegaly. LUNGS: Unlabored breathing. Coarse breath sounds bilaterally. No wheeze or crackle. HEART: S1, S2, regular rate and rhythm. No loud murmur ABDOMEN: Soft, no tenderness , guarding or rigidity, no organomegaly EXTREMITIES: No edema of feet. SKIN: No rash, no masses palpable. NEUROLOGICAL: The patient is awake, alert, oriented x1, mood and affect normal. Results CBC & Chem 7: 01/24/19 07:43 01/24/19 07:43 Labs: Abnormal Lab Results - Last 24 Hours (Table) 01/23/19 01/23/19 01/23/19 Range/Units 03:24 08:13 08:13 RBC 3.65 L (4.30-5.90) m/uL Hgb 11.6 L (13.0-17.5) gm/dL Hct 35.1 L (39.0-53.0) % Neutrophils # (1.3-7.7) k/uL Lymphocytes # (1.0-4.8) k/uL Carbon Dioxide (22-30) mmol/L BUN (9-20) mg/dL Glucose (74-99) mg/dL Plasma Lactic Acid Keith 3.9 H* 5.9 H* (0.7-2.0) mmol/L ALT (21-72) U/L 01/23/19 01/23/19 01/23/19 Range/Units 08:13 12:25 12:25 RBC 3.59 L (4.30-5.90) m/uL Hgb 11.1 L (13.0-17.5) gm/dL Hct 33.9 L (39.0-53.0) % Neutrophils # 7.9 H (1.3-7.7) k/uL Lymphocytes # 0.8 L (1.0-4.8) k/uL Carbon Dioxide 17 L (22-30) mmol/L BUN 22 H (9-20) mg/dL Glucose 175 H (74-99) mg/dL Plasma Lactic Acid Keith 5.3 H* (0.7-2.0) mmol/L ALT 15 L (21-72) U/L 01/23/19 01/23/19 01/23/19 Range/Units 12:25 16:38 20:18 RBC (4.30-5.90) m/uL Hgb (13.0-17.5) gm/dL Hct (39.0-53.0) % Neutrophils # (1.3-7.7) k/uL Lymphocytes # (1.0-4.8) k/uL Carbon Dioxide 20 L (22-30) mmol/L BUN 24 H (9-20) mg/dL Glucose 185 H (74-99) mg/dL Plasma Lactic Acid Keith 5.8 H* 4.1 H* (0.7-2.0) mmol/L ALT 18 L (21-72) U/L Microbiology - Last 24 Hours (Table) 01/22/19 16:39 Blood Culture - Preliminary Blood No Growth after 24 hours Assessment and Plan Assessment: 1-patient presented to the hospital with increasing shortness of breath or hypoxemia congested cough in this patient did have evidence of bilateral basal infiltrate more on the right side with concern for aspiration pneumonia being a care home resident will need to cover for resistant gram-negative such as Pseudomonas and related to gram-negative bacteria (1) Aspiration pneumonia Current Visit: Yes Status: Acute Code(s): J69.0 - PNEUMONITIS DUE TO INHALATION OF FOOD AND VOMIT SNOMED Code(s): 849552144 Plan: 1-we will try to obtain sputum for Gram stain and culture 2-aspiration precautions 3-Zosyn 3.375 g every 8 hours we will follow on clinical condition and culture to further adjust medication if needed Thank you for this consultation will follow this patient along with you Family at the bedside the question and concerns were answered Time with Patient: Greater than 30
--- NOTE | 2019-01-24 10:25 | XR ---
EXAMINATION TYPE: XR chest 2V DATE OF EXAM: 01/24/2019 COMPARISON: 01/23/2019 HISTORY: Shortness of breath TECHNIQUE: Frontal and lateral views of the chest are obtained. FINDINGS: Scattered senescent parenchymal changes noted. Hyperinflation compatible with COPD. Patchy basilar infiltrates noted. Pulmonary venous congestion. Findings progressive since prior exami nation. Heart size is stable. Mediastinal structures are stable and grossly unremarkable. No evidence for hilar prominence. Degenerative changes dorsal spine. IMPRESSION: 1. Patchy basilar infiltrates noted. Pulmonary venous congestion. Findings progressive since prior ex amination.
--- NOTE | 2019-01-24 11:51 | P.PN ---
Subjective Progress Note Date: 01/24/19 Principal diagnosis: Probable aspiration pneumonia On 01/24/2019 patient seen in follow-up on medical surgical floor. he is lethargic, his is not at the bedside. Does not appear to be in any acute distress, remains on 2 L of oxygen his pulse ox is 95%, no fever, hemodynam ically remains stable, lung sounds reveal diminished breath sounds with scattered rhonchi, patient is at extremely poor historian, but no episodes of hemoptysis have been reported by nursing staff or episodes of increasing difficulty breathing. No acute events overnight. Blood culture showed no gr owth. Today's labs have been reviewed, showing white blood cell count of 10.7, hemoglobin of 9.9, serum sodium of 141, potassium 6.9, chloride is 110, B1 of 29 and creatinine is 1.34. Lactic acid came down to 1.8. Patient is on a combination of Zosyn and Levaquin, Pulmicort, Perforomist and breathing treatments. Objective - Vital Signs Vital signs: Vital Signs Temp 97.8 F 01/24/19 04:35 Pulse 80 01/24/19 11:06 Resp 20 01/24/19 04:35 BP 176/51 01/24/19 04:35 Pulse Ox 95 01/24/19 04:35 Intake & Output 01/23/19 01/24/19 01/24/19 18:59 06:59 18:59 Intake Total 365 118 Balance 365 118 Intake: Oral 365 118 Other: # Voids 2 3 - Exam GENERAL EXAM: Lethargic, 88-year-old white male, resting in bed, currently on 2 L of oxygen comfortable in no apparent distress. HEAD: Normocephalic/atraumatic. EYES: Normal reaction of pupils, equal size. Conjunctiva pink, sclera white. NOSE: Clear with pink turbinates. THROAT: No erythema or exudates. NECK: No masses, no JVD, no thyroid enlargement, no adenopathy. CHEST: No chest wall deformity. Symmetrical expansion. LUNGS: Equal air entry with scattered rhonchi, diminished breath sounds at the bases CVS: Regular rate and rhythm, normal S1 and S2, no gallops, no murmurs, no rubs ABDOMEN: Soft, nontender. No hepatosplenomegaly, normal bowel sounds, no guarding or rigidity. EXTREMITIES: No clubbing, no edema, no cyanosis, 2+ pulses and upper and lower extremities. MUSCULOSKELETAL: Muscle strength and tone normal. SPINE: No scoliosis or deformity SKIN: No rashes CENTRAL NERVOUS SYSTEM: Lethargic, oriented to 0. No focal deficits, tone is normal in all 4 extremities. - Labs CBC & Chem 7: 01/24/19 07:43 01/24/19 07:43 Labs: Abnormal Lab Results - Last 24 Hours (Table) 01/23/19 01/23/19 01/23/19 Range/Units 12:25 12:25 12:25 WBC (3.8-10.6) k/uL RBC 3.59 L (4.30-5.90) m/uL Hgb 11.1 L (13.0-17.5) gm/dL Hct 33.9 L (39.0-53.0) % Neutrophils # 7.9 H (1.3-7.7) k/uL Lymphocytes # 0.8 L (1.0-4.8) k/uL Chloride (98-107) mmol/L Carbon Dioxide 20 L (22-30) mmol/L BUN 24 H (9-20) mg/dL Creatinine (0.66-1.25) mg/dL Glucose 185 H (74-99) mg/dL Plasma Lactic Acid Keith 5.3 H* (0.7-2.0) mmol/L ALT 18 L (21-72) U/L Albumin (3.5-5.0) g/dL 01/23/19 01/23/19 01/24/19 Range/Units 16:38 20:18 07:43 WBC 10.7 H (3.8-10.6) k/uL RBC 3.12 L (4.30-5.90) m/uL Hgb 9.9 L (13.0-17.5) gm/dL Hct 29.5 L (39.0-53.0) % Neutrophils # (1.3-7.7) k/uL Lymphocytes # (1.0-4.8) k/uL Chloride (98-107) mmol/L Carbon Dioxide (22-30) mmol/L BUN (9-20) mg/dL Creatinine (0.66-1.25) mg/dL Glucose (74-99) mg/dL Plasma Lactic Acid Keith 5.8 H* 4.1 H* (0.7-2.0) mmol/L ALT (21-72) U/L Albumin (3.5-5.0) g/dL 01/24/19 Range/Units 07:43 WBC (3.8-10.6) k/uL RBC (4.30-5.90) m/uL Hgb (13.0-17.5) gm/dL Hct (39.0-53.0) % Neutrophils # (1.3-7.7) k/uL Lymphocytes # (1.0-4.8) k/uL Chloride 110 H (98-107) mmol/L Carbon Dioxide (22-30) mmol/L BUN 29 H (9-20) mg/dL Creatinine 1.34 H (0.66-1.25) mg/dL Glucose 103 H (74-99) mg/dL Plasma Lactic Acid Keith (0.7-2.0) mmol/L ALT (21-72) U/L Albumin 3.3 L (3.5-5.0) g/dL Microbiology - Last 24 Hours (Table) 01/22/19 16:39 Blood Culture - Preliminary Blood No Growth after 24 hours Assessment and Plan Plan: Assessment: #1. Acute aspiration pneumonia versus healthcare acquired pneumonia #2. Anion gap metabolic acidosis related to lactic acidosis, improved with IV hydration #3. Acute kidney injury related to ATN #4. History of recurrent urinary tract infections #5. Dysphagia on modified diet, risk for aspiration related to advanced dementia #6. History of COPD #7. History of CVA/TIA #8. Advanced dementia #9. Gait dysfunction, wheelchair-bound, resides at a local [facility] #10. Hypertension #11. Former smoker #12. History of coronary artery disease status post bypass grafting Plan: Maintain aspiration precautions, continue with modified diet, and supervision with meals, vital signs are stable, there have been no fevers, blood cultures show no growth. From pulmonary perspective patient is stable, lactic acid has been down to normal range. Today's chest x-ray has been reviewed showing patchy basilar infiltrates, pulmonary venous congestion, somewhat progressed from prior study, but clinically patient is stable, oxygenation is stable, overall prognosis is poor, we spoke to the patient's significant other regarding his CODE STATUS and according to her, patient would want resuscitation, and pl acement on a short-term life-support. But in view of his advanced dementia, multiple comorbidities, recurrent hospitalizations, severe medical debility, with the patient through resuscitation and life support would not be recommended. Stable for discharge back to the [facility] today I performed a history & physical examination of the patient and discussed their management with my nurse practitioner, Heike Key. I reviewed the nurse practitioner's note and agree with the documented findings and plan of care. Lung sounds are positive for diminished breath sounds with some scattered rhonchi throughout the lung gonzalez. The findings and the impression was discussed with the patient. I attest to the documentation by the nurse practitioner. Time with Patient: Less than 30
[2019-01-24] MEDS: LEVOFLOXACIN 750 MG TAB PO SCH (17:55)
[2019-01-24] MEDS ORDERED: LEVOFLOXACIN 750MG-D5W PMX 750 MG in DEXTROSE/WATER 1 150ML.BAG IVPB SCH (19:00)
--- NOTE | 2019-01-24 20:06 | PN ---
PROGRESS NOTE DATE OF SERVICE: 01/24/2019 REASON FOR FOLLOWUP: Aspiration pneumonia. INTERVAL HISTORY: The patient is currently afebrile. The patient is not as sedated as yesterday, per the family at the bedside. The patient was being fed; mentioned no significant coughing or choking while being fed. No nausea, vomiting or any diarrhea reported. Patient himself was unable to provide any history. PHYSICAL EXAMINATION: Blood pressure 114/70 with a pulse of 73, temperature of 98. He is 93% on room air. General description is an elderly male up in the bed in no distress. RESPIRATORY SYSTEM: Unlabored breathing with decreased breath sounds at the base. No wheeze. HEART: S1, S2. Regular rate and rhythm. ABDOMEN: Soft. No tenderness. LABS: Hemoglobin is 9.9, white count 10.7, BUN of 29, creatinine 1.34. DIAGNOSTIC IMPRESSION AND PLAN: Patient admitted to hospital with congested cough, hypoxemia and shortness of breath with evidence of bilateral infiltrates and concern for possible gram-negative aspiration pneumonia. Patient is currently covered with Zosyn; to continue. Try to obtain a sputum culture to narrow down antibiotics and continue supportive care. MMODL / IJN: [id number] /
[2019-01-24] MEDS: MELATONIN 5 MG TABLET PO SCH (21:12)
[2019-01-24] MEDS: TAMSULOSIN 0.4 MG CAP.ER.24H PO SCH (21:12)
--- NOTE | 2019-01-24 22:09 | PN ---
PROGRESS NOTE CHIEF COMPLAINT: Pneumonitis, dehydration. Dementia. HISTORY OF PRESENT ILLNESS: The patient is becoming a bit more alert. He, of course, remains very confused. Temperature has been down. PHYSICAL EXAM: Skin turgor is improved. Chest is fairly clear with only occasional rales and rhonchi. Cardiac exam is normal. Abdomen is soft. IMPRESSION: 1. Bronchial pneumonia. 2. Dehydration. 3. Dementia. 4. Coronary artery disease. PLAN: Continue with IV fluids, antibiotics and updrafts and await for urine culture report. MMODL / IJN: [id number] /
[2019-01-25] MEDS: PIPERACILLIN-TAZOBACTAM 3.375 GM in SODIUM CHLORIDE 0.9% 100 ML IVPB SCH ×3 (04:20→21:08)
[2019-01-25] MEDS: SODIUM CHLORIDE 0.9% 1,000 ML IV SCH ×2 (05:25→16:44)
[2019-01-25] MEDS: IPRATROPIUM-ALBUTEROL 3 ML NEB INHALATION SCH ×4 (07:19→20:24)
[2019-01-25] MEDS: FORMOTEROL FUMARATE 20 MCG/2 ML NEBU INHALATION SCH ×2 (07:19→20:24)
[2019-01-25] MEDS: BUDESONIDE 1 MG/2 ML NEBU INHALATION SCH ×2 (07:20→20:24)
[2019-01-25] MEDS: METOPROLOL TARTRATE 12.5 MG TAB PO SCH ×2 (07:23→21:08)
[2019-01-25] MEDS: ASPIRIN 81 MG PO SCH (07:23)
--- NOTE | 2019-01-25 11:22 | PN ---
PROGRESS NOTE CHIEF COMPLAINT: Pneumonitis. HISTORY OF PRESENT ILLNESS: This gentleman is improving. Breathing is improving. PHYSICAL EXAMINATION: He is afebrile. Chest is fairly clear except for occasional rales and rhonchi. Cardiac exam is normal. Abdomen is soft. IMPRESSION: 1. Pneumonitis. 2. Dehydration. 3. Dementia. PLAN: Continue with IV fluids, antibiotics and updrafts and probably back to the [facility] the first of the week. MMODL / IJN: [id number] /
[2019-01-25] MEDS: MELATONIN 5 MG TABLET PO SCH (21:08)
[2019-01-25] MEDS: TAMSULOSIN 0.4 MG CAP.ER.24H PO SCH (21:08)
[2019-01-26] MEDS: PIPERACILLIN-TAZOBACTAM 3.375 GM in SODIUM CHLORIDE 0.9% 100 ML IVPB SCH ×3 (03:09→20:52)
[2019-01-26] MEDS: METOPROLOL TARTRATE 12.5 MG TAB PO SCH ×2 (07:11→20:51)
[2019-01-26] MEDS: ASPIRIN 81 MG PO SCH (07:11)
[2019-01-26] MEDS: FORMOTEROL FUMARATE 20 MCG/2 ML NEBU INHALATION SCH ×2 (07:30→19:29)
[2019-01-26] MEDS: BUDESONIDE 1 MG/2 ML NEBU INHALATION SCH ×2 (07:30→19:29)
[2019-01-26] MEDS: IPRATROPIUM-ALBUTEROL 3 ML NEB INHALATION SCH ×4 (07:50→19:29)
[2019-01-26] MEDS: SODIUM CHLORIDE 0.9% 1,000 ML IV SCH (17:21)
[2019-01-26] MEDS: MELATONIN 5 MG TABLET PO SCH (20:51)
[2019-01-26] MEDS: LEVOFLOXACIN 750 MG TAB PO SCH (20:51)
[2019-01-26] MEDS: TAMSULOSIN 0.4 MG CAP.ER.24H PO SCH (20:52)
--- NOTE | 2019-01-27 00:33 | PN ---
PROGRESS NOTE DATE OF SERVICE: 01/26/2019. REASON FOR FOLLOWUP: Pneumonia possible aspiration. INTERVAL HISTORY: The patient is currently afebrile. The patient has been breathing comfortably. Denies having any chest pain. He did have a congested cough, not bringing up any sputum. No nausea, vomiting or diarrhea reported by the nursing staff. PHYSICAL EXAMINATION: Blood pressure 128/64 with a pulse of 71, temperature 96.6. He is 97% on room air. General description is an elderly male lying in bed in no distress. Respiratory system: Unlabored breathing, decreased breath sounds in the bases. No wheeze. Heart S1, S2. Regular rate and rhythm. ABDOMEN: Soft, no tenderness. LABS: Hemoglobin is 9.8, white count 10.7, creatinine 1.34. Blood cultures have been negative. Sputum not provided. DIAGNOSTIC IMPRESSION AND PLAN: Patient admitted to the hospital with congestion, cough with concern for pneumonia, likely aspiration, possible gram-negative. Currently covered with Zosyn. Will try to obtain a sputum to narrow down his antibiotics and continue supportive care. MMODL / IJN: [id number] /
[2019-01-27] MEDS: PIPERACILLIN-TAZOBACTAM 3.375 GM in SODIUM CHLORIDE 0.9% 100 ML IVPB SCH ×3 (04:05→20:34)
[2019-01-27] MEDS: FORMOTEROL FUMARATE 20 MCG/2 ML NEBU INHALATION SCH ×2 (07:10→21:07)
[2019-01-27] MEDS: BUDESONIDE 1 MG/2 ML NEBU INHALATION SCH ×2 (07:10→21:07)
[2019-01-27] MEDS: IPRATROPIUM-ALBUTEROL 3 ML NEB INHALATION SCH ×4 (07:10→21:07)
[2019-01-27] MEDS: ASPIRIN 81 MG PO SCH (08:24)
[2019-01-27] MEDS: METOPROLOL TARTRATE 12.5 MG TAB PO SCH ×2 (08:24→20:31)
[2019-01-27] MEDS: SODIUM CHLORIDE 0.9% 1,000 ML IV SCH (17:46)
[2019-01-27 18:44] LABS: Basophils # (A) 0.1 k/uL (0-0.2); Basophils % (A) 1 %; Eosinophils # (A) 1.7 k/uL (0-0.7); Eosinophils % (A) 15 %; HCT 33.9 % (39.0-53.0); HGB 11.6 gm/dL (13.0-17.5); Lymphocytes # (A) 1.9 k/uL (1.0-4.8); Lymphocytes % (A) 17 %; MCH 31.5 pg (25.0-35.0); MCHC 34.1 g/dL (31.0-37.0); MCV 92.2 fL (80.0-100.0); Mean Platelet Volume 9.7; Monocytes # (A) 0.7 k/uL (0-1.0); Monocytes % (A) 6 %; Neutrophils # (A) 6.3 k/uL (1.3-7.7); Neutrophils % (A) 58 %; Platelet Count 288 k/uL (150-450); RBC 3.67 m/uL (4.30-5.90); RDW 14.5 % (11.5-15.5); WBC 10.9 k/uL (3.8-10.6)
[2019-01-27 18:54] LABS: Albumin 3.6 g/dL (3.5-5.0); Calcium 9.3 mg/dL (8.4-10.2); Potassium 4.4 mmol/L (3.5-5.1); Total Bilirubin 0.5 mg/dL (0.2-1.3); Total Protein 7.2 g/dL (6.3-8.2)
--- NOTE | 2019-01-27 19:07 | PN ---
PROGRESS NOTE DATE OF SERVICE: 01/27/2019. REASON FOR FOLLOWUP: Aspiration pneumonia. INTERVAL HISTORY: The patient is currently afebrile. Patient has been breathing comfortably. Denies having any chest pain. Complaining of some cough. Not able to eloborate any further. No nausea, vomiting or diarrhea reported by the nursing staff. PHYSICAL EXAMINATION: Blood pressure 116/66, pulse of 68, temperature is 97.4. He is 92% on room air. General description is an elderly male lying in bed in no distress. Respiratory system: Unlabored breathing. Decreased breath sounds in the bases. No wheeze. Heart S1, S2. Regular rate and rhythm. Abdomen soft, no tenderness. LABS: Hemoglobin is 9.8, white count 10.7, BUN of 29, creatinine is 1.34. Blood culture has been negative. DIAGNOSTIC IMPRESSION AND PLAN: Patient admitted to hospital, this patient did have evidence of pneumonia possible aspiration etiology. The patient currently covered with Zosyn. We will try to obtain a sputum to narrow down his antibiotics. Monitor clinical course closely. Continue supportive care. MMODL / IJN: [id number] / MTDD
--- NOTE | 2019-01-27 19:23 | XR ---
EXAMINATION TYPE: XR chest 1V DATE OF EXAM: 01/27/2019 COMPARISON: 01/24/2019 HISTORY: Pneumonia. Chest pain. TECHNIQUE: Single frontal view of the chest is obtained. FINDINGS: Heart size is fairly normal. There is coarse interstitial density in both lungs. There is probably some mild airspace infiltrate right lower lobe. There are sternal wires. There is no gross h eart failure. IMPRESSION: There is partial clearing of right lower lobe pneumonia and atelectasis compared to rece nt exam. No gross heart failure. There is probably some underlying pulmonary fibrosis.
[2019-01-27] MEDS: TAMSULOSIN 0.4 MG CAP.ER.24H PO SCH (20:31)
[2019-01-27] MEDS: MELATONIN 5 MG TABLET PO SCH (20:31)
--- NOTE | 2019-01-27 20:58 | PN ---
PROGRESS NOTE CHIEF COMPLAINT: Pneumonitis with dementia. HISTORY OF PRESENT ILLNESS: This gentleman remains fairly stable and continues to improve. He still has rhonchi and productive cough. PHYSICAL EXAMINATION: On physical exam, his vital signs are normal. He is afebrile. He is lethargic, but this is usual for him. Chest demonstrates rhonchi bilaterally still. Cardiac exam is normal. Abdomen is soft. IMPRESSION: 1. Pneumonitis. 2. Dementia. PLAN: Continue with IV fluids and antibiotics and the first of the week we will try to get him back to the skilled nursing. MMODL / PORSCHEN: [id number] /
[2019-01-28] MEDS: PIPERACILLIN-TAZOBACTAM 3.375 GM in SODIUM CHLORIDE 0.9% 100 ML IVPB SCH ×2 (04:26→11:49)
[2019-01-28] MEDS: ASPIRIN 81 MG PO SCH (08:07)
[2019-01-28] MEDS: METOPROLOL TARTRATE 12.5 MG TAB PO SCH (08:07)
[2019-01-28] MEDS: FORMOTEROL FUMARATE 20 MCG/2 ML NEBU INHALATION SCH (08:50)
[2019-01-28] MEDS: IPRATROPIUM-ALBUTEROL 3 ML NEB INHALATION SCH ×2 (08:50→12:47)
[2019-01-28] MEDS: BUDESONIDE 1 MG/2 ML NEBU INHALATION SCH (08:50)
[2019-01-28 11:52] VITALS: BMI 22.2
--- NOTE | 2019-01-28 12:15 | DS ---
DISCHARGE SUMMARY CHIEF COMPLAINT: Pneumonitis. HISTORY OF PRESENT ILLNESS AND PHYSICAL EXAM: Details of this man's history and physical can be found in the initial workup. LABORATORY STUDIES: While he was in the hospital he had laboratory studies, details of which can be found laboratory section of his chart. COURSE IN HOSPITAL: After admission he was placed on bedrest with IV fluids and intravenous antibiotics as well as updrafts. His chest cleared very slowly. He gradually began will bite more awake and alert and started to eat a little bit better. He was doing well enough it was felt he could go back to the custodial on the . FINAL DIAGNOSIS: 1. Bilateral bronchial pneumonia. 2. Dementia. 3. Coronary artery disease. 4. Hypertension. 5. Frequent urinary tract infections. OPERATIONS: None. CONSULTATIONS: Pulmonology/is improved He is improved. MMODL / IJN: [id number] /
[2019-01-28 13:32] VITALS: BP 110/61; PULSE 78; RESP 16; TEMP 97.7
--- NOTE | 2019-01-28 13:45 | PN ---
PROGRESS NOTE DATE OF SERVICE: 01/28/2019 REASON FOR FOLLOWUP: Pneumonia possible aspiration. INTERVAL HISTORY: The patient is currently afebrile. Patient has been breathing comfortably. No worsening cough has been noted by the family member. No nausea or vomiting, choking on the food or any diarrhea. PHYSICAL EXAMINATION: On examination, blood pressure 120/65 with the pulse of 69, temperature 97.6. He is 92% on room air. General description is an elderly male lying in bed in no distress. RESPIRATORY SYSTEM: Unlabored breathing, decreased breath sounds at the bases. No wheeze. HEART: S1, S2. Regular rate and rhythm. ABDOMEN: Soft, no tenderness. LABS: Hemoglobin 11.6, white count 10.9. BUN of 18, creatinine 1.13. Blood culture has been negative. DIAGNOSTIC IMPRESSION AND PLAN: Patient admitted to the hospital with pneumonia. possible aspiration etiology. Overall clinical improvement. Will benefit finish therapy with oral augmentin and close outpatient followup. Family at the bedside. Their questions were answered. MMODL / IJN: [id number] / LOU
--- NOTE | 2019-01-29 10:27 | CDI ---
Documentation Clarification Form Date: 01/29/2019 From: Danielle Lyles Phone: If questions call Breanne Cardoso @ [phone], Hours-8:30 am & 5 pm M- F Admit Date: 01/22/2019 6:30:00 PM Patient Name: Mauro Simmons Visit Number: [id number] Discharge Date: 01/28/2019 3:27:00 PM ATTENTION: The Clinical Documentation Specialists (CDI) and [facility] Coding Staff appreciate your assistance in clarifying documentation. Please respond to the clarification below the line at the bottom and electronically sign. The CDI & [facility] Coding staff will review the response and follow-up if needed. Please note: Queries are made part of the Legal Health Record. If you have any questions, please contact the author of this message via ITS. Dr. Gama Hart The diagnosis aspiration possible gram-negative pneumonia was documented in the ED note,consults, PNs 01/24 & 01/27, but is not consistently noted in subsequent documentation. History/Risk Factors: dementia, dysphagia, ATN, AECOPD Clinical Indicators: WBC-13.3, lactic acid-3.5/4.7, lactic ac sepsis rflx-Y Treatment: IV fluids, IV Levquin, IV Zoysn, Please clarify if the above diagnosis was: Aspiration pneumonia with possible gram negative pneumonia Bronchopneumonia Aspiration pneumonia ruled out Other, please specify Clinically unable to determine MTDD
--- NOTE | 2019-02-13 05:18 | MISC ---
MISCELLANOUS REPORT QUERY Bronchopneumonia. MMODL / IJN: [id number] /
--- NOTE | 2019-02-13 12:52 | CDI ---
Documentation Clarification Form Date: 02/13/2019 From: Danielle Lyles Phone: If questions call Breanne Cardoso @ [phone], Hours-8:30 am & 5 pm MToño Jeronimo Admit Date: 01/22/2019 6:30:00 PM Patient Name: Mauro Simmons Visit Number: [id number] Discharge Date: 01/28/2019 3:27:00 PM ATTENTION: The Clinical Documentation Specialists (CDI) and [facility] Coding Staff appreciate your assistance in clarifying documentation. Please respond to the clarification below the line at the bottom and electronically sign. The CDI & [facility] Coding staff will review the response and follow-up if needed. Please note: Queries are made part of the Legal Health Record. If you have any questions, please contact the author of this message via ITS. Dr. Vishnu Covington Acute kidney injury related to ATN is documented in the the 01/24 PN. History Risk factors/Other underlying illness: bronchopneumonia, COPD, acidosis, dementia, dysphagia UA: Specfic gravity - 1.009, Protein-neg, Ketones-neg, blood-neg, nitrite-neg, urobilinogen-<2.0, leukocyte esterace- neg BUN: 21, 22, 24, 29, 18 CR: 1.29, 1.19, 1.24, 1.34, 1.23 GFR: 49, 54, 52, 47, 52 [employer] defines JORGE as the occurrence of any 1 of the following: Increase in serum creatinine level by 0.3 mg/dl, measured prospectively by at least 2 separate levels obtained within 48 hrs, or Increase in serum creatinine level to 1.5 times baseline or greater, which is known or presumed to have occurred within the prior 7 days, or A urine volume of less than 0.5 ml/kg/h for 6 hours or longer. In your professional opinion, can you please clarify: Acute kidney injury with ATN ruled out Acute kidney injury with ATN ruled in JORGE ruled in Unable to determine Other, please specify unable to determine MTDD
== END 2019-01-28 15:27 | DRG 194 ==
LOC: EC 16:00 → 4MS4W 18:30
PROVIDERS: ADMIT Family Medicine; ATTEND Family Medicine
DX: J18.0 Bronchopneumonia, unspecified organism (principal); J44.0 Chronic obstructive pulmonary disease with (acute) lower respiratory infection; J44.1 Chronic obstructive pulmonary disease with (acute) exacerbation; E87.2 Acidosis; R13.10 Dysphagia, unspecified; E86.0 Dehydration; F03.90 Unspecified dementia, unspecified severity, without behavioral disturbance, psychotic disturbance, mood disturbance, and anxiety; I25.10 Atherosclerotic heart disease of native coronary artery without angina pectoris; K21.9 Gastro-esophageal reflux disease without esophagitis; I10 Essential (primary) hypertension; Y95 Nosocomial condition; R09.02 Hypoxemia; E78.1 Pure hyperglyceridemia; R26.9 Unspecified abnormalities of gait and mobility; R91.8 Other nonspecific abnormal finding of lung field; Z79.82 Long term (current) use of aspirin; Z79.899 Other long term (current) drug therapy; Z87.891 Personal history of nicotine dependence; Z86.73 Personal history of transient ischemic attack (TIA), and cerebral infarction without residual deficits; Z86.79 Personal history of other diseases of the circulatory system; Z90.49 Acquired absence of other specified parts of digestive tract; Z87.01 Personal history of pneumonia (recurrent); Z95.1 Presence of aortocoronary bypass graft; Z99.3 Dependence on wheelchair; Z87.440 Personal history of urinary (tract) infections; Z82.49 Family history of ischemic heart disease and other diseases of the circulatory system
CPT/HCPCS: 36415; 71045; 71046; 80053; 81003; 82550; 83605; 83735; 83880; 84484; 85025; 85027; 85610; 85730; 87040; 93005; 94640; 94760; 96365; 96375; 99285